=== PATIENT | male | born 1955 | race Caucasian/White ===

== ENCOUNTER 2018-12-10 17:21 | Observation (INO) | payer OTHER ==
[2018-12-10] MEDS ORDERED: hydrALAZINE HCL 20 MG/ML 1 ML VIAL IVP STA (17:47)
[2018-12-10] MEDS ORDERED: MORPHINE SULFATE 4 MG/ML SYRINGE IVP STA (17:51)
--- NOTE | 2018-12-10 17:53 | ED ---
General Adult HPI - General Chief complaint: Chest Pain Stated complaint: Chest pain Time Seen by Provider: 12/10/18 17:30 Source: patient, RN notes reviewed, old records reviewed Mode of arrival: wheelchair Limitations: no limitations - History of Present Illness Initial comments: 63-year-old male presents for evaluation of chest pain. Patient's pain is been ongoing for the past 3 days. Denies exertional component to his pain. This probably central left-sided chest pain with some paresthesia to the left arm. Patient has no known history of coronary artery disease. He does have history of aortic aneurysm which is being followed as an outpatient. Denies back pain. Denies nausea or diaphoresis. Denies abdominal pain. Denies extremity pain. Patient does have history of high blood pressure, currently on Toprol. He has not taken this yet today. He is a nonsmoker and otherwise healthy. - Related Data Home Medications Medication Instructions Recorded Confirmed Aspirin EC [Ecotrin Low Dose] 81 mg PO DAILY 12/10/18 12/10/18 Fluticasone Nasal [place] [Flonase 1 spray EA NOSTRIL DAILY PRN 12/10/18 12/10/18 Nasal [place]] Metoprolol Succinate (ER) [Toprol 25 mg PO HS 12/10/18 12/10/18 Xl] Multivitamins, Thera [Multivitamin 1 tab PO DAILY 12/10/18 12/10/18 (formulary)] Nitroglycerin Sl Tabs [Nitrostat] 0.4 mg SUBLINGUAL Q5M PRN 12/10/18 12/10/18 Allergies Allergy/AdvReac Type Severity Reaction Status Date / Time sulfamethoxazole Allergy Rash/Hives Verified 12/10/18 17:55 [From Bactrim] trimethoprim [From Bactrim] Allergy Rash/Hives Verified 12/10/18 17:55 Review of Systems ROS Statement: Those systems with pertinent positive or pertinent negative responses have been documented in the HPI. ROS Other: All systems not noted in ROS Statement are negative. Past Medical History Additional Past Medical History / Comment(s): kidney stones , anyerysum History of Any Multi-Drug Resistant Organisms: None Reported Additional Past Surgical History / Comment(s): lithotripsy Past Psychological History: No Psychological Hx Reported Smoking Status: Never smoker Past Alcohol Use History: Occasional Past Drug Use History: None Reported General Exam Limitations: no limitations General appearance: alert, in no apparent distress Head exam: Present: atraumatic, normocephalic Eye exam: Present: normal appearance, PERRL, EOMI ENT exam: Present: normal exam Neck exam: Present: normal inspection, tenderness Respiratory exam: Present: normal lung sounds bilaterally. Absent: respiratory distress, wheezes Cardiovascular Exam: Present: regular rate, normal rhythm, systolic murmur GI/Abdominal exam: Present: soft. Absent: distended, tenderness, guarding Extremities exam: Present: normal inspection, normal capillary refill, other ( Normal pulse exam, bilateral radial pulses 2+). Absent: pedal edema, calf tenderness Neurological exam: Present: alert, oriented X3, CN II-XII intact. Absent: motor sensory deficit Psychiatric exam: Present: normal affect, normal mood Skin exam: Present: warm, dry, intact. Absent: cyanosis, diaphoretic, pallor Course Vital Signs 12/10/18 12/10/18 17:27 18:06 Temperature 98.7 F Pulse Rate 62 84 Respiratory 20 18 Rate Blood Pressure 170/88 191/102 O2 Sat by Pulse 10 L 98 Oximetry EKG Findings - EKG Comments: EKG Findings:: EKG: Sinus bradycardia, first-degree AV block, left axis deviation, no ST segment elevation or depression, ventricular rate of 59, MT interval 260, QRS duration 94, QTC 423 Medical Decision Making - Medical Decision Making 63-year-old male presenting with intermittent chest pain over the past 3 days. History of aortic aneurysm. Patient's blood pressure is significantly elevated on arrival. There is concern for dissection. CT angiography is obtained, negative for dissection, shows 4.5 cm thoracic descending aneurysm, mild cardiomegaly, and does show coronary calcifications. Chest x-ray negative for any acute cardiac disease. CBC and CMP are unremarkable, initial troponin is negative. Patient given aspirin and started on heparin emergency department. Given the stuttering nature of his symptoms over the past 3 days as well as coronary calcifications on CT, I will admit this patient for unstable angina, serial cardiac enzymes, telemetry, and cardiology consultation. Case discussed with Dr. Chau, we will admit - Lab Data Result diagrams: 12/10/18 17:55 12/10/18 17:55 Lab Results 12/10/18 12/10/18 12/10/18 Range/Units 17:55 17:55 17:55 WBC 6.5 (3.8-10.6) k/uL RBC 4.91 (4.30-5.90) m/uL Hgb 14.5 (13.0-17.5) gm/dL Hct 41.8 (39.0-53.0) % MCV 85.1 (80.0-100.0) fL MCH 29.5 (25.0-35.0) pg MCHC 34.7 (31.0-37.0) g/dL RDW 12.9 (11.5-15.5) % Plt Count 200 (150-450) k/uL Neutrophils % 63 % Lymphocytes % 25 % Monocytes % 4 % Eosinophils % 6 % Basophils % 1 % Neutrophils # 4.1 (1.3-7.7) k/uL Lymphocytes # 1.6 (1.0-4.8) k/uL Monocytes # 0.3 (0-1.0) k/uL Eosinophils # 0.4 (0-0.7) k/uL Basophils # 0.0 (0-0.2) k/uL PT (9.0-12.0) sec INR (<1.2) APTT (22.0-30.0) sec Sodium 141 (137-145) mmol/L Potassium 3.9 (3.5-5.1) mmol/L Chloride 107 (98-107) mmol/L Carbon Dioxide 27 (22-30) mmol/L Anion Gap 7 mmol/L BUN 27 H (9-20) mg/dL Creatinine 0.93 (0.66-1.25) mg/dL Est GFR (CKD-EPI)AfAm >90 (>60 ml/min/1.73 sqM) Est GFR (CKD-EPI)NonAf 87 (>60 ml/min/1.73 sqM) Glucose 90 (74-99) mg/dL Calcium 9.6 (8.4-10.2) mg/dL Magnesium 2.0 (1.6-2.3) mg/dL Total Bilirubin 0.6 (0.2-1.3) mg/dL AST 24 (17-59) U/L ALT 36 (21-72) U/L Alkaline Phosphatase 60 (38-126) U/L Total Creatine Kinase 227 H (55-170) U/L CK-MB (CK-2) 1.6 (0.0-2.4) ng/mL CK-MB (CK-2) Rel Index 0.7 Troponin I <0.012 (0.000-0.034) ng/mL Total Protein 7.0 (6.3-8.2) g/dL Albumin 4.5 (3.5-5.0) g/dL 12/10/18 Range/Units 17:55 WBC (3.8-10.6) k/uL RBC (4.30-5.90) m/uL Hgb (13.0-17.5) gm/dL Hct (39.0-53.0) % MCV (80.0-100.0) fL MCH (25.0-35.0) pg MCHC (31.0-37.0) g/dL RDW (11.5-15.5) % Plt Count (150-450) k/uL Neutrophils % % Lymphocytes % % Monocytes % % Eosinophils % % Basophils % % Neutrophils # (1.3-7.7) k/uL Lymphocytes # (1.0-4.8) k/uL Monocytes # (0-1.0) k/uL Eosinophils # (0-0.7) k/uL Basophils # (0-0.2) k/uL PT 10.4 (9.0-12.0) sec INR 1.0 (<1.2) APTT 24.3 (22.0-30.0) sec Sodium (137-145) mmol/L Potassium (3.5-5.1) mmol/L Chloride (98-107) mmol/L Carbon Dioxide (22-30) mmol/L Anion Gap mmol/L BUN (9-20) mg/dL Creatinine (0.66-1.25) mg/dL Est GFR (CKD-EPI)AfAm (>60 ml/min/1.73 sqM) Est GFR (CKD-EPI)NonAf (>60 ml/min/1.73 sqM) Glucose (74-99) mg/dL Calcium (8.4-10.2) mg/dL Magnesium (1.6-2.3) mg/dL Total Bilirubin (0.2-1.3) mg/dL AST (17-59) U/L ALT (21-72) U/L Alkaline Phosphatase (38-126) U/L Total Creatine Kinase (55-170) U/L CK-MB (CK-2) (0.0-2.4) ng/mL CK-MB (CK-2) Rel Index Troponin I (0.000-0.034) ng/mL Total Protein (6.3-8.2) g/dL Albumin (3.5-5.0) g/dL Critical Care Time Critical Care Time: Yes Total Critical Care Time: 35 Disposition Clinical Impression: Unstable angina pectoris Disposition: ADMITTED IP TO THIS [facility] Condition: Stable Is patient prescribed a controlled substance at d/c from ED?: No Referrals: Epi Velazquez MD [Primary Care Provider] - 1-2 days Time of Disposition: 20:31
[2018-12-10 18:17] LABS: Basophils % (A) 1 %; Eosinophils # (A) 0.4 k/uL (0-0.7); Eosinophils % (A) 6 %; HCT 41.8 % (39.0-53.0); HGB 14.5 gm/dL (13.0-17.5); Lymphocytes # (A) 1.6 k/uL (1.0-4.8); Lymphocytes % (A) 25 %; MCH 29.5 pg (25.0-35.0); MCHC 34.7 g/dL (31.0-37.0); MCV 85.1 fL (80.0-100.0); Mean Platelet Volume 7.8; Monocytes # (A) 0.3 k/uL (0-1.0); Monocytes % (A) 4 %; Neutrophils # (A) 4.1 k/uL (1.3-7.7); Neutrophils % (A) 63 %; Platelet Count 200 k/uL (150-450); RBC 4.91 m/uL (4.30-5.90); RDW 12.9 % (11.5-15.5); WBC 6.5 k/uL (3.8-10.6)
[2018-12-10 18:25] LABS: Partial Thromboplastin Time 24.3 sec (22.0-30.0); Prothrombin Time 10.4 sec (9.0-12.0)
[2018-12-10 18:26] LABS: ALT 36 U/L (21-72); AST 24 U/L (17-59); Albumin 4.5 g/dL (3.5-5.0); Alkaline Phosphatase 60 U/L (38-126); Anion Gap 7 mmol/L; Blood Urea Nitrogen 27 mg/dL (9-20); Calcium 9.6 mg/dL (8.4-10.2); Carbon Dioxide 27 mmol/L (22-30); Chloride 107 mmol/L (98-107); Glucose 90 mg/dL (74-99); Potassium 3.9 mmol/L (3.5-5.1); Sodium 141 mmol/L (137-145); Total Bilirubin 0.6 mg/dL (0.2-1.3)
[2018-12-10 18:35] LABS: Creatine Kinase 227 U/L (55-170)
[2018-12-10] MEDS ORDERED: LABETALOL 5 MG/ML VIAL MDV IVP STA (18:35)
--- NOTE | 2018-12-10 18:47 | XR ---
EXAMINATION: XR chest 1V portable DATE AND TIME: 12/10/2018 6:08 PM CLINICAL INDICATION: Pain; chest pain and history of descending aortic aneurysm TECHNIQUE: AP upright portable COMPARISON: None FINDINGS: The lungs are clear. The pleural spaces are negative. The cardiac silhouette is not enlarged. Thoracic aorta tortuosity noted. The skeletal structures and soft tissues are negative for acute findings. IMPRESSION: 1. NO DEFINITE ACUTE PROCESS. 2. THORACIC AORTA TORTUOSITY.
[2018-12-10 18:48] LABS: Creatine Kinase MB 1.6 ng/mL (0.0-2.4); Troponin I <0.012 ng/mL (0.000-0.034)
--- NOTE | 2018-12-10 19:30 | CT ---
EXAMINATION TYPE: CT angio thor/abd pel aorta without and with IV contrast, with 3-D reconstruction r enderings DATE OF EXAM: 12/10/2018 COMPARISON: None HISTORY: Chest pain. hx of aneurysm CT DLP: 1399.1 mGycm. Automated Exposure Control for Dose Reduction was Utilized. CONTRAST: CT scan of the thorax, abdomen and pelvis is performed without and with IV Contrast, patien t injected with 100 mL of Isovue 370. 3-D reconstructions FINDINGS: LUNGS, PLEURAL SPACES AND AIRWAYS: The lungs are grossly clear, there is no concerning parenchymal ma ss or nodule identified. There is no pleural effusion or pneumothorax seen. The tracheobronchial t ree is patent. MEDIASTINUM: The thoracic aorta is negative for intramural hematoma or other focal findings on the noncontrast data set. There is no aortic dissection. There is aortic tortuosity noted. The caliber of the ascending thoracic aorta measures 4.5 cm diameter, top normal is 3.9 cm diameter. The anterior a ortic arch caliber measures 3.7 cm. Just distal to the origin of the left subclavian artery the poste rior aortic arch caliber measures 3.5 cm. The proximal descending thoracic aortic caliber measures 3. 1 cm, mid thoracic aorta caliber measures 3.2 cm, and just above the hiatus it measures 2.8 cm calibe r. There is mild cardiomegaly with panchamber enlargement. Minimal coronary calcifications are evident . No pericardial effusion. No mediastinal or hilar adenopathy. THORACIC SKELETAL STRUCTURES: No acute findings.. LIVER/GB: No significant abnormality is appreciated. PANCREAS: No significant abnormality is seen. SPLEEN: No significant abnormality is seen. ADRENALS: No significant abnormality is seen. KIDNEYS: No acute process. Large bilateral renal cysts are incidentally noted at the junction of the 2 large left upper pole posterior cyst is a subcentimeter high attenuation focus, likely calcificatio n. In addition, there is a geographic cluster of 1 to 9 mm nonobstructing left renal upper pole calcif ications, with the central clustering suggesting staghorn development. BOWEL: No significant abnormality is seen. GENITAL ORGANS: No gross abnormality seen. LYMPH NODES: No greater than 1cm abdominal or pelvic lymph nodes are appreciated. OSSEOUS STRUCTURES: No significant abnormality is seen. VASCULATURE: No acute findings. The precontrast data set is negative for intramural hematoma. There i s no acute aortic process. No aneurysmal dilation of the aorta or the iliac arterial systems. No diss ection or aneurysm. No acute venous abnormality. IMPRESSION: CHEST: Aneurysmal dilation of the thoracic aorta as described. Mild cardiomegaly and coronary calcifi cations. ABDOMEN AND PELVIS: 1) No acute process. 2) Large bilateral renal cystic masses, likely benign. Recommend one year follow-up dedicated renal m ass protocol CT or MRI without and with contrast - to ensure stability over time.
[2018-12-10] MEDS ORDERED: LABETALOL SYRINGE 5 MG/ML IVP STA (19:45)
[2018-12-10] MEDS ORDERED: ASPIRIN 325 MG TAB PO STA (19:49)
[2018-12-10] MEDS ORDERED: NITROGLYCERIN SL TABS 0.4 MG TAB SUBLINGUAL PRN (19:49)
[2018-12-10] MEDS ORDERED: amLODIPine 5 MG TAB PO STA (19:50)
[2018-12-10] MEDS ORDERED: HEPARIN SODIUM,PORCINE 5,000 UNIT/ML 1 ML VIAL IV PRN (19:50)
[2018-12-10] MEDS ORDERED: HEPARIN SODIUM,PORCINE 5,000 UNIT/ML 1 ML VIAL IV ONE (19:50)
[2018-12-10] MEDS ORDERED: METOPROLOL SUCCINATE (ER) 25 MG TAB.ER.24H PO STA (19:51)
[2018-12-10] MEDS ORDERED: SODIUM CHLORIDE 0.9% 500 ML 500 ML IV ONE (19:59)
[2018-12-10] MEDS ORDERED: HEPARIN SOD,PORK IN 0.45% NACL 25,000 UNIT in 0.45% NACL 1 250ML.BAG IV SCH (20:00)
[2018-12-10] MEDS ORDERED: MORPHINE SULFATE 4 MG/ML SYRINGE IV PRN (20:32)
[2018-12-10] MEDS ORDERED: ACETAMINOPHEN TAB 325 MG TAB PO PRN (20:32)
[2018-12-10] MEDS ORDERED: NALOXONE 0.4 MG/ML 1 ML VIAL IV PRN (20:32)
[2018-12-10] MEDS ORDERED: METOPROLOL SUCCINATE (ER) 25 MG TAB.ER.24H PO SCH (21:00)
[2018-12-10 22:17] VITALS: BMI 28.9
[2018-12-11] MEDS ORDERED: MELATONIN 3 MG TABLET PO SCH (00:15)
[2018-12-11 00:27] LABS: Creatine Kinase 177 U/L (55-170)
[2018-12-11 00:40] LABS: Creatine Kinase MB 1.3 ng/mL (0.0-2.4); Troponin I <0.012 ng/mL (0.000-0.034)
[2018-12-11 04:23] VITALS: RESP 18
[2018-12-11 06:17] LABS: Basophils % (A) 1 %; Eosinophils # (A) 0.3 k/uL (0-0.7); Eosinophils % (A) 6 %; HCT 41.6 % (39.0-53.0); Lymphocytes # (A) 1.4 k/uL (1.0-4.8); Lymphocytes % (A) 27 %; MCH 29.1 pg (25.0-35.0); MCHC 33.7 g/dL (31.0-37.0); MCV 86.3 fL (80.0-100.0); Mean Platelet Volume 7.1; Monocytes # (A) 0.3 k/uL (0-1.0); Monocytes % (A) 5 %; Neutrophils # (A) 3.1 k/uL (1.3-7.7); Neutrophils % (A) 60 %; Platelet Count 199 k/uL (150-450); RBC 4.82 m/uL (4.30-5.90); RDW 12.9 % (11.5-15.5); WBC 5.2 k/uL (3.8-10.6)
[2018-12-11 06:26] LABS: Anion Gap 7 mmol/L; Blood Urea Nitrogen 21 mg/dL (9-20); Carbon Dioxide 28 mmol/L (22-30); Chloride 106 mmol/L (98-107); Glucose 94 mg/dL (74-99); Potassium 3.7 mmol/L (3.5-5.1); Sodium 141 mmol/L (137-145)
[2018-12-11 06:53] LABS: Creatine Kinase 153 U/L (55-170)
[2018-12-11 07:05] LABS: Creatine Kinase MB 1.1 ng/mL (0.0-2.4); Troponin I <0.012 ng/mL (0.000-0.034)
--- NOTE | 2018-12-11 08:06 | P.CRDCN ---
History of Present Illness Consult date: 12/11/18 Requesting physician: Zheng Chau Consult reason: chest pain Chief complaint: Chest pain History of present illness: This is a pleasant 63-year-old gentleman with history of hypertension , nondiabetic, no hyperlipidemia, nonsmoker, rare EtOH, who has history of abdominal aortic aneurysm for which she has been followed at [facility]. He has recently moved to this area. He presents to the hospital on this occasion with symptoms of chest discomfort. He states that around 3 in the morning he woke up with a sharp discomfort in the center of his chest that radiated up into his jaw. Overall since then he is just didn't feel well, he denies any overt chest pressure heaviness just states he had an uncomfortable feeling in his chest. He denies any shortness of breath, no nausea, no diaphoresis. According to the patient, 6 years ago he had an episode of chest discomfort for which a stress test was performed which was reported to be normal. At that time the patient was found to have this abdominal aortic aneurysm which has been followed since then. He used to follow with a museum curator at [facility] in his recently moved to [place]. His most recent stress test was 3 years ago which he states was normal. He has been told in the past that his abdominal aneurysm has measured in the range of 4.3-4.5. His blood pressure on arrival here 170/80, heart rate in the 60s, 100% on room air. Blood pressure did go up to 220/122. This morning's blood pressure 138/70. Patient's home medications included Toprol 25 mg daily, aspirin 81 mg daily, multivitamin, and Flonase nasal spray when necessary. A computed tomography scan of the abdomen and pelvis was performed on admission here, revealed no acute process, large bilateral renal cystic mass is likely benign. AAA measuring 4.5 cm in diameter. Chest x-ray did not reveal any acute process. EKG shows normal sinus rhythm with no acute changes. White blood cell count is normal, hemoglobin 14.0, platelet count 199. Sodium 141, potassium 3.7, BUN 21 and creatinine 0.9. Troponins have been negative 3. At the time of my examination this morning he is currently chest pain-free. Past Medical History Additional Past Medical History / Comment(s): kidney stones , aortic aneurysm History of Any Multi-Drug Resistant Organisms: None Reported Past Surgical History: Tonsillectomy Additional Past Surgical History / Comment(s): lithotripsy x 5 times; eye sx, inguinal hernia (when pt was a baby) hand sx(ganglion cyst) foot sx Past Anesthesia/Blood Transfusion Reactions: Postoperative Nausea & Vomiting ( PONV) Smoking Status: Never smoker - Past Family History Mother Family Medical History: Cancer Additional Family Medical History / Comment(s): uterine CA Father Additional Family Medical History / Comment(s): rheumatic fever when young Medications and Allergies Home Medications Medication Instructions Recorded Confirmed Type Aspirin EC [Ecotrin Low Dose] 81 mg PO DAILY 12/10/18 12/10/18 History Fluticasone Nasal [place] [Flonase 1 spray EA NOSTRIL DAILY PRN 12/10/18 12/10/18 History Nasal [place]] Metoprolol Succinate (ER) [Toprol 25 mg PO HS 12/10/18 12/10/18 History Xl] Multivitamins, Thera [Multivitamin 1 tab PO DAILY 12/10/18 12/10/18 History (formulary)] Nitroglycerin Sl Tabs [Nitrostat] 0.4 mg SUBLINGUAL Q5M PRN 12/10/18 12/10/18 History Allergies Allergy/AdvReac Type Severity Reaction Status Date / Time sulfamethoxazole Allergy Rash/Hives Verified 12/10/18 17:55 [From Bactrim] trimethoprim [From Bactrim] Allergy Rash/Hives Verified 12/10/18 17:55 Physical Exam Vitals: Vital Signs Temp Pulse Pulse Resp BP BP Pulse Ox 12/11/18 04:00 97.6 F 60 18 139/75 96 12/10/18 23:51 68 17 12/10/18 23:42 98 F 68 17 132/81 96 12/10/18 22:12 97.5 F L 68 17 137/88 98 12/10/18 21:00 58 L 13 145/84 96 12/10/18 20:30 133/83 12/10/18 20:00 65 18 172/104 99 12/10/18 19:30 66 16 156/104 99 12/10/18 19:00 75 19 205/105 100 12/10/18 18:30 69 20 172/99 100 12/10/18 18:06 84 18 191/102 98 12/10/18 18:00 65 13 210/122 100 12/10/18 17:35 100 12/10/18 17:27 98.7 F 62 20 170/88 10 L Intake and Output 12/10/18 12/11/18 12/11/18 22:59 06:59 14:59 Intake Total 500 725.816 56.525 Balance 500 725.816 56.525 Intake: IV 160 normal saline 160 Intake, IV Titration 65.816 56.525 Amount Heparin Sod,Pork in 0.45% 65.816 56.525 NaCl 25,000 unit In 0.45 % NaCl 1 250ml.bag @ 10.8 UNITS/KG/HR 9.97 mls/hr IV .Q24H [facility] Rx#: [id number] Oral 500 500 Other: Voiding Method Toilet # Voids 1 Weight 92.397 kg 91.7 kg PHYSICAL EXAMINATION: GENERAL: HEENT: Head is atraumatic, normocephalic. Pupils equal, round. Sclera anicteric. Conjunctiva are clear. Mucous membranes of the mouth are moist. Neck is supple. There is no elevated jugular venous pressure. No Carotid bruit is heard. HEART EXAMINATION: 63-year-old gentleman in no acute distress at the time of my examination CHEST EXAMINATION: Lungs are clear to auscultation and precussion. No chest wall tenderness is noted on palpation or with deep breathing. ABDOMEN: Soft, nontender. Bowel sounds are heard. No organomegaly noted. EXTREMITIES: 2+ peripheral pulses with no evidence of peripheral edema and no calf tenderness noted. NEUROLOGIC patient is awake, alert and oriented 3 . . Results 12/11/18 05:40 12/11/18 05:40 Cardiac Enzymes 12/10/18 12/10/18 12/10/18 Range/Units 17:55 17:55 23:49 AST 24 (17-59) U/L CK-MB (CK-2) 1.6 1.3 (0.0-2.4) ng/mL Troponin I <0.012 <0.012 (0.000-0.034) ng/mL 12/11/18 Range/Units 05:40 AST (17-59) U/L CK-MB (CK-2) 1.1 (0.0-2.4) ng/mL Troponin I <0.012 (0.000-0.034) ng/mL Coagulation 12/10/18 12/11/18 Range/Units 17:55 01:52 PT 10.4 (9.0-12.0) sec APTT 24.3 59.9 H (22.0-30.0) sec CBC 12/10/18 12/11/18 Range/Units 17:55 05:40 WBC 6.5 5.2 (3.8-10.6) k/uL RBC 4.91 4.82 (4.30-5.90) m/uL Hgb 14.5 14.0 (13.0-17.5) gm/dL Hct 41.8 41.6 (39.0-53.0) % Plt Count 200 199 (150-450) k/uL Comprehensive Metabolic Panel 12/10/18 12/11/18 Range/Units 17:55 05:40 Sodium 141 141 (137-145) mmol/L Potassium 3.9 3.7 (3.5-5.1) mmol/L Chloride 107 106 (98-107) mmol/L Carbon Dioxide 27 28 (22-30) mmol/L BUN 27 H 21 H (9-20) mg/dL Creatinine 0.93 0.91 (0.66-1.25) mg/dL Glucose 90 94 (74-99) mg/dL Calcium 9.6 9.0 (8.4-10.2) mg/dL AST 24 (17-59) U/L ALT 36 (21-72) U/L Alkaline Phosphatase 60 (38-126) U/L Total Protein 7.0 (6.3-8.2) g/dL Albumin 4.5 (3.5-5.0) g/dL Current Medications Generic Name Dose Route Start Last Admin Trade Name Freq PRN Reason Stop Dose Admin Acetaminophen 650 mg 12/10/18 20:32 Tylenol Tab PO Q6HR PRN Mild Pain or Fever > 100.5 Aspirin 81 mg 12/11/18 09:00 Aspirin PO DAILY LEANNE Heparin Sodium (Porcine) 0 unit 12/10/18 19:50 Heparin IV PER PROTOCOL PRN Low PTT Protocol Heparin Sodium/Sodium Chloride 250 mls @ 9.97 mls/hr 12/10/18 20:00 12/11/18 07:36 25,000 unit/ Sodium Chloride IV 10.8 units/kg/hr .Q24H LEANNE 9.97 mls/hr Titration Protocol 10.8 UNITS/KG/HR Melatonin 3 mg 12/11/18 00:15 12/11/18 00:29 Melatonin PO 3 mg HS LEANNE Administration Morphine Sulfate 4 mg 12/10/18 20:32 Morphine Sulfate (Inj) IV Q4HR PRN Severe Pain Naloxone HCl 0.2 mg 12/10/18 20:32 Narcan IV Q2M PRN Opioid Reversal Nitroglycerin 0.4 mg 12/10/18 19:49 Nitrostat SUBLINGUAL Q5M PRN Chest Pain Intake and Output 12/10/18 12/11/18 12/11/18 22:59 06:59 14:59 Intake Total 500 725.816 56.525 Balance 500 725.816 56.525 Intake: IV 160 normal saline 160 Intake, IV Titration 65.816 56.525 Amount Heparin Sod,Pork in 0.45% 65.816 56.525 NaCl 25,000 unit In 0.45 % NaCl 1 250ml.bag @ 10.8 UNITS/KG/HR 9.97 mls/hr IV .Q24H LEANNE Rx#: [id number] Oral 500 500 Other: Voiding Method Toilet # Voids 1 Weight 92.397 kg 91.7 kg 12/11/18 05:40 12/11/18 05:40 EKG Interpretations (text) EKG shows normal sinus rhythm with no acute changes. Assessment and Plan Plan: Assessment and plan #1 chest pain with atypical features for acute coronary syndrome. Troponins negative 3. EKG shows normal sinus rhythm with no acute changes. #2 hypertension #3 abdominal aortic aneurysm Plan We will obtain an echocardiogram with Doppler study. Discontinue IV heparin. Patient has been recommended to undergo a stress test. Further recommendations will be based on those findings and patient's clinical course. DNP note has been reviewed, I agree with a documented findings and plan of care. Patient was seen and examined.
[2018-12-11] MEDS ORDERED: ASPIRIN 81 MG PO SCH (09:00)
[2018-12-11] MEDS ORDERED: amLODIPine 5 MG TAB PO SCH (09:00)
[2018-12-11 12:17] VITALS: TEMP 98.2
[2018-12-11 12:19] VITALS: BP 151/96; PULSE 57
--- NOTE | 2018-12-11 15:10 | ECHOS ---
STRESS ECHOCARDIOGRAM INDICATIONS: Chest pain. MEDICATIONS: Toprol. BASELINE HEART RATE: 63 BASELINE BLOOD PRESSURE: 140/92 MAXIMUM HEART RATE: 122 MAXIMUM BLOOD PRESSURE: 185/98 85% MPHR: 133 100% MPHR: 157 METS: 12.1 MAXIMUM STAGE REACHED: 4 TOTAL EXERCISE TIME: 11:00 CLINICAL INFORMATION: STRESS DATA: Pretesting physical examination showed a heart rate of 63, pressure is 140/92 mmHg. Baseline EKG showed sinus mechanism. The patient exercised on the treadmill according to Chris protocol for a total of 11 minutes and achieved 12.1 METS with max heart rate was 122, which is about 77% of maximum predicted heart rate. Maximum blood pressure was 185/98 mmHg. Clinically, the patient did not have any symptoms of chest pain or discomfort during the testing or on recovery. The EKG did not show any significant ST or T-wave abnormalities concerning for ischemia. ECHOCARDIOGRAM IMAGES: On echocardiogram images from parasternal long axis view, parasternal short axis view, apical 4 chamber and apical 2 chamber view were obtained as the baseline images, at the peak of the heart rate as well as on recovery. The echocardiogram images showed good augmentation in the left ventricular systolic function without any evidence of wall motion abnormalities concerning for ischemia. CONCLUSION: 1. Excellent exercise tolerance. 2. Normal EKG in response to exercise to the level of heart rate achieved, which is 77% of maximum predicted heart rate. 3. Normal echocardiogram to the level of heart rate achieved, which is 77% of maximum predicted heart rate. RAJEEV / LUPILLON: [id number] /
--- NOTE | 2018-12-11 15:26 | ECHOF ---
Referral Reason:assess lvf MEASUREMENTS -------- HEIGHT: 177.8 cm WEIGHT: 91.6 kg BP: 136/76 RVIDd: 3.2 cm (< 3.3) IVSd: 1.3 cm (0.6 - 1.1) LVIDd: 6.0 cm (3.9 - 5.3) LVPWd: 1.5 cm (0.6 - 1.1) IVSs: 2.1 cm LVIDs: 4.3 cm LVPWs: 1.7 cm LA Diam: 3.8 cm (2.7 - 3.8) LAESV Index (A-L): 32.87 ml/m Ao Diam: 4.3 cm (2.0 - 3.7) AV Cusp: 2.3 cm (1.5 - 2.6) MV EXCURSION: 15.965 mm (> 18.000) MV EF SLOPE: 39 mm/s (70 - 150) EPSS: 1.4 cm MV E Serafin: 0.46 m/s MV DecT: 322 ms MV A Serafin: 0.82 m/s MV E/A Ratio: 0.55 AR PHT: 630 ms RAP: 5.00 mmHg RVSP: 28.48 mmHg FINDINGS -------- Sinus rhythm. This was a technically good study. The left ventricle is mildly dilated. There is mild concentric left ventricular hypertrophy. Over all left ventricular systolic function is normal with, an EF between 55 - 60 %. The right ventricle is normal in size. LA is midly dilated 29-33ml/m2. The right atrium is normal in size. There is mild aortic valve sclerosis. The mitral valve leaflets are mildly thickened. There is trace to mild mitral regurgitation. Mild tricuspid regurgitation present. Right ventricular systolic pressure is normal at < 35 mmHg. Trace/mild (physiologic) pulmonic regurgitation. The aortic root is dilated measuring 4.3cm. Normal inferior vena cava with normal inspiratory collapse consistent with estimated right atrial pre ssure of 5 mmHg. The inferior vena cava is mildly dilated. There is no pericardial effusion. CONCLUSIONS -------- 1. Sinus rhythm. 2. This was a technically good study. 3. The left ventricle is mildly dilated. 4. There is mild concentric left ventricular hypertrophy. 5. Overall left ventricular systolic function is normal with, an EF between 55 - 60 %. 6. The right ventricle is normal in size. 7. LA is midly dilated 29-33ml/m2. 8. The right atrium is normal in size. 9. There is mild aortic valve sclerosis. 10. The mitral valve leaflets are mildly thickened. 11. There is trace to mild mitral regurgitation. 12. Mild tricuspid regurgitation present. 13. Right ventricular systolic pressure is normal at < 35 mmHg. 14. Trace/mild (physiologic) pulmonic regurgitation. 15. The aortic root is dilated measuring 4.3cm. 16. Normal inferior vena cava with normal inspiratory collapse consistent with estimated right atrial pressure of 5 mmHg. 17. The inferior vena cava is mildly dilated. 18. There is no pericardial effusion. ENTRY LEVEL ACCOUNT MANAGER: Tamanna Lord RDCS
[2018-12-11] MEDS ORDERED: ATORVASTATIN 40 MG TAB PO SCH (21:00)
--- NOTE | 2018-12-12 11:20 | P.HPIM ---
History of Present Illness H&P Date: 12/11/18 Chief Complaint: Chest pain HISTORY AND PHYSICAL AND DISCHARGE SUMMARY: This is a 63-year-old male patient of Dr. Epi Velazquez with past medical history of thoracic aortic aneurysm being monitored, hypertension. He recently moved to the [facility] from [place] and followed with a egg pasteurizer at [facility]. He states his cholesterol has been high-normal range and is not currently on a statin. Also recent CT was done last year to check his aneurysm and last stress test was done 3 years ago. Patient has history of having left-sided dull chest pain for couple of days along with tingling in his hand. He states he was sitting in front of a computer at the time it started. He did do some walking and symptoms did not change. Yesterday morning, he woke up with a sharp pain that woke him from sleep. This pain seemed to continue to bother him throughout the day. He took 1 nitroglycerin that seemed to help. He did not have any shortness of breath, nausea, palpitations, sweating. He just felt that something wasn't right. He came into [facility] emergency center for evaluation. His i nitial blood pressure was 220/122 his EKG was in normal sinus with no acute changes. CBC was essentially normal. Creatinine 0.9. Troponins negative on 3 draws chest x-ray showed no definite acute process. Thoracic aorta tortuosity. CAT scan revealed no acute process. Large bilateral renal cystic mass is likely benign. Recommend follow-up in one year. Chest showed aneurysmal dilatation of thoracic aorta at 4.5 cm. Mild cardiomegaly and coronary calcifications. Echocardiogram reveals EF of 55-60% without concentric left nuclear hypertrophy, mild mitral regurgitation, mild tricuspid regurgitation. Stress echo was normal and patient was cleared by cardiology for discharge. At the time of evaluation, patient was chest pain-free. Patient will be discharged home today in stable condition. Discharge Medication List Aspirin EC [Ecotrin Low Dose] 81 mg PO DAILY 12/10/18 [History] Fluticasone Nasal [place] [Flonase Nasal [place]] 1 spray EA NOSTRIL DAILY PRN [History] Metoprolol Succinate (ER) [Toprol XL] 25 mg PO HS 12/10/18 [History] Multivitamins, Thera [Multivitamin (formulary)] 1 tab PO DAILY 12/10/18 [History] Nitroglycerin Sl Tabs [Nitrostat] 0.4 mg SUBLINGUAL Q5M PRN 12/10/18 [History] Atorvastatin [Lipitor] 40 mg PO HS #30 tab 12/11/18 [Rx] Review of Systems All systems: negative Constitutional: Denies anorexia, Denies chills, Denies fatigue, Denies fever, Denies lethargy, Denies malaise, Denies poor appetite, Denies weakness Eyes: denies blurred vision, denies pain Ears, nose, mouth and throat: Denies dysphagia, Denies headache, Denies sore throat Cardiovascular: Reports chest pain, Denies dyspnea on exertion, Denies edema, Denies leg edema, Denies shortness of breath, Denies syncope Respiratory: Denies cough, Denies cough with sputum, Denies dyspnea, Denies excessive sputum, Denies hemoptysis, Denies home oxygen, Denies respiratory in fections, Denies wheezing Gastrointestinal: Denies abdominal pain, Denies diarrhea, Denies loss of appetite, Denies nausea, Denies vomiting Genitourinary: Denies dysuria Musculoskeletal: Denies fractures, Denies muscle weakness, Denies myalgias Integumentary: Denies pruritus, Denies rash, Denies wounds Neurological: Denies aphasia, Denies change in mentation, Denies change in speech, Denies confusion, Denies head injury, Denies headaches, Denies numbness, Denies seizures, Denies vertigo, Denies weakness Psychiatric: Denies anxiety, Denies depression Endocrine: Denies fatigue, Denies weight change Past Medical History Additional Past Medical History / Comment(s): kidney stones , aortic aneurysm History of Any Multi-Drug Resistant Organisms: None Reported Past Surgical History: Tonsillectomy Additional Past Surgical History / Comment(s): lithotripsy x 5 times; eye sx, inguinal hernia (when pt was a baby) hand sx(ganglion cyst) foot sx Past Anesthesia/Blood Transfusion Reactions: Postoperative Nausea & Vomiting (PONV) Smoking Status: Never smoker Additional Past Alcohol Use History / Comment(s): She is a lifelong nonsmoker. He denies any marijuana or illicit drug use. Drinks alcohol. He lives at home with his . - Past Family History Mother Family Medical History: Cancer Additional Family Medical History / Comment(s): Mother in her 60s from uterine cancer. Father Additional Family Medical History / Comment(s): rheumatic fever when young. Father at age 86 from old age. Sister(s) Additional Family Medical History / Comment(s): Patient has one sister that from some type of myelodysplastic disorder Daughter(s) Additional Family Medical History / Comment(s): Patient has 2 daughters with no major medical problems. Medications and Allergies Home Medications Medication Instructions Recorded Confirmed Type Aspirin EC [Ecotrin Low Dose] 81 mg PO DAILY 12/10/18 12/10/18 History Fluticasone Nasal [place] [Flonase 1 spray EA NOSTRIL DAILY PRN 12/10/18 12/10/18 History Nasal [place]] Metoprolol Succinate (ER) [Toprol 25 mg PO HS 12/10/18 12/10/18 History XL] Multivitamins, Thera [Multivitamin 1 tab PO DAILY 12/10/18 12/10/18 History (formulary)] Nitroglycerin Sl Tabs [Nitrostat] 0.4 mg SUBLINGUAL Q5M PRN 12/10/18 12/10/18 History Atorvastatin [Lipitor] 40 mg PO HS #30 tab 12/11/18 Rx Allergies Allergy/AdvReac Type Severity Reaction Status Date / Time sulfamethoxazole Allergy Rash/Hives Verified 12/10/18 17:55 [From Bactrim] trimethoprim [From Bactrim] Allergy Rash/Hives Verified 12/10/18 17:55 Physical Exam Vitals: Vital Signs Temp Pulse Pulse Resp BP BP Pulse Ox 12/11/18 04:00 97.6 F 60 18 139/75 96 12/10/18 23:51 68 17 12/10/18 23:42 98 F 68 17 132/81 96 12/10/18 22:12 97.5 F L 68 17 137/88 98 12/10/18 21:00 58 L 13 145/84 96 12/10/18 20:30 133/83 12/10/18 20:00 65 18 172/104 99 12/10/18 19:30 66 16 156/104 99 12/10/18 19:00 75 19 205/105 100 12/10/18 18:30 69 20 172/99 100 12/10/18 18:06 84 18 191/102 98 12/10/18 18:00 65 13 210/122 100 12/10/18 17:35 100 12/10/18 17:27 98.7 F 62 20 170/88 10 L Intake and Output 12/10/18 12/11/18 12/11/18 22:59 06:59 14:59 Intake Total 500 725.816 56.525 Balance 500 725.816 56.525 Intake: IV 160 normal saline 160 Intake, IV Titration 65.816 56.525 Amount Heparin Sod,Pork in 0.45% 65.816 56.525 NaCl 25,000 unit In 0.45 % NaCl 1 250ml.bag @ 10.8 UNITS/KG/HR 9.97 mls/hr IV .Q24H [facility] Rx#: [id number] Oral 500 500 Other: Voiding Method Toilet # Voids 1 1 Weight 92.397 kg 91.7 kg Gen: This is a 63-year-old male. He is sitting up in bed and appears to be comfortable and in no acute distress. HEENT: Head is atraumatic, normocephalic. Pupils equal, round. Sclerae is anicteric. NECK: Supple. No JVD. No lymphadenopathy. No thyromegaly. LUNGS: Clear to auscultation. No wheezes or rhonchi. No intercostal retractions. HEART: Regular rate and rhythm. No murmur. ABDOMEN: Soft. Bowel sounds are present. No masses. No tenderness. EXTREMITIES: No pedal edema. No calf tenderness. Dorsalis pedis +2 bilaterally. NEUROLOGICAL: Patient is awake, alert and oriented x3. Cranial nerves 2 through 12 are grossly intact. Results CBC & Chem 7: 12/11/18 05:40 12/11/18 05:40 Labs: Abnormal Lab Results - Last 24 Hours (Table) 12/10/18 12/10/18 12/10/18 Range/Units 17:55 17:55 23:49 APTT (22.0-30.0) sec BUN 27 H (9-20) mg/dL Total Creatine Kinase 227 H 177 H (55-170) U/L 12/11/18 12/11/18 12/11/18 Range/Units 01:52 05:40 08:56 APTT 59.9 H 48.0 H (22.0-30.0) sec BUN 21 H (9-20) mg/dL Total Creatine Kinase (55-170) U/L Thrombosis Risk Factor Assmnt - Choose All That Apply Any of the Below Risk Factors Present?: No Each Risk Factor Represents 2 Points: Age 61-74 years Each Risk Factor Represents 5 Points: Hip, pelvis, or leg fracture (< 1 month) Thrombosis Risk Factor Assessment Total Risk Factor Score: 7 Thrombosis Risk Factor Assessment Level: High Risk Assessment and Plan Plan: 1. Chest pain. Acute coronary syndrome ruled out. 2. Hypertension. 3. Thoracic aortic aneurysm. Patient will be admitted to the hospital for a minimum of 2 night stay. Discharge plan: Home Impression and plan of care have been directed as dictated by the signing p terrance. Leigh Bingham nurse practitioner acting as scribe for signing physician.
== END 2018-12-11 16:56 | disposition home or self-care (01) ==
LOC: EC 17:21 → INTOOBSV 20:32 → 3SCARD 20:32 → UNDODISIN 12-11 16:56
PROVIDERS: ADMIT Internal Medicine Geriatric Medicine; ATTEND Internal Medicine Geriatric Medicine
DX: R07.89 Other chest pain (principal); R20.2 Paresthesia of skin; I11.9 Hypertensive heart disease without heart failure; I71.2 Thoracic aortic aneurysm, without rupture; I25.10 Atherosclerotic heart disease of native coronary artery without angina pectoris; Z79.82 Long term (current) use of aspirin; Z79.899 Other long term (current) drug therapy; Z88.1 Allergy status to other antibiotic agents; Z88.2 Allergy status to sulfonamides; Z87.442 Personal history of urinary calculi; Z86.79 Personal history of other diseases of the circulatory system; Z80.49 Family history of malignant neoplasm of other genital organs; Z83.2 Family history of diseases of the blood and blood-forming organs and certain disorders involving the immune mechanism; Z84.89 Family history of other specified conditions
CPT/HCPCS: 96366 ×3; 96376; 96365; 96375; 99291; 36415; 93005; 93306; 93351; 80053; 80048; 82550 ×2; 82553 ×2; 83735; 84484 ×2; 85025 ×2; 85610; 85730 ×2; 71045; 71275; 74174; G0378 ×2; J2270; J0360; J1644 ×2; Q9967

== ENCOUNTER 2020-03-14 05:31 | Emergency (ER) | payer OTHER ==
[2020-03-14] MEDS ORDERED: SODIUM CHLORIDE 0.9% 1,000 ML IV STA (05:48)
[2020-03-14] MEDS ORDERED: HYDROmorphone 1 MG/ML 1 ML SYRINGE IVP STA ×2 (05:48→06:59)
[2020-03-14] MEDS ORDERED: ONDANSETRON 4 MG/2 ML VIAL IVP STA (05:48)
--- NOTE | 2020-03-14 06:20 | ED ---
Back Pain HPI - General Source: patient, RN notes reviewed, old records reviewed Limitations: no limitations <Clara Rodriguez - Last Filed: 03/14/20 08:49> <Tracy Bernal - Last Filed: 03/16/20 01:59> - General Chief Complaint: Back Pain/Injury Stated Complaint: Kidney Stones Time Seen by Provider: 03/14/20 06:03 - History of Present Illness Initial Comments: Patient is a 64-year-old male with a known history of multiple left-sided kidney stones. He reports that he was told that he is passing a kidney stone earlier this past month. Patient states that he has been manage the pain at home. He reports that this evening and unable overnight he woke up with severe left flank pain and feels that he is now passing this large stone. Patient reports that his urologist is Dr. Brantley in [place]. Patient states that he is to be scheduled for an upcoming lithotripsy within the end of the month if he is continue to have pain. Patient reports that he took a [place] prior to arrival. Patient states that he has been feeling nauseated but no specific vomiting. He reports that the pain is colicky in nature and ranges between a 6-10 and pain. (Clara Rodriguez) - Related Data Home Medications Medication Instructions Recorded Confirmed Aspirin EC [Ecotrin Low Dose] 81 mg PO DAILY 12/10/18 12/10/18 Fluticasone Nasal [place] [Flonase 1 spray EA NOSTRIL DAILY PRN 12/10/18 12/10/18 Nasal [place]] Metoprolol Succinate (ER) [Toprol 25 mg PO HS 12/10/18 12/10/18 XL] Multivitamins, Thera [Multivitamin 1 tab PO DAILY 12/10/18 12/10/18 (formulary)] Nitroglycerin Sl Tabs [Nitrostat] 0.4 mg SUBLINGUAL Q5M PRN 12/10/18 12/10/18 Previous Rx's Medication Instructions Recorded Atorvastatin [Lipitor] 40 mg PO HS #30 tab 12/11/18 HYDROcodone/APAP 5-325MG [[place] 1 tab PO Q6HR PRN #18 tab 03/14/20 5-325] Ketorolac [Toradol] 10 mg PO Q6HR #12 tab 05/24/20 Ondansetron Odt [Zofran Odt] 4 mg PO Q8HR PRN #20 tab 03/14/20 Tamsulosin [Flomax] 0.4 mg PO DAILY #7 cap 03/14/20 Allergies Allergy/AdvReac Type Severity Reaction Status Date / Time sulfamethoxazole Allergy Rash/Hives Verified 03/14/20 05:42 [From Bactrim] trimethoprim [From Bactrim] Allergy Rash/Hives Verified 03/14/20 05:42 Review of Systems ROS Other: All systems not noted in ROS Statement are negative. <Clara Rodriguez - Last Filed: 03/14/20 08:49> ROS Other: All systems not noted in ROS Statement are negative. <Tracy Bernal - Last Filed: 03/16/20 01:59> ROS Statement: Those systems with pertinent positive or pertinent negative responses have been documented in the HPI. Past Medical History Additional Past Medical History / Comment(s): kidney stones , aortic aneurysm History of Any Multi-Drug Resistant Organisms: None Reported Past Surgical History: Tonsillectomy Additional Past Surgical History / Comment(s): lithotripsy x 5 times; eye sx, inguinal hernia (when pt was a baby) hand sx(ganglion cyst) foot sx Past Anesthesia/Blood Transfusion Reactions: Postoperative Nausea & Vomiting (PONV) Past Psychological History: No Psychological Hx Reported Smoking Status: Never smoker Past Alcohol Use History: Occasional Past Drug Use History: None Reported - Past Family History Mother Family Medical History: Cancer Additional Family Medical History / Comment(s): Mother in her 60s from uterine cancer. Father Additional Family Medical History / Comment(s): rheumatic fever when young. Father at age 86 from old age. Sister(s) Additional Family Medical History / Comment(s): Patient has one sister that from some type of myelodysplastic disorder Daughter(s) Additional Family Medical History / Comment(s): Patient has 2 daughters with no major medical problems. <Clara Rodriguez - Last Filed: 03/14/20 08:49> General Exam Limitations: no limitations General appearance: alert, in no apparent distress Head exam: Present: atraumatic, normocephalic, normal inspection Eye exam: Present: normal appearance, PERRL, EOMI. Absent: scleral icterus, conjunctival injection, periorbital swelling ENT exam: Present: normal exam, mucous membranes moist Neck exam: Present: normal inspection. Absent: tenderness, meningismus, lymphadenopathy Respiratory exam: Present: normal lung sounds bilaterally. Absent: respiratory distress, wheezes, rales, rhonchi, stridor Cardiovascular Exam: Present: regular rate, normal rhythm, normal heart sounds. Absent: systolic murmur, diastolic murmur, rubs, gallop, clicks GI/Abdominal exam: Present: soft, tenderness (Left CVA tenderness), normal bowel sounds. Absent: distended, guarding, rebound, rigid Back exam: Present: normal inspection Neurological exam: Present: alert, oriented X3, CN II-XII intact Psychiatric exam: Present: normal affect, normal mood <Clara Rodriguez - Last Filed: 03/14/20 08:49> - General Exam Comments Initial Comments: Pleasant 64-year-old male. Alert and oriented 3. No significant distress. (Clara Rodriguez) Course Vital Signs 03/14/20 03/14/20 03/14/20 05:40 08:00 09:15 Pulse Rate 46 L 63 61 Respiratory 16 20 20 Rate Blood Pressure 135/82 168/104 165/95 O2 Sat by Pulse 99 100 98 Oximetry Medical Decision Making - Lab Data Result diagrams: 03/14/20 06:07 03/14/20 06:07 - Radiology Data Radiology results: report reviewed <Clara Rodriguez - Last Filed: 03/14/20 08:49> - Lab Data Result diagrams: 03/14/20 06:07 03/14/20 06:07 <Tracy Bernal - Last Filed: 03/16/20 01:59> - Medical Decision Making This Patient is a pleasant 64-year-old male who presents the emergency department today with severe left-sided flank pain onset in all the night. Has a known history of multiple kidney stones requiring lithotripsy. He reports that he sees Dr. brantley in [place]. At this time patient's labwork was reviewed relatively unremarkable. Patient's BUN and creatinine are within normal limits. Urinalysis does show evidence of hematuria however there is no signs of infection. Patient was reevaluated and resting comfortably in bed after receiving Dilaudid Zofran and Toradol. He was given a dose of Flomax as well. Computed tomography scan abdomen and pelvis show evidence of concerning for moderate to severe left-sided hydronephrosis with an 8 mm left ureteral calculus. There was evidence of multiple renal masses with incomplete with internal complexity and recommended further evaluation with CT with contrast to rule out possible renal cell carcinoma on a nonemergent basis. Patient was informed of these abnormal findings and Patient is aware of the masses on his kidney. I discussed the importance of addressing this with his urologist. Patient is stable at this time for discharge home with a further course of pain medication Flomax and following up promptly with his urologist as he does have plans to schedule a lithotripsy for this current kidney stone. Patient is agreeable to treatment plan and will comply. Strict return parameters were discussed. (Clara Rodriguez) I was available for consultation in the emergency department. The history and physical exam were done by the midlevel provider. I was consulted for this patients care. I reviewed the case with the midlevel provider and based on their presentation of the patient, I agree with the assessment, medical decision making and plan of care as documented. Chart was dictated using [employer] dictation software. Attempts were made to correct any dictation errors however some typographical errors may persist. Patient was seen during a national state of emergency due to the Covid-19 pandemic. (Tracy Bernal) - Lab Data Lab Results 03/14/20 03/14/20 03/14/20 Range/Units 06:07 06:07 06:07 WBC 9.4 (3.8-10.6) k/uL RBC 5.03 (4.30-5.90) m/uL Hgb 14.4 (13.0-17.5) gm/dL Hct 43.2 (39.0-53.0) % MCV 85.9 (80.0-100.0) fL MCH 28.7 (25.0-35.0) pg MCHC 33.4 (31.0-37.0) g/dL RDW 12.5 (11.5-15.5) % Plt Count 110 L (150-450) k/uL Neutrophils % 83 % Lymphocytes % 10 % Monocytes % 4 % Eosinophils % 2 % Basophils % 0 % Neutrophils # 7.8 H (1.3-7.7) k/uL Lymphocytes # 0.9 L (1.0-4.8) k/uL Monocytes # 0.4 (0-1.0) k/uL Eosinophils # 0.2 (0-0.7) k/uL Basophils # 0.0 (0-0.2) k/uL Sodium 138 (137-145) mmol/L Potassium 4.5 (3.5-5.1) mmol/L Chloride 104 (98-107) mmol/L Carbon Dioxide 24 (22-30) mmol/L Anion Gap 10 mmol/L BUN 28 H (9-20) mg/dL Creatinine 1.04 (0.66-1.25) mg/dL Est GFR (CKD-EPI)AfAm 88 (>60 ml/min/1.73 sqM) Est GFR (CKD-EPI)NonAf 76 (>60 ml/min/1.73 sqM) Glucose 114 H (74-99) mg/dL Calcium 9.1 (8.4-10.2) mg/dL Total Bilirubin 0.6 (0.2-1.3) mg/dL AST 25 (17-59) U/L ALT 19 (4-49) U/L Alkaline Phosphatase 72 (38-126) U/L Total Protein 7.4 (6.3-8.2) g/dL Albumin 4.6 (3.5-5.0) g/dL Amylase 80 (30-110) U/L Lipase 305 H (23-300) U/L Urine Color Yellow Urine Appearance Clear (Clear) Urine pH 5.5 (5.0-8.0) Ur Specific [place] 1.020 (1.001-1.035) Urine Protein Trace H (Negative) Urine Glucose (UA) Negative (Negative) Urine Ketones Negative (Negative) Urine Blood Large H (Negative) Urine Nitrite Negative (Negative) Urine Bilirubin Negative (Negative) Urine Urobilinogen <2.0 (<2.0) mg/dL Ur Leukocyte Esterase Negative (Negative) Urine RBC 39 H (0-5) /hpf Urine WBC 2 (0-5) /hpf Ur Squamous Epith Cells <1 (0-4) /hpf Hyaline Casts 1 (0-2) /lpf Urine Mucus Many H (None) /hpf - Radiology Data CT shows moderate to severe left-sided hydroureter nephrosis secondary to an obstructing proximal 8 mm left ureteral calculus. Multiple renal masses some demonstrating internal complexity and ill-definition of the lower border of the kidney. CT with contrast renal mass protocol is recommended for further evaluation of these masses of potential renal cell carcinoma on a nonemergent basis. Numerous left solitary right nonobstructing additional renal colliculi. (Clara Rodriguez) Disposition Is patient prescribed a controlled substance at d/c from ED?: Yes If prescribed controlled substance>3 days was MAPS reviewed?: Prescribed <3 Days If opioid is for acute pain is fill amount 7 days or less?: Yes If Rx opioid, was Start Talking consent form obtained?: Yes Time of Disposition: 08:51 <Clara Rodriguez - Last Filed: 03/14/20 08:49> <Tracy Bernal - Last Filed: 03/16/20 01:59> Clinical Impression: Left ureteral stone, Renal mass, left Disposition: HOME SELF-CARE Condition: Good Instructions (If sedation given, give patient instructions): Ureteral Stones (ED) Additional Instructions: Patient is to follow-up with primary care physician and urology. Recommended contacting your urologist and scheduling of lithotripsy in the near future. Recommended follow-up in regards to the renal masses noted on CAT scan. Return to emergency department if any alarming signs or symptoms occur. Prescriptions: Tamsulosin [Flomax] 0.4 mg PO DAILY #7 cap HYDROcodone/APAP 5-325MG [[place] 5-325] 1 tab PO Q6HR PRN #18 tab PRN Reason: Pain Ketorolac [Toradol] 10 mg PO Q6HR #12 tab Ondansetron Odt [Zofran Odt] 4 mg PO Q8HR PRN #20 tab PRN Reason: Nausea Referrals: Epi Velazquez MD [Primary Care Provider] - 1-2 days
[2020-03-14 06:21] LABS: Appearance,Urine Clear (Clear); Bilirubin,Urine Negative (Negative); Blood,Urine Large (Negative); Color,Urine Yellow; Glucose,Urine (UA) Negative (Negative); Hyaline Casts,Urine 1 /lpf (0-2); Ketones,Urine Negative (Negative); Leukocyte Esterase,Urine Negative (Negative); Mucus,Urine Many /hpf; Nitrite,Urine Negative (Negative); PH, Urine 5.5 (5.0-8.0); Protein,Urine Trace (Negative); RBC,Urine 39 /hpf (0-5); Squamous Epithelial Cell,Urine <1 /hpf (0-4); Urobilinogen,Urine <2.0 mg/dL (<2.0); WBC,Urine 2 /hpf (0-5)
[2020-03-14 06:24] LABS: Basophils % (A) 0 %; Eosinophils # (A) 0.2 k/uL (0-0.7); Eosinophils % (A) 2 %; HCT 43.2 % (39.0-53.0); HGB 14.4 gm/dL (13.0-17.5); Lymphocytes # (A) 0.9 k/uL (1.0-4.8); Lymphocytes % (A) 10 %; MCH 28.7 pg (25.0-35.0); MCHC 33.4 g/dL (31.0-37.0); MCV 85.9 fL (80.0-100.0); Mean Platelet Volume 9.9; Monocytes # (A) 0.4 k/uL (0-1.0); Monocytes % (A) 4 %; Neutrophils # (A) 7.8 k/uL (1.3-7.7); Neutrophils % (A) 83 %; Platelet Count 110 k/uL (150-450); RBC 5.03 m/uL (4.30-5.90); RDW 12.5 % (11.5-15.5); WBC 9.4 k/uL (3.8-10.6)
[2020-03-14 06:26] LABS: Albumin 4.6 g/dL (3.5-5.0); Calcium 9.1 mg/dL (8.4-10.2); Potassium 4.5 mmol/L (3.5-5.1); Total Bilirubin 0.6 mg/dL (0.2-1.3); Total Protein 7.4 g/dL (6.3-8.2)
--- NOTE | 2020-03-14 06:46 | XR ---
EXAMINATION TYPE: XR KUB DATE OF EXAM: 03/14/2020 COMPARISON: NONE HISTORY: Left sided flank pain TECHNIQUE: 2 views upright FINDINGS: Bowel gas pattern is normal. There is no sign of intestinal obstruction or pneumoperitoneum . Fecal pattern is normal. There is no evidence of a mass. Heart appears enlarged. There is probably some calcification in the upper pole left kidney. IMPRESSION: Nonacute abdomen.
[2020-03-14] MEDS ORDERED: TAMSULOSIN 0.4 MG CAP.ER.24H PO STA (06:59)
[2020-03-14] MEDS ORDERED: KETOROLAC 30 MG/ML 1 ML VIAL IVP STA (06:59)
[2020-03-14] MEDS ORDERED: SODIUM CHLORIDE 0.9% 1,000 ML IV ONE (07:00)
--- NOTE | 2020-03-14 08:20 | CT ---
EXAMINATION TYPE: CT abdomen pelvis wo con DATE OF EXAM: 03/14/2020 COMPARISON: 12/10/2018 CT angiogram of the chest, abdomen, and pelvis HISTORY: left flank pain, gross hematuria, history of prior renal stones CT DLP: 648 mGycm Automated exposure control for dose reduction was used. TECHNIQUE: Helical acquisition of images was performed from the lung bases through the pelvis. FINDINGS: Lack of intravenous and oral contrast limit evaluation of both the hollow and solid viscera . LUNG BASES: Dependent subsegmental atelectasis at the lung bases and pleural parenchymal scarring at the left lung base. Heart is mildly enlarged. LIVER/GB: Too small to accurately characterize punctate hepatic lesion is hypoattenuated hepatic dome on image 10, unchanged from the prior. PANCREAS: Few punctate pancreatic calcifications related to chronic pancreatitis. SPLEEN: No splenomegaly. Small splenule adjacent to the [place] spleen. ADRENALS: No significant abnormality is seen. KIDNEYS: Moderate to severe left hydroureteronephrosis is present secondary to an 8 mm obstructing pr oximal left ureteral calculus. Numerous additional calculi are seen on the left within the kidney rupert t are nonobstructing (approximately 16). Punctate 1 to 2 mm nonobstructing right renal calculus seen. Numerous bilateral renal masses are redemonstrated. There is poor definition of the left lower pole and mild perinephric fat stranding. Contrast is necessary to fully characterize these masses. Some de pendent debris is noted in the superior pole left renal mass on image 44. No radiopaque calculi in th e urinary bladder. No right-sided hydronephrosis. ADENOPATHY: Limited evaluation without intravenous contrast. No gross greater than 1 cm short axis l ymph node in the abdomen or pelvis. OSSEOUS STRUCTURES: There is mild osseous demineralization. Punctate sclerotic focus the right femor al head and foci of the left acetabulum and femoral head as well as right hemisacrum and right iliac bone are nonspecific and could be on the basis of bone islands, similar to the prior. Minimal retroli sthesis of L4 on L5 is likely on a degenerative basis. Mild degenerative change of the spine. BOWEL: Moderate degree colonic fecal stasis. No dilated large or small bowel. OTHER: Abdominal aorta is tortuous in course and limited without contrast. Atherosclerosis. IMPRESSION: 1. MODERATE TO SEVERE LEFT-SIDED HYDROURETERONEPHROSIS SECONDARY TO AN OBSTRUCTING PROXIMAL 8MM LEFT URETERAL CALCULUS. 2. MULTIPLE RENAL MASSES, SOME DEMONSTRATING INTERNAL COMPLEXITY, AND ILL DEFINITION OF THE LEFT LOWE R POLE OF THE KIDNEY. CT WITH CONTRAST (RENAL MASS PROTOCOL) IS RECOMMENDED TO FURTHER EVALUATE THESE MASSES FOR POTENTIAL RENAL CELL CARCINOMA ON A NONEMERGENT BASIS. 3. NUMEROUS LEFT AND SOLITARY RIGHT NONOBSTRUCTING ADDITIONAL RENAL CALCULI.
[2020-03-14] MEDS ORDERED: ONDANSETRON 4 MG ODT STARTER PACK 2 TAB BTL PO STA (08:48)
[2020-03-14] MEDS ORDERED: ACET/COD 300 MG/30 MG STARTER PACK 6 TAB BTL PO STA (08:48)
[2020-03-14 09:01] VITALS: RESP 20
[2020-03-14 09:16] VITALS: BP 165/95; PULSE 61
== END 2020-03-14 09:17 | disposition home or self-care (01) ==
LOC: EC 05:31
DX: N13.2 Hydronephrosis with renal and ureteral calculous obstruction (principal); N28.89 Other specified disorders of kidney and ureter; Z79.82 Long term (current) use of aspirin; Z79.899 Other long term (current) drug therapy; Z88.1 Allergy status to other antibiotic agents; Z88.2 Allergy status to sulfonamides
CPT/HCPCS: 36415; 80053; 82150; 83690; 85025; 81001; 74018; 74176; 99284; 96374; 96375 ×2; 96376; 96361 ×3; J2405; J1885; J1170; S0119

== ENCOUNTER → 2020-03-18 | Outpatient (CLI) | payer OTHER ==
--- NOTE | 2020-03-18 10:53 | XR ---
EXAMINATION TYPE: XR abdomen 1V DATE OF EXAM: 03/18/2020 10:21 AM CLINICAL HISTORY: Urethral calculus, left ureteral calculus TECHNIQUE: Single supine KUB image of the abdomen is obtained. COMPARISON: 03/14/2020 abdominal x-ray and CT. FINDINGS: There is a faint 7 mm density overlying the left L3 transverse process. Clustered calculi o verlie the left renal shadow near the upper pole together measuring 1.1 cm. Somewhat lobulated margin of the right kidney could be artifactual however note is made of follow-up CT with contrast recommen dation on the prior CT of 03/14/2020. The known right renal calculi are not visualized radiographicall y. No dilated large or small bowel. Moderate arthropathy of the hips. IMPRESSION: 1. Faint 7 mm density overlying the left L3 transverse process is presumed to represent the previousl y seen obstructing left ureteral calculus on the CT of 03/14/2020. 2. Additional clustered left renal calculi are seen, nonobstructing on the prior CT. The known right renal calculi are not visualized given their small size. 3. Lobulated margin of the right kidney. Multiple bilateral renal masses were seen on the prior CT fo r which follow-up CT with contrast was recommended and remains a recommendation.
== END | disposition home or self-care (01) ==
LOC: RADXRMAIN 10:09
PROVIDERS: ATTEND Urology
DX: N20.2 Calculus of kidney with calculus of ureter (principal); N28.89 Other specified disorders of kidney and ureter
CPT/HCPCS: 74018

== ENCOUNTER → 2020-03-31 | Outpatient (CLI) | payer OTHER ==
--- NOTE | 2020-03-31 13:17 | XR ---
EXAMINATION TYPE: XR KUB DATE OF EXAM: 03/31/2020 COMPARISON: 03/18/2020 HISTORY: Pain TECHNIQUE: One view abdominal series FINDINGS: The osseous structures are intact. The bowel gas pattern is nonspecific. Right kidney: No suspicious calcifications. Left kidney: There are approximately 8 calcifications the largest measuring a diameter of 4 mm overly ing the upper pole the left kidney. Pelvis: There are punctate calcifications in pelvis which are nonspecific. Arthropathy of the hips. IMPRESSION: 1. Nonspecific abdomen. 2. Persistent upper pole clustered calcifications as measured above.
== END | disposition home or self-care (01) ==
LOC: RADXRMAIN 12:55
PROVIDERS: ATTEND Urology
DX: N20.0 Calculus of kidney (principal)
CPT/HCPCS: 74018

== ENCOUNTER → 2020-05-03 | Outpatient (CLI) | payer OTHER ==
--- NOTE | 2020-05-03 20:38 | CT ---
EXAMINATION TYPE: CT angio chest DATE OF EXAM: 05/03/2020 COMPARISON: CTA aorta December 10, 2018 HISTORY: Thoracic aortic aneurysm. CT DLP: 691.4 mGycm. Automated Exposure Control for Dose Reduction was Utilized. CONTRAST: CTA scan of the thorax is performed without and with IV Contrast, patient injected with 100ml mL of I sovue 370, pulmonary embolism protocol. 3-D Images are created on independent workstation and reviewe d. FINDINGS: LUNGS: Mild to moderate underlying emphysematous change with mild scattered areas of linear fibrosis bilaterally. No suspicious focal consolidation or groundglass opacity. No pleural effusion or pneumot horax seen bilaterally. MEDIASTINUM: There are no greater than 1 cm hilar or mediastinal lymph nodes. Small to tiny pericardi al effusion is slightly more prominent. No cardiomegaly. Stable ascending aortic aneurysm up to 4.4 c m axial image 38. No extension into the arch or descending aorta. Some ectasia of the descending aort a noted. OTHER: Multiple simple appearing thin-walled cysts scattered throughout visualized portion of both ki dneys. IMPRESSION: Stable 4.4 cm ascending aortic aneurysm.
== END | disposition home or self-care (01) ==
LOC: RADCTMAIN 16:29
PROVIDERS: ATTEND Internal Medicine Interventional Cardiology
DX: I71.2 Thoracic aortic aneurysm, without rupture (principal)
CPT/HCPCS: 82565; 84520; 71275; 36415; Q9967

== ENCOUNTER → 2020-09-30 | Outpatient (CLI) | payer OTHER ==
--- NOTE | 2020-09-30 16:01 | XR ---
EXAMINATION TYPE: XR KUB DATE OF EXAM: 09/30/2020 COMPARISON: 07/27/2020 INDICATION: Calcifications TECHNIQUE: Single view abdomen supine view FINDINGS: There is a normal bowel gas pattern. Psoas margins are normal. No organomegaly is present. There is a cluster of small calcifications in the left kidney each measuring approximately 3 to 4 mm There is a 0.4 cm calcification overlying the right sacral ala can be a mid ureteral stone. IMPRESSION: 1. Multiple grouped small calcifications upper pole left kidney 2. Mid right ureteral stone not excluded.
== END | disposition home or self-care (01) ==
LOC: RADXRMAIN 13:11
PROVIDERS: ATTEND Urology
DX: N20.0 Calculus of kidney (principal)
CPT/HCPCS: 74018

== ENCOUNTER → 2020-10-04 | Outpatient (CLI) | payer OTHER ==
[2020-10-04 09:32] LABS: Basophils % (A) 1 %; Eosinophils # (A) 0.3 k/uL (0-0.7); Eosinophils % (A) 5 %; HCT 42.5 % (39.0-53.0); HGB 14.5 gm/dL (13.0-17.5); Lymphocytes # (A) 1.1 k/uL (1.0-4.8); Lymphocytes % (A) 23 %; MCH 29.3 pg (25.0-35.0); MCHC 34.1 g/dL (31.0-37.0); MCV 86.1 fL (80.0-100.0); Mean Platelet Volume 7.7; Monocytes # (A) 0.3 k/uL (0-1.0); Monocytes % (A) 6 %; Neutrophils # (A) 3.1 k/uL (1.3-7.7); Neutrophils % (A) 63 %; Platelet Count 192 k/uL (150-450); RBC 4.94 m/uL (4.30-5.90); RDW 12.2 % (11.5-15.5); WBC 4.9 k/uL (3.8-10.6)
== END | disposition home or self-care (01) ==
LOC: LABPAT 08:14
PROVIDERS: ATTEND Urology
DX: Z01.818 Encounter for other preprocedural examination (principal); N20.0 Calculus of kidney
CPT/HCPCS: 36415; 85025

== ENCOUNTER 2020-10-11 07:48 | Day surgery (SDC) | payer OTHER ==
--- NOTE | 2020-10-08 15:28 | P.GSHP ---
History of Present Illness H&P Date: 10/08/20 Chief Complaint: Left renal calculi The patient is a 64-year-old male with a history of calcium urolithiasis. He has undergone successful ESWL treatment of renal and ureteral calculi on several occasions, most recently for a left ureteral calculus in 03/2020 at [facility]. A recent KUB shows a collection calculi in the left upper pole calyx with several calculi measuring between 3 and 4.5 mm size. The patient wishes to proceed with elective ESWL treatment of these calculi and is admitted for this. - Constitutional Constitutional: Denies chills, Denies fever - Cardiovascular Cardiovascular: Denies chest pain, Denies shortness of breath, Denies syncope - Respiratory Respiratory: Denies cough, Denies wheezing - Gastrointestinal Gastrointestinal: Denies abdominal pain - Genitourinary (Male) Genitourinary: Denies dysuria, Denies hematuria Past Medical History Past Medical History: Hypertension Additional Past Medical History / Comment(s): ascending aortic aneurysm, kidney stones ., Tinnitus. History of Any Multi-Drug Resistant Organisms: None Reported Past Surgical History: Tonsillectomy Additional Past Surgical History / Comment(s): lithotripsy x 5 times; eye sx, inguinal hernia (baby)., hand sx(ganglion cyst) foot sx Past Anesthesia/Blood Transfusion Reactions: Motion Sickness, Postoperative Nausea & Vomiting (PONV) Past Psychological History: No Psychological Hx Reported Smoking Status: Never smoker Past Alcohol Use History: Occasional Additional Past Alcohol Use History / Comment(s): . Past Drug Use History: None Reported - Past Family History Mother Family Medical History: Cancer Additional Family Medical History / Comment(s): Mother in her 60s from uterine cancer. Father Additional Family Medical History / Comment(s): rheumatic fever when young. Father at age 86 from old age. Sister(s) Additional Family Medical History / Comment(s): Patient has one sister that from some type of myelodysplastic disorder Daughter(s) Family Medical History: No Reported History Additional Family Medical History / Comment(s): . Medications and Allergies Home Medications Medication Instructions Recorded Confirmed Type Metoprolol Succinate (ER) [Toprol 25 mg PO HS 12/10/18 10/07/20 History XL] Co Q-10 1 dose PO DAILY 10/07/20 10/07/20 History Multivit-Min/Folic/Vit K/Lycop 1 each PO 10/07/20 History [Men's Multivitamin Tablet] Allergies Allergy/AdvReac Type Severity Reaction Status Date / Time sulfamethoxazole Allergy Rash/Hives Verified 10/07/20 11:50 [From Bactrim] trimethoprim [From Bactrim] Allergy Rash/Hives Verified 10/07/20 11:50 Surgical - Exam - General well developed, well nourished, no distress - ENT no hearing loss - Neck no masses, no lymphadectomy - Respiratory normal expansion, clear to auscultation - Cardiovascular Rhythm: regular Abnormal Heart Sounds: no systolic murmur, no diastolic murmur - Abdomen Abdomen: soft, non tender, no organomegaly - Genitourinary normal penis with no external lesions, no testicles non-tender Assessment and Plan (1) Calculus of kidney Narrative/Plan: The patient will undergo ESWL treatment of the collection of small calculi in the upper pole of the left kidney under intravenous sedation performed by Dr. Castillo. He is aware of the risks which include anesthesia, intrarenal or perinephric bleeding, inability to fragment all calculi and ureteral obstruction from a calculus fragment. Status: Acute Code(s): N20.0 - CALCULUS OF KIDNEY SNOMED Code(s): 83199332
[~2020-10-11 07:48] MED LIST: DEXAMETHASONE SOD PHOSPHATE 4 MG/ML 1 ML VIAL IV ONE; HYDROmorphone 0.5 MG/0.5 ML SYRINGE IVP PRN; LACTATED RINGERS 1,000 ML IV SCH; ONDANSETRON 4 MG/2 ML VIAL IVP ONE
[2020-10-11 08:19] VITALS: RESP 16; TEMP 97.1
--- NOTE | 2020-10-11 08:32 | XR ---
EXAMINATION TYPE: XR KUB DATE OF EXAM: 10/11/2020 HISTORY: Pain Comparison: None.Single KUB is submitted for interpretation. Findings: Right renal calculi: None Visualized. Right ureteral calculi: None Visualized. Left renal calculi: 5 mm calculus upper pole left kidney. Cluster of calculi seen previously are les s conspicuous on today's examination. Left ureteral calculi: None Visualized. Pelvic calcifications: None Visualized. Bowel gas pattern is unremarkable. No free air. No mass effects. IMPRESSION: 1. 5 mm calculus upper pole left kidney. Cluster of calculi seen previously are less conspicuous on t mandie's examination.
[2020-10-11] MEDS ORDERED: LIDOCAINE 1% (10MG/ML) FOR IV START INTRADERMA ONE (08:41)
[2020-10-11] MEDS ORDERED: KETAMINE 10 MG/ML 20 ML VIAL ONE (09:12)
[2020-10-11] MEDS ORDERED: MIDAZOLAM 2 MG/2 ML VIAL ONE (09:12)
[2020-10-11] MEDS ORDERED: PROPOFOL 10 MG/ML 20 ML VIAL IV ONE (09:12)
[2020-10-11] MEDS ORDERED: fentaNYL (PF) 50 MCG/ML 2 ML AMP ONE (09:12)
[2020-10-11] MEDS ORDERED: ePHEDrine SULFATE/0.9% NACL/PF 50 MG/5 ML SYRINGE IV ONE (09:12)
--- NOTE | 2020-10-11 09:57 | P.OP ---
Date of Procedure: 10/11/20 Preoperative Diagnosis: Left renal calculi Postoperative Diagnosis: Same Procedure(s) Performed: Left extracorporal shockwave lithotripsy (ESWL) Anesthesia: MAC Surgeon: Tony Castillo Estimated Blood Loss (ml): 0 IV fluids (ml): 800 Pathology: none sent Condition: stable Disposition: PACU Indications for Procedure: The patient is a 65-year-old white male with several left upper pole renal calculi measuring up to 4.5 mm in diameter. The calculi are immediately adjacent to one another and he comes for ESWL. Operative Findings: Left upper pole renal calculi appear to fragment. Description of Procedure: The patient was taken to the operating room and placed on the [employer] Delta II lithotripter in the supine position. The calculi were seen on biplanar fluoroscopy. Once the patient was properly positioned and sedated, lithotripsy was performed. The energy level was gradually increased per protocol, to an energy level of 5. After 200 shocks were administered, a 2 minute pause was instituted per protocol. A total of 2500 shocks were given at a rate of 80 shocks per minute. Fluoroscopy was utilized at a minimum to ensure proper positioning and determine the treatment status. The appearance of the calculus appeared to change, suggesting fragmentation had occurred. The patient tolerated the procedure well was taken to the recovery room in stable condition. Instructions were given to strain the urine, and the patient will follow-up within one week.
[2020-10-11 10:38] VITALS: BP 155/79; PULSE 68
== END 2020-10-11 11:01 | disposition home or self-care (01) ==
LOC: ORWHC2ENDO 07:48
PROVIDERS: ATTEND Urology
DX: N20.0 Calculus of kidney (principal); I10 Essential (primary) hypertension; I71.2 Thoracic aortic aneurysm, without rupture; Z88.2 Allergy status to sulfonamides; Z79.899 Other long term (current) drug therapy; Z87.442 Personal history of urinary calculi; Z90.89 Acquired absence of other organs; Z98.890 Other specified postprocedural states; Z80.49 Family history of malignant neoplasm of other genital organs; Z84.89 Family history of other specified conditions
CPT/HCPCS: 74018; 50590; J2250; J1100; J2405; J3010; J2704

== ENCOUNTER 2020-10-13 21:11 | Emergency (ER) | payer OTHER ==
[2020-10-13 21:23] VITALS: BP 180/86; PULSE 67; RESP 20; TEMP 98.6
[2020-10-13] MEDS ORDERED: SODIUM CHLORIDE 0.9% 1,000 ML IV STA (21:38)
[2020-10-13 22:26] LABS: Basophils # (A) 0.1 k/uL (0-0.2); Basophils % (A) 1 %; Eosinophils # (A) 0.4 k/uL (0-0.7); Eosinophils % (A) 6 %; HCT 42.1 % (39.0-53.0); HGB 14.6 gm/dL (13.0-17.5); Lymphocytes % (A) 30 %; MCH 29.6 pg (25.0-35.0); MCHC 34.8 g/dL (31.0-37.0); MCV 85.1 fL (80.0-100.0); Monocytes # (A) 0.4 k/uL (0-1.0); Monocytes % (A) 6 %; Neutrophils # (A) 3.7 k/uL (1.3-7.7); Neutrophils % (A) 56 %; Platelet Count 208 k/uL (150-450); RBC 4.95 m/uL (4.30-5.90); RDW 12.3 % (11.5-15.5); WBC 6.6 k/uL (3.8-10.6)
[2020-10-13 22:33] LABS: Appearance,Urine Cloudy (Clear); Bilirubin,Urine Negative (Negative); Blood,Urine Large (Negative); Color,Urine Dark Red; Glucose,Urine (UA) Negative (Negative); Ketones,Urine Negative (Negative); Leukocyte Esterase,Urine Small (Negative); Mucus,Urine Few /hpf; Nitrite,Urine Negative (Negative); PH, Urine 7.5 (5.0-8.0); Protein,Urine 1+ (Negative); RBC,Urine >182 /hpf (0-5); Specific Gravity,Urine 1.015 (1.001-1.035); Urobilinogen,Urine <2.0 mg/dL (<2.0); WBC,Urine 81 /hpf (0-5)
[2020-10-13 22:35] LABS: ALT 22 U/L (4-49); AST 27 U/L (17-59); African American GFR (CKD) >90 (>60 ml/min/1.73 sqM); Albumin 4.4 g/dL (3.5-5.0); Alkaline Phosphatase 66 U/L (38-126); Amylase 62 U/L (30-110); Anion Gap 7 mmol/L; Blood Urea Nitrogen 25 mg/dL (9-20); Calcium 9.3 mg/dL (8.4-10.2); Carbon Dioxide 28 mmol/L (22-30); Chloride 105 mmol/L (98-107); Glucose 104 mg/dL (74-99); Lipase 77 U/L (23-300); Non-African American GFR(CKD) >90 (>60 ml/min/1.73 sqM); Sodium 140 mmol/L (137-145); Total Bilirubin 0.4 mg/dL (0.2-1.3); Total Protein 7.2 g/dL (6.3-8.2)
--- NOTE | 2020-10-13 22:51 | ED ---
General Adult HPI - General Chief complaint: Abdominal Pain Stated complaint: Blood in urine/Kidney Pain Time Seen by Provider: 10/13/20 21:24 Source: patient, RN notes reviewed Mode of arrival: ambulatory Limitations: no limitations - History of Present Illness Initial comments: 65-year-old male with a past medical history of kidney stones, stable aortic aneurysm presents to the emergency room for hematuria. Patient reports that he had lithotripsy 2 days ago given left-sided kidney stones. Patient states he had some blood-tinged urine however today started to have dark red urine. States that he passed a clot out of his urethra. States that his urine seems to be getting networker at this point. He is concerned about the bleeding. He does not take blood thinners. He does still have some flank pain. Patient has no other complaints at this time including shortness of breath, chest pain, abdominal pain, nausea or vomiting, headache, or visual changes. - Related Data Home Medications Medication Instructions Recorded Confirmed Metoprolol Succinate (ER) [Toprol 25 mg PO HS 12/10/18 10/13/20 XL] Multivit-Min/Folic/Vit K/Lycop 1 each PO HS 10/07/20 10/13/20 [Men's Multivitamin Tablet] Ubidecarenone [Co Q-10] 100 mg PO HS 10/13/20 10/13/20 Previous Rx's Medication Instructions Recorded Hydrocodone/Acetaminophen [Douglas 1 - 2 each PO Q4HR PRN #6 tab 10/11/20 5-325] Allergies Allergy/AdvReac Type Severity Reaction Status Date / Time sulfamethoxazole Allergy Rash/Hives Verified 10/13/20 22:11 [From Bactrim] trimethoprim [From Bactrim] Allergy Rash/Hives Verified 10/13/20 22:11 Review of Systems ROS Statement: Those systems with pertinent positive or pertinent negative responses have been documented in the HPI. ROS Other: All systems not noted in ROS Statement are negative. Past Medical History Additional Past Medical History / Comment(s): kidney stones , aortic aneurysm History of Any Multi-Drug Resistant Organisms: None Reported Past Surgical History: Tonsillectomy Additional Past Surgical History / Comment(s): lithotripsy x 5 times; eye sx, inguinal hernia (when pt was a baby) hand sx(ganglion cyst) foot sx Past Anesthesia/Blood Transfusion Reactions: Postoperative Nausea & Vomiting (PONV) Past Psychological History: No Psychological Hx Reported Smoking Status: Never smoker Past Alcohol Use History: Occasional Past Drug Use History: None Reported - Past Family History Mother Family Medical History: Cancer Additional Family Medical History / Comment(s): Mother in her 60s from uterine cancer. Father Additional Family Medical History / Comment(s): rheumatic fever when young. Father at age 86 from old age. Sister(s) Additional Family Medical History / Comment(s): Patient has one sister that from some type of myelodysplastic disorder Daughter(s) Family Medical History: No Reported History Additional Family Medical History / Comment(s): . General Exam Limitations: no limitations General appearance: alert, in no apparent distress Head exam: Present: atraumatic, normocephalic, normal inspection Eye exam: Present: normal appearance, PERRL, EOMI. Absent: scleral icterus, conjunctival injection, periorbital swelling ENT exam: Present: normal exam, mucous membranes moist Neck exam: Present: normal inspection, full ROM. Absent: tenderness, meningismus, lymphadenopathy Respiratory exam: Present: normal lung sounds bilaterally. Absent: respiratory distress, wheezes, rales, rhonchi, stridor Cardiovascular Exam: Present: regular rate, normal rhythm, normal heart sounds. Absent: systolic murmur, diastolic murmur, rubs, gallop, clicks GI/Abdominal exam: Present: soft, normal bowel sounds. Absent: distended, tende rness, guarding, rebound, rigid Back exam: Present: CVA tenderness (L) (minimal) Course Vital Signs 10/13/20 21:21 Temperature 98.6 F Pulse Rate 67 Respiratory 20 Rate Blood Pressure 180/86 O2 Sat by Pulse 99 Oximetry Medical Decision Making - Medical Decision Making Vitals are stable. CBC CMP unremarkable. Urinalysis does show greater than 182 red blood cells with likely reflexive white blood cells. Small leukocyte esterase without bacteria,and can evidence of infection. Patient initially had a clot in his urine prior to arrival. Since he has been here his urine has been less dark and is starting to clear up some. He isn't having any difficulty urinating. He is not passing clots. CT did show hyperdense material and a nondilated left renal pelvis and proximal ureter likely resenting blood consistent with history of hematuria. There is a cluster of numerous 2-5 mm calculi in the upper pole of the left kidney. There is at least for left renal cysts as well as a complex cyst. Patient has had these for years and has had them evaluated. Dr. Morales spoke with Dr. Samuel who did review patient's labs. At this time is patient is urinating and not having difficulty he feels he can follow up outpatient and this is likely a complication of the lithotripsy. He will follow up outpatient. He does have an appointment on the . Strict return parameters were given. Patient also requesting a KUB as he is almost at this outpatient. This was ordered for him. - Lab Data Result diagrams: 10/13/20 21:53 10/13/20 21:53 Lab Results 10/13/20 10/13/20 10/13/20 Range/Units 21:53 21:53 21:53 WBC 6.6 (3.8-10.6) k/uL RBC 4.95 (4.30-5.90) m/uL Hgb 14.6 (13.0-17.5) gm/dL Hct 42.1 (39.0-53.0) % MCV 85.1 (80.0-100.0) fL MCH 29.6 (25.0-35.0) pg MCHC 34.8 (31.0-37.0) g/dL RDW 12.3 (11.5-15.5) % Plt Count 208 (150-450) k/uL MPV 8.0 Neutrophils % 56 % Lymphocytes % 30 % Monocytes % 6 % Eosinophils % 6 % Basophils % 1 % Neutrophils # 3.7 (1.3-7.7) k/uL Lymphocytes # 2.0 (1.0-4.8) k/uL Monocytes # 0.4 (0-1.0) k/uL Eosinophils # 0.4 (0-0.7) k/uL Basophils # 0.1 (0-0.2) k/uL Sodium 140 (137-145) mmol/L Potassium 4.0 (3.5-5.1) mmol/L Chloride 105 (98-107) mmol/L Carbon Dioxide 28 (22-30) mmol/L Anion Gap 7 mmol/L BUN 25 H (9-20) mg/dL Creatinine 0.89 (0.66-1.25) mg/dL Est GFR (CKD-EPI)AfAm >90 (>60 ml/min/1.73 sqM) Est GFR (CKD-EPI)NonAf >90 (>60 ml/min/1.73 sqM) Glucose 104 H (74-99) mg/dL Calcium 9.3 (8.4-10.2) mg/dL Total Bilirubin 0.4 (0.2-1.3) mg/dL AST 27 (17-59) U/L ALT 22 (4-49) U/L Alkaline Phosphatase 66 (38-126) U/L Total Protein 7.2 (6.3-8.2) g/dL Albumin 4.4 (3.5-5.0) g/dL Amylase 62 (30-110) U/L Lipase 77 (23-300) U/L Urine Color Dark Red Urine Appearance Cloudy (Clear) Urine pH 7.5 (5.0-8.0) Ur Specific Holt 1.015 (1.001-1.035) Urine Protein 1+ H (Negative) Urine Glucose (UA) Negative (Negative) Urine Ketones Negative (Negative) Urine Blood Large H (Negative) Urine Nitrite Negative (Negative) Urine Bilirubin Negative (Negative) Urine Urobilinogen <2.0 (<2.0) mg/dL Ur Leukocyte Esterase Small H (Negative) Urine RBC >182 H (0-5) /hpf Urine WBC 81 H (0-5) /hpf Urine Mucus Few H (None) /hpf Disposition Clinical Impression: Hematuria, Hx of lithotripsy Disposition: HOME SELF-CARE Condition: Good Instructions (If sedation given, give patient instructions): Hematuria (ED) Additional Instructions: Please follow up at your appointment on Sunday. However if you have worsening bleeding or are unable to urinate you need to return to the emergency room. Is patient prescribed a controlled substance at d/c from ED?: No Referrals: Epi Velazquez MD [Primary Care Provider] - 1-2 days Son Samuel MD [STAFF PHYSICIAN] - 1-2 days Time of Disposition: 23:51
--- NOTE | 2020-10-13 23:45 | CT ---
EXAM: CT Abdomen and Pelvis Without Intravenous Contrast CLINICAL HISTORY: ITS.REASON CT Reason: bleeding s/p lithotripsy TECHNIQUE: Axial computed tomography images of the abdomen and pelvis without intravenous contrast. CTDI is 10.77 mGy and DLP is 638.5 mGy-cm. This CT exam was performed using one or more of the following dose reduction techniques: automated exposure control, adjustment of the mA and/or kV according to patient size, and/or use of iterative reconstruction technique. COMPARISON: No relevant prior studies available. FINDINGS: Lung bases: Unremarkable. No mass. No consolidation. ABDOMEN: Liver: Unremarkable. Gallbladder and bile ducts: Unremarkable. No calcified stones. No ductal dilation. Pancreas: Unremarkable. No ductal dilation. Spleen: Unremarkable. No splenomegaly. Adrenals: Unremarkable. No mass. Kidneys and ureters: There is hyperdense material in a nondilated left renal pelvis and proximal ureter likely representing blood consistent with history of hematuria. Cluster of numerous 2-5 mm calculi in the upper pole of the left kidney as well as a 3 mm calculus in the renal pelvis. No hydronephrosis or ureterolithiasis is identified. There are at least 4 left renal cysts measuring up to 6.9 cm in diameter. There is hyperdense material within the left upper pole renal cyst dependently indicating a complex cyst. 4 right renal cyst measuring up to 4 cm in diameter. No follow-up is recommended. Stomach and bowel: Unremarkable. No obstruction. No mucosal thickening. PELVIS: Appendix: No findings to suggest acute appendicitis. Bladder: Unremarkable. No stones. Reproductive: Unremarkable as visualized. ABDOMEN and PELVIS: Intraperitoneal space: Unremarkable. No free air. No significant fluid collection. Bones/joints: Mild degenerative changes in the lower lumbar spine. No fracture or bone lesion. No dislocation. Soft tissues: Unremarkable. Vasculature: Unremarkable. No abdominal aortic aneurysm. Lymph nodes: Unremarkable. No enlarged lymph nodes. IMPRESSION: 1. There is hyperdense material in a nondilated left renal pelvis and proximal ureter likely representing blood consistent with history of hematuria. 2. Cluster of numerous 2-5 mm calculi in the upper pole of the left kidney as well as a 3 mm calculus in the renal pelvis. No hydronephrosis or ureterolithiasis is identified. 3. There are at least 4 left renal cysts measuring up to 6.9 cm in diameter. There is hyperdense material within the left upper pole renal cyst dependently indicating a complex cyst. Consider follow-up post contrast examination for further characterization if clinically indicated.
--- NOTE | 2020-10-14 00:24 | XR ---
EXAM: XR Abdomen, 1 View CLINICAL HISTORY: ITS.REASON XR Reason: urologic purposes TECHNIQUE: Frontal supine view of the abdomen/pelvis. COMPARISON: Abdominal radiograph on 10/11/2020 FINDINGS: Intraperitoneal space: No free air. Gastrointestinal tract: Nonobstructive bowel gas pattern. Moderate to large amount of stool may represent constipation. Organs: Faint cluster of calcification is again seen in the region of the left kidney. Bones/joints: Unremarkable. IMPRESSION: 1. Nonobstructive bowel gas pattern. Moderate to large amount of stool may represent constipation. 2. Faint cluster of calcification is again seen in the region of the left kidney.
== END 2020-10-14 00:12 | disposition home or self-care (01) ==
LOC: EC 21:11
DX: R31.9 Hematuria, unspecified (principal); N20.0 Calculus of kidney; N28.1 Cyst of kidney, acquired; N39.0 Urinary tract infection, site not specified; Z79.899 Other long term (current) drug therapy; Z88.2 Allergy status to sulfonamides; Z88.1 Allergy status to other antibiotic agents; Z87.442 Personal history of urinary calculi
CPT/HCPCS: 36415; 74018; 74176; 80053; 81001; 82150; 83690; 85025; 86850; 86900; 86901; 87086; 96360; 99284

== ENCOUNTER 2021-03-02 12:46 | Day surgery (SDC) | payer OTHER ==
[2021-02-25 12:04] VITALS: BMI 27.9
[~2021-03-02 12:46] MED LIST changes: +LIDOCAINE 1% (10MG/ML) FOR IV START INTRADERMA PRN; +MIDAZOLAM 2 MG/2 ML VIAL IV PRN; +Pre Op ABX Message 1 EACH MISC MISCELLANE ONE
[2021-03-02 13:15] VITALS: RESP 18; TEMP 97.1
[2021-03-02] MEDS ORDERED: GLYCOPYRROLATE 0.2 MG/ML 2 ML VIAL ONE (13:46)
[2021-03-02] MEDS ORDERED: fentaNYL (PF) 50 MCG/ML 2 ML AMP ONE (13:46)
[2021-03-02] MEDS ORDERED: ePHEDrine SULFATE/0.9% NACL/PF 50 MG/5 ML SYRINGE IV ONE (13:46)
[2021-03-02] MEDS ORDERED: MIDAZOLAM 2 MG/2 ML VIAL ONE (13:46)
[2021-03-02] MEDS ORDERED: PROPOFOL 10 MG/ML 20 ML VIAL IV ONE (13:46)
[2021-03-02] MEDS ORDERED: BUPIVACAINE (PF) 0.25% 30 ML VIAL SQ ONE (13:53)
--- NOTE | 2021-03-02 15:04 | P.OP ---
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 Postoperative Diagnosis: Same Procedure(s) Performed: Simple bunionectomy left foot and simple tailor bunionectomy left foot Anesthesia: MAC Surgeon: Epi Correa Indications for Procedure: Pain with ambulation and use of enclosed shoe gear Operative Findings: Unremarkable Description of Procedure: On the date of surgery the patient was taken to the operating room in good condition placed on the operating table supine position where an IV was started and adequate IV anesthetic agents were utilized anesthesia was then further supplemented with approximately 18 mL of 0.25% plain Marcaine given in Garza type blocks to the first and fifth ray complex. The patient's left foot was then prepped and draped in the usual aseptic manner. The patient's left foot was elevated and exsanguinated of blood utilizing Esmarch bandage and after approximately 1 minutes. A time the ankle tourniquet to the patient's left ankle was inflated to approximately 275 mmHg At this time attention was directed to the dorsal aspect of the first metatarsal phalangeal joint where a 6 cm dorsal linear incision was made the incision was deepened via sharp dissection down through the level of subcutaneous tissue layers all neurovascular structures encountered were identified isolated and were retracted and any bleeding vessels were clamped electrocauterized. Throughout the surgical procedure copious amounts sterile saline solution was us ed to irrigate the surgical site. Dissection was then carried deep down to level Periosteal Structures Overlying the First Metatarsal Phalangeal Joint These Were Incised in Line with the Original Skin Incision and Underscored and Retracted from the Underlying Bone Hyperostosis Present on the Medial and Dorsal Aspect of the First Metatarsal Head Was Then Resected Flush in Line with the Shaft of the First Metatarsal and Removed in Total from the Surgical Site. Osteal Structures Were Then Coaptated and Maintained Utilizing 2-0 Vicryl Simple Opted Suture the Teeniest Tissue Was Closed Utilizing 3-0 Vicryl Simple interupted Suture and the skin was then closed utilizing 4-0 nylon new was lock suture At this time attention was directed to the dorsal aspect of the fifth metatarsal phalangeal joint where an approximately 4 cm dorsolinear incision was made the incision was deepened via sharp dissection down through the level of the subcutaneous tissue layers all neurovascular structures encountered were identified isolated and were retracted and any bleeding vessels were clamped electrocauterized. Dissection was then carried deep down to level Periosteal Structures Overlying the Fifth Metatarsal Phalangeal Joint These Were Incised in Line with the Original Skin Incision and Underscored and Retracted from the Underlying Bone Hyperostosis Present on the Lateral Side of the Fifth Metatarsal Head Was Then Resected Flush in Line with the Shaft of the Fifth Metatarsal and Removed in Total from the Surgical Site. Parosteal Structures Then Coaptated and Maintained Utilizing 3-0 Vicryl Simple Interrupted Suture As Well As the Subcutaneous Tissue Layers the Skin Was Then Closed Utilizing 4-0 Nylon Continuous Lock Suture line Adaptic was applied to the surgical sites with X left and 4 inch Chantal as well as four-inch Adaptic and the patient tolerated the surgery and anesthesia well was taken recovery room in good postoperative condition
[2021-03-02] MEDS ORDERED: HYDROcodone/APAP 5-325MG 1 EACH TAB ONE (15:54)
[2021-03-02] MEDS ORDERED: HYDROcodone/APAP 5-325MG 1 EACH TAB PO ONE (15:56)
[2021-03-02 16:03] VITALS: BP 168/67; PULSE 67
== END 2021-03-02 16:43 | disposition home or self-care (01) ==
LOC: OR 12:46
PROVIDERS: ATTEND Podiatrist Foot & Ankle Surgery
DX: M20.12 Hallux valgus (acquired), left foot (principal); M21.622 Bunionette of left foot; I71.9 Aortic aneurysm of unspecified site, without rupture; Z88.2 Allergy status to sulfonamides; I10 Essential (primary) hypertension; Z79.899 Other long term (current) drug therapy; Z98.890 Other specified postprocedural states
CPT/HCPCS: 88304; 88311; 28292; 28110; J2250; J1100; J0690; J2405; J3010; J2704

== ENCOUNTER → 2021-08-26 | Outpatient (CLI) | payer OTHER ==
--- NOTE | 2021-08-26 17:11 | XR ---
EXAMINATION TYPE: XR KUB DATE OF EXAM: 08/26/2021 COMPARISON: 10/14/2020 HISTORY: Renal calculus TECHNIQUE: AP abdomen FINDINGS: Nonspecific bowel gas is present. Clustered small calcifications over the mid to upper pole left kidney. A right ureteral 0.4 cm calcification overlying the right sacral ala may be present. Co rrelate with symptoms. No organomegaly is evident. Psoas margins are normal. IMPRESSION: 1. 0.4 cm calcification overlying the right sacrum could be a ureteral stone right 2. Multiple small renal stones mid left kidney
== END | disposition home or self-care (01) ==
LOC: RADXRMAIN 11:37
PROVIDERS: ATTEND Urology
DX: N20.0 Calculus of kidney (principal)
CPT/HCPCS: 74018

== ENCOUNTER → 2021-09-21 | Outpatient (CLI) | payer OTHER ==
--- NOTE | 2021-09-22 06:54 | CT ---
EXAMINATION TYPE: CT abdomen pelvis wo con DATE OF EXAM: 09/21/2021 HISTORY: Microhematuria, h/o kidney stones CT DLP: 483.9 mGycm. Automated Exposure Control for Dose Reduction was Utilized. TECHNIQUE: CT scan of the abdomen and pelvis is performed without oral or IV contrast. COMPARISON: CT abdomen and pelvis October 13, 2020 FINDINGS: Within the limitations of a non-contrast study, the following observations are made. LUNG BASES: No significant abnormality is appreciated. LIVER/GB: No significant abnormality is appreciated. PANCREAS: No significant abnormality is seen. SPLEEN: No significant abnormality is seen. ADRENALS: No significant abnormality is seen. KIDNEYS: There are persistent scattered thin-walled cysts of varying size and shape scattered through out both kidneys. Cysts are larger in the left kidney. No right-sided nephrolithiasis or hydronephros is. Persistent multiple left renal calculi greatest upper to midpole level estimated to measure 15 st ones measuring millimeters in size. No hydronephrosis or obstructing left ureteral calculi. No intral uminal calculi in the bladder. BOWEL: Suboptimal evaluation without enteric contrast. No suspicious small or large bowel dilatation. GENITAL ORGANS: No gross abnormality seen. LYMPH NODES: No greater than 1cm abdominal or pelvic lymph nodes are appreciated. OSSEOUS STRUCTURES: No significant abnormality is seen. OTHER: No significant additional abnormality is seen. IMPRESSION: Persistent multiple nonobstructing left renal calculi. No hydronephrosis or obstructing u reteral calculi seen bilaterally on current study.
== END | disposition home or self-care (01) ==
LOC: RADCTMAIN 18:06
PROVIDERS: ATTEND Urology
DX: N20.0 Calculus of kidney (principal)
CPT/HCPCS: 74176

== ENCOUNTER → 2022-04-12 | Outpatient (CLI) | payer OTHER ==
--- NOTE | 2022-04-12 15:28 | XR ---
EXAMINATION TYPE: XR KUB DATE OF EXAM: 04/12/2022 HISTORY: Pain Comparison: 08/26/2021 Single KUB is submitted for interpretation. Findings: Right renal calculi: None Visualized. Right ureteral calculi: None Visualized. Left renal calculi: Cluster 5 calculi mid pole left kidney measuring up to 5 mm. Left ureteral calculi: None Visualized. Pelvic calcifications: None Visualized. Bowel gas pattern is unremarkable. No free air. No mass effects. IMPRESSION: 1. Cluster 5 calculi mid pole left kidney measuring up to 5 mm.
== END | disposition home or self-care (01) ==
LOC: RADXRMAIN 15:10
PROVIDERS: ATTEND Urology
DX: N20.0 Calculus of kidney (principal)
CPT/HCPCS: 74018

== ENCOUNTER 2022-09-20 11:33 | Day surgery (SDC) | payer OTHER ==
[2022-09-15 11:49] VITALS: BMI 27.9
[~2022-09-20 11:33] MED LIST changes: -DEXAMETHASONE SOD PHOSPHATE 4 MG/ML 1 ML VIAL IV ONE; -HYDROmorphone 0.5 MG/0.5 ML SYRINGE IVP PRN; -LACTATED RINGERS 1,000 ML IV SCH; -LIDOCAINE 1% (10MG/ML) FOR IV START INTRADERMA PRN; -MIDAZOLAM 2 MG/2 ML VIAL IV PRN; -ONDANSETRON 4 MG/2 ML VIAL IVP ONE
[2022-09-20] MEDS ORDERED: LACTATED RINGERS 1,000 ML IV SCH (11:43)
[2022-09-20] MEDS ORDERED: ONDANSETRON 4 MG/2 ML VIAL IVP ONE (11:43)
[2022-09-20] MEDS ORDERED: DEXAMETHASONE SOD PHOSPHATE 4 MG/ML 1 ML VIAL IV ONE (11:43)
[2022-09-20] MEDS ORDERED: LIDOCAINE 1% (10MG/ML) FOR IV START INTRADERMA PRN (11:43)
[2022-09-20] MEDS ORDERED: HYDROmorphone 0.5 MG/0.5 ML SYRINGE IVP PRN (11:43)
[2022-09-20 12:00] VITALS: TEMP 96.9
[2022-09-20] MEDS ORDERED: LACTATED RINGERS 1,000 ML IV ONE (12:10)
[2022-09-20] MEDS ORDERED: BUPIVACAINE (PF) 0.25% 30 ML VIAL INTRAARTIC ONE ×2 (12:14→13:14)
[2022-09-20] MEDS ORDERED: fentaNYL (PF) 50 MCG/ML 2 ML AMP ONE (12:51)
[2022-09-20] MEDS ORDERED: KETAMINE 10 MG/ML 20 ML VIAL ONE (12:51)
[2022-09-20] MEDS ORDERED: PROPOFOL 10 MG/ML 20 ML VIAL IV ONE (12:51)
[2022-09-20] MEDS ORDERED: MIDAZOLAM 2 MG/2 ML VIAL ONE (12:51)
[2022-09-20] MEDS ORDERED: SODIUM CHLORIDE 0.9% 100 ML with ceFAZolin 2,000 MG IV ONE ×2 (12:56)
--- NOTE | 2022-09-20 13:52 | P.OP ---
Date of Procedure: 09/20/22 Preoperative Diagnosis: Tailor bunion deformity left foot Postoperative Diagnosis: Same Procedure(s) Performed: Metatarsal osteotomy to reduce intermetatarsal angle between the fourth and fifth metatarsals left foot Surgeon: Epi Correa Description of Procedure: On the date of surgery the patient was taken to the operating room in good condition on the operating table in a supine position where an IV was started and adequate IV anesthetic agents were utilized anesthesia was then further supplemented with approximately 12 mL of 0.25% plain Marcaine given in a paez type block The patients left foot was then prepped and draped in usual aseptic manner and over heavy web roll padding an ankle tourniquet was placed above the malleoli of the patient's left ankle foot and ankle were then elevated and exsanguinated of blood utilizing an Esmarch bandage and the ankle tourniquet was inflated to approximately 250 mmHg Inch was directed to the dorsal aspect of the patient's bunion deformity where over the distal aspect of the fifth metatarsal and the metatarsal phalangeal joint an incision was made was approximately 2 cm in length. The incision was then deepened via sharp dissection down through the level of subcutaneous tissue layers all neurovascular structures encountered were identified isolated and were retracted and any bleeding vessels were clamped electrocauterized dissection was then carried deep down to level of the distal one third of the fifth metatarsal or Periosteal Structures Were Incised Incised in Line with the Original Skin Incision and Underscored and Retracted from the Underlying Bone Utilizing Oscillating Bone Saw a Wedge Osteotomy Was Performed at the distal Metaphysis. Out the surgical procedure copious amounts sterile saline solution was used to irrigate the surgical site 0.045 K wire the osteotomy was fixated the osteotomy itself was placed in a dorsal to plantar direction the base of the os that the apex of the osteotomy was directed proximal lateral the base of the osteotomy was distal medial the encompass wedge of bone measured approximately 2 mm in width at the base. Upon completion of the osteotomy adequate reduction of the intermetatarsal angle was noted to be present. Parosteal Structures Then Coaptated and Maintained Utilizing 3-0 Vicryl Simple Interrupted Suture As Well As Subcutaneous Tissues the Skin Was Then Closed Utilizing 4-0 Nylon Simple Interrupted Suture Adaptic Kerlix Fluffs Four-Inch Conformer 4 Inch Coban Was Used To Form a Compression Dressing and the Ankle Tourniquet to the Patient's Left Ankle Was Deflated Adequate Hemostatic Return Was Seen in All Digits Left Foot Toe. The Patient Tolerated the Surgery and Anesthesia Well Was Taken to the Recovery Room in Good Postoperative Condition
[2022-09-20 14:20] VITALS: RESP 16
[2022-09-20 14:36] VITALS: BP 156/89; PULSE 64
== END 2022-09-20 14:56 | disposition home or self-care (01) ==
LOC: OR 11:33
PROVIDERS: ATTEND Podiatrist Foot & Ankle Surgery
DX: M21.622 Bunionette of left foot (principal); I10 Essential (primary) hypertension; G43.909 Migraine, unspecified, not intractable, without status migrainosus; K21.9 Gastro-esophageal reflux disease without esophagitis; Z79.891 Long term (current) use of opiate analgesic; Z98.890 Other specified postprocedural states; Z88.1 Allergy status to other antibiotic agents; Z79.899 Other long term (current) drug therapy
CPT/HCPCS: 28308; C1713; J2250; J1100; J2405; J0690; J3010; J2704

== ENCOUNTER 2022-10-02 05:01 | Emergency (ER) | payer OTHER ==
[2022-10-02 05:12] VITALS: RESP 18
[2022-10-02] MEDS ORDERED: diphenhydrAMINE 50 MG/ML 1 ML VIAL IVP STA (05:40)
[2022-10-02] MEDS ORDERED: FAMOTIDINE 20 MG/2 ML VIAL IV STA (05:40)
[2022-10-02] MEDS ORDERED: methylPREDNISolone SOD SUCCI 125 MG/2 ML VIAL IV STA (05:40)
[2022-10-02] MEDS ORDERED: SODIUM CHLORIDE 0.9% 1,000 ML IV ONE (05:41)
--- NOTE | 2022-10-02 05:41 | ED ---
Allergic Reaction HPI - General Chief complaint: Allergic Reaction Stated complaint: allergic reaction Time Seen by Provider: 10/02/22 05:15 Source: patient Mode of arrival: ambulatory Limitations: no limitations - History of Present Illness Initial Comments: 67-year-old male past medical history of hypertension presents emergency department with ALLERGIC reaction. He had a nuclear stress test on by Dr. Dacosta. States that when the medication was injected into his IV which was located in his right before meals, he had sudden onset of rash. His blood pressure dropped. He was forced to receive an ALLERGY cocktail. The rash continue to extend over the patient's torso. He was taking Benadryl on Sunday however subsequently have stopped it. He woke this morning and was having increased itching. He also felt like he had to keep clearing his throat. He denies exposure to any other new products, foods, environmental exposures. Has had this reaction previously to Bactrim. Denies fevers. No nausea or vomiting. No wheezing or shortness of breath. No other alleviating, precipitating or modifying factors - Related Data Home Medications Medication Instructions Recorded Confirmed Metoprolol Succinate (ER) [Toprol 25 mg PO QAM 12/10/18 09/15/22 XL] Multivit-Min/Folic/Vit K/Lycop 1 each PO Q2D 10/07/20 09/15/22 [Men's Multivitamin Tablet] Chlorthalidone [Hygroton] 25 mg PO DAILY 09/15/22 09/15/22 Losartan [Cozaar] 25 mg PO HS 09/15/22 09/15/22 Previous Rx's Medication Instructions Recorded EPINEPHrine (Auto Inject) [Epipen] 0.3 mg IM ONCE PRN #2 each 10/02/22 Famotidine [Pepcid] 20 mg PO BID #28 tablet 10/02/22 predniSONE [Deltasone] 20 mg PO BID #10 tab 10/02/22 Allergies Allergy/AdvReac Type Severity Reaction Status Date / Time sulfamethoxazole Allergy Rash/Hives Verified 10/02/22 05:12 [From Bactrim] trimethoprim [From Bactrim] Allergy Rash/Hives Verified 10/02/22 05:12 Review of Systems ROS Statement: Those systems with pertinent positive or pertinent negative responses have been documented in the HPI. ROS Other: All systems not noted in ROS Statement are negative. Past Medical History Past Medical History: Hypertension Additional Past Medical History / Comment(s): kidney stones, ascending aortic aneurysm(Dr Olesya winchester), hx migraines, History of Any Multi-Drug Resistant Organisms: None Reported Past Surgical History: Hernia Repair, Orthopedic Surgery, Tonsillectomy Additional Past Surgical History / Comment(s): lithotripsy x 5 times; macular pucker surgery rt eye, inguinal hernia, rt hand ganglion cyst, rt foot toe /pinned, left foot surgery,cataract rt eye, nasal surgery Past Anesthesia/Blood Transfusion Reactions: Motion Sickness, Postoperative Nausea & Vomiting (PONV) Past Psychological History: No Psychological Hx Reported Smoking Status: Never smoker - Past Family History Mother Family Medical History: Cancer Additional Family Medical History / Comment(s): . Father Additional Family Medical History / Comment(s): rheumatic fever when young. Father at age 86 from old age. Sister(s) Additional Family Medical History / Comment(s): Patient has one sister that from some type of myelodysplastic disorder Daughter(s) Family Medical History: No Reported History Additional Family Medical History / Comment(s): . General Exam Limitations: no limitations General appearance: alert, in no apparent distress Head exam: Present: atraumatic, normocephalic, normal inspection Eye exam: Present: normal appearance, PERRL, EOMI. Absent: scleral icterus, conjunctival injection, periorbital swelling ENT exam: Present: normal exam, mucous membranes moist Neck exam: Present: normal inspection. Absent: tenderness, meningismus, lymphadenopathy Respiratory exam: Present: normal lung sounds bilaterally. Absent: respiratory distress, wheezes, rales, rhonchi, stridor Cardiovascular Exam: Present: regular rate, normal rhythm, normal heart sounds. Absent: systolic murmur, diastolic murmur, rubs, gallop, clicks GI/Abdominal exam: Present: soft, normal bowel sounds. Absent: distended, tenderness, guarding, rebound, rigid Extremities exam: Present: normal inspection, full ROM, normal capillary refill. Absent: tenderness, pedal edema, joint swelling, calf tenderness Back exam: Present: normal inspection Neurological exam: Present: alert, oriented X3, CN II-XII intact Psychiatric exam: Present: normal affect, normal mood Skin exam: Present: warm, dry, rash (torso, bilateral antecuital fossa, mid thoracic back - resembles hives. no vesicular lesions) Course Vital Signs 10/02/22 10/02/22 05:10 07:30 Temperature 98.0 F 97.4 F L Pulse Rate 65 69 Respiratory 18 18 Rate Blood Pressure 143/98 136/94 O2 Sat by Pulse 97 97 Oximetry Medical Decision Making - Medical Decision Making Upon arrival patient was placed in room 28. A thorough history and physical exam was performed. IV access is established. Patient was given 125 of Solu- Medrol, 50 mg of Benadryl, 20 mg of Pepcid and a liter bolus of normal saline. Patient is reevaluated and reports to improvement in his symptoms. Patient was placed on steroids, Pepcid and Benadryl. He is to follow-up with his doctor in 2-4 days. If the symptoms persist the patient needs further evaluation by an ethylene oxide panelboard operator. Patient was agreeable to this. Given written and verbal discharge instructions and discharged home in stable condition Disposition Clinical Impression: Allergic reaction Disposition: HOME SELF-CARE Condition: Stable Instructions (If sedation given, give patient instructions): General Allergic Reaction (ED) Additional Instructions: Please start taking the steroids tomorrow. You may take a second dose of Pepcid today. Take a claritin every 24 hours or benadryl every 6 hours. Administer the EpiPen should you have any shortness of breath. Return for any new or worsening symptoms. If your symptoms persist, you need to see an ethylene oxide panelboard operator Prescriptions: predniSONE [Deltasone] 20 mg PO BID #10 tab EPINEPHrine (Auto Inject) [Epipen] 0.3 mg IM ONCE PRN #2 each PRN Reason: Anaphylaxis Famotidine [Pepcid] 20 mg PO BID #28 tablet Is patient prescribed a controlled substance at d/c from ED?: No Referrals: Zheng Velazquez MD [STAFF PHYSICIAN] - 1-2 days Time of Disposition: 07:04
[2022-10-02] MEDS ORDERED: ONDANSETRON 4 MG/2 ML VIAL IVP STA (06:17)
[2022-10-02 07:32] VITALS: BP 136/94; PULSE 69; TEMP 97.4
== END 2022-10-02 07:34 | disposition home or self-care (01) ==
LOC: EC 05:01
DX: T78.40XA Allergy, unspecified, initial encounter (principal); I10 Essential (primary) hypertension; Z88.1 Allergy status to other antibiotic agents; Z88.2 Allergy status to sulfonamides
CPT/HCPCS: 99283; 96374; 96375 ×3; 96361; J1200; J2930; J2405

== ENCOUNTER 2023-01-05 09:56 | Inpatient (IN) | payer OTHER, MEDICARE ==
[2023-01-05] MEDS ORDERED: SODIUM CHLORIDE 0.9% 1,000 ML IV STA (10:15)
[2023-01-05] MEDS ORDERED: KETOROLAC 15 MG/ML 1 ML VIAL IVP STA (10:31)
[2023-01-05 10:48] LABS: Basophils % (A) 0 %; Eosinophils # (A) 0.3 k/uL (0-0.7); Eosinophils % (A) 4 %; HCT 41.3 % (39.0-53.0); HGB 14.6 gm/dL (13.0-17.5); Lymphocytes # (A) 1.2 k/uL (1.0-4.8); Lymphocytes % (A) 14 %; MCH 30.5 pg (25.0-35.0); MCHC 35.4 g/dL (31.0-37.0); MCV 86.2 fL (80.0-100.0); Mean Platelet Volume 8.5; Monocytes # (A) 0.6 k/uL (0-1.0); Monocytes % (A) 6 %; Neutrophils # (A) 6.5 k/uL (1.3-7.7); Neutrophils % (A) 74 %; Platelet Count 198 k/uL (150-450); RDW 12.6 % (11.5-15.5); WBC 8.8 k/uL (3.8-10.6)
[2023-01-05 10:52] LABS: Appearance,Urine Clear (Clear); Bilirubin,Urine Negative (Negative); Blood,Urine Small (Negative); Color,Urine Yellow; Glucose,Urine (UA) Negative (Negative); Ketones,Urine 1+ (Negative); Leukocyte Esterase,Urine Negative (Negative); Mucus,Urine Rare /hpf; Nitrite,Urine Negative (Negative); PH, Urine 5.5 (5.0-8.0); Protein,Urine Trace (Negative); RBC,Urine 2 /hpf (0-5); Specific Gravity,Urine 1.017 (1.001-1.035); Squamous Epithelial Cell,Urine <1 /hpf (0-4); Urobilinogen,Urine <2.0 mg/dL (<2.0); WBC,Urine 3 /hpf (0-5)
[2023-01-05 10:58] LABS: Albumin 4.3 g/dL (3.5-5.0); Potassium 3.7 mmol/L (3.5-5.1); Total Protein 7.1 g/dL (6.3-8.2)
--- NOTE | 2023-01-05 11:11 | CT ---
EXAMINATION TYPE: CT abdomen pelvis wo con DATE OF EXAM: 01/05/2023 COMPARISON: HISTORY: Left flank pain CT DLP: 631.1 mGycm Automated exposure control for dose reduction was used. TECHNIQUE: Helical acquisition of images was performed from the lung bases through the pelvis. FINDINGS: LUNG BASES: The heart is enlarged. There is a small pericardial effusion and mild coronary artery liseth cification. Subsegmental linear changes at the lung base most typical of atelectasis. LIVER/GB: There is a tiny hypodensity near the dome of the liver measuring 2 mm. No gallstones. PANCREAS: No significant abnormality is seen. SPLEEN: No significant abnormality is seen. ADRENALS: No significant abnormality is seen. KIDNEYS: There are numerous hypodensities seen within bilateral kidney to appear well circumscribed. Some are too small to characterize. The largest measures 6.9 cm and 5 Hounsfield units. Most likely e tiology are bilateral simple Bosniak classification 1 renal cysts. There are approximately 8 left renal calculi all measuring less than 5 mm with moderate left hydronep hrosis secondary to a mid ureteral calcification best noted on coronal image 45 series 202 measuring a diameter of 5 mm. Right kidney demonstrates no hydronephrosis. No nephrolithiasis on the right.. URINARY BLADDER: No significant abnormality is seen. ADENOPATHY: None visualized. OSSEOUS STRUCTURES: Hypertrophic and degenerative changes in the spine. BOWEL: Bowel gas pattern nonspecific and no obstruction. There is evidence of a small hiatal hernia. OTHER: Prominent venous structures in the left splenic region represent early varices correlate clini jie. IMPRESSION: 1. MODERATE LEFT-SIDED HYDRONEPHROSIS SECONDARY TO OBSTRUCTING MID LEFT URETERAL CALCULUS MEASURING D IAMETER 5 MM. THERE ARE NUMEROUS LEFT-SIDED RENAL CALCULI MEASURING LESS THAN 5 MM. 2. BILATERAL HYPODENSE RENAL MASSES WHICH ARE MORE APPROPRIATELY EVALUATE WITH PRE AND POSTCONTRAST C T BUT APPEAR TO REPRESENT SIMPLE BOSNIAK CLASSIFICATION 1 BENIGN CYSTS STABLE FROM PRIOR EXAM. 3. CARDIOMEGALY WITH SMALL PERICARDIAL EFFUSION. 4. TINY HYPODENSITY MEASURING 2 MM STONE IN THE LIVER TOO SMALL TO CHARACTERIZE BUT STATISTICALLY LIK GILBERTO BENIGN. RECOMMEND CORRELATION WITH LIVER FUNCTION STUDIES IS THERE ARE PROMINENT VENOUS STRUCTURE S IN THE LEFT HILUM. ALTHOUGH THIS COULD BE CONGENITAL CORRELATE WITH LIVER STUDIES TO ASSESS FOR ISIDRA ER DISEASE\VARICES.
[2023-01-05] MEDS ORDERED: NALOXONE 0.4 MG/ML 1 ML VIAL IV PRN (12:13)
[2023-01-05] MEDS ORDERED: KETOROLAC 15 MG/ML 1 ML VIAL IVP PRN (12:24)
[2023-01-05] MEDS ORDERED: ONDANSETRON 4 MG/2 ML VIAL IVP PRN (12:25)
[2023-01-05] MEDS ORDERED: HYDROmorphone 0.5 MG/0.5 ML SYRINGE IVP PRN (12:36)
[2023-01-05] MEDS: SODIUM CHLORIDE 0.9% 1,000 ML IV SCH ×2 (13:08→18:48)
--- NOTE | 2023-01-05 14:42 | P.GSHP ---
History of Present Illness H&P Date: 01/05/23 Chief Complaint: Left ureteral stone This is a 67-year-old male that presents to the hospital with left flank pain secondary to a 5 mm left-sided obstructive ureteral stone. He was seen in the ER approximately 4 days ago with similar symptoms. He indicates the pain associated with nausea, vomiting and gross hematuria. Denies any dysuria, fevers or chills. Does have history of recurrent kidney stones and follows up with Dr. Chase for management of his stones. He has required surgical intervention in the past, but has also passed stones spontaneously. On evaluation in the ED he continues to have pain. Additionally's creatinine is elevated at 1.7 from a baseline of 0.8 - Constitutional Constitutional: Denies chills, Denies fever - Cardiovascular Cardiovascular: Denies chest pain, Denies shortness of breath - Respiratory Respiratory: Denies cough, Denies 7 - Gastrointestinal Gastrointestinal: Reports abdominal pain, Reports nausea, Reports vomiting - Genitourinary (Female) Genitourinary: Reports flank pain, Reports hematuria, Denies dysuria - Genitourinary (Male) Genitourinary: Denies dysuria, Denies hematuria - Integumentary Integumentary: Denies pruritus, Denies rash - Neurological Neurological: Denies numbness, Denies weakness Past Medical History Past Medical History: Hypertension Additional Past Medical History / Comment(s): hx kidney stones, ascending aortic aneurysm(Dr Olesya winchester), hx migraines, stress test results - questionable. recent chemical stress test caused pt to have a rash from injection site up his trunk.was seen in ER. Arthritis in fingers History of Any Multi-Drug Resistant Organisms: None Reported Past Surgical History: Hernia Repair, Orthopedic Surgery, Tonsillectomy Additional Past Surgical History / Comment(s): lithotripsy x 5 times; macular pucker surgery rt eye, inguinal hernia, rt hand ganglion cyst, rt foot toe /pinned, left foot surgery,cataract rt eye, nasal surgery, heart cath Past Anesthesia/Blood Transfusion Reactions: Motion Sickness, Postoperative Nausea & Vomiting (PONV) Additional Past Anesthesia/Blood Transfusion Reaction / Comment(s): hx nausea after lithotripsy Past Psychological History: No Psychological Hx Reported Smoking Status: Never smoker Past Alcohol Use History: Rare Past Drug Use History: None Reported - Past Family History Mother Family Medical History: Cancer Additional Family Medical History / Comment(s): . Father Additional Family Medical History / Comment(s): rheumatic fever when young. Father at age 86 from old age. Sister(s) Additional Family Medical History / Comment(s): Patient has one sister that from some type of myelodysplastic disorder Daughter(s) Family Medical History: No Reported History Additional Family Medical History / Comment(s): . Medications and Allergies Home Medications Medication Instructions Recorded Confirmed Type Metoprolol Succinate (ER) [Toprol 25 mg PO DAILY 12/10/18 01/05/23 History XL] Chlorthalidone [Hygroton] 25 mg PO DAILY 09/15/22 01/05/23 History Losartan [Cozaar] 25 mg PO HS 09/15/22 01/05/23 History EPINEPHrine (Auto Inject) [Epipen] 0.3 mg IM ONCE PRN #2 each 10/02/22 01/05/23 Rx ALPRAZolam [Xanax] 0.25 mg PO DAILY PRN 01/01/23 01/05/23 History Cyclobenzaprine [Flexeril] 10 mg PO DAILY PRN 01/01/23 01/05/23 History Meclizine [Antivert] 25 mg PO TID PRN 01/01/23 01/05/23 History Tamsulosin [Flomax] 0.4 mg PO DAILY #7 cap 01/01/23 01/05/23 Rx Allergies Allergy/AdvReac Type Severity Reaction Status Date / Time regadenoson [From Lexiscan] Allergy Rash/Hives Verified 01/05/23 11:59 sulfamethoxazole Allergy Rash/Hives Verified 01/05/23 11:59 [From Bactrim] trimethoprim [From Bactrim] Allergy Rash/Hives Verified 01/05/23 11:59 Surgical - Exam Vital Signs Temp Pulse Resp BP Pulse Ox 97.9 F 78 18 160/84 100 01/05/23 10:06 01/05/23 10:06 01/05/23 10:06 01/05/23 10:06 01/05/23 10:06 - General no distress, moderate pain - Eyes normal ocular movement, no pale - ENT normal nares, normal mucosa - Respiratory normal expansion, normal respiratory effort - Abdomen Abdomen: soft, tender (Left flank), no distended - Psychiatric oriented to time, oriented to person, oriented to place Results - Labs 01/05/23 10:23 01/05/23 10:23 Abnormal Lab Results - Last 24 Hours (Table) 01/05/23 01/05/23 Range/Units 10:23 10:23 Carbon Dioxide 31 H (22-30) mmol/L BUN 24 H (9-20) mg/dL Creatinine 1.71 H (0.66-1.25) mg/dL Urine Protein Trace H (Negative) Urine Ketones 1+ H (Negative) Urine Blood Small H (Negative) Urine Mucus Rare H (None) /hpf Diabetes panel 01/05/23 Range/Units 10:23 Sodium 138 (137-145) mmol/L Potassium 3.7 (3.5-5.1) mmol/L Chloride 98 (98-107) mmol/L Carbon Dioxide 31 H (22-30) mmol/L BUN 24 H (9-20) mg/dL Creatinine 1.71 H (0.66-1.25) mg/dL Glucose 97 (74-99) mg/dL Calcium 9.0 (8.4-10.2) mg/dL AST 18 (17-59) U/L ALT 15 (4-49) U/L Alkaline Phosphatase 57 (38-126) U/L Total Protein 7.1 (6.3-8.2) g/dL Albumin 4.3 (3.5-5.0) g/dL Calcium panel 01/05/23 Range/Units 10:23 Calcium 9.0 (8.4-10.2) mg/dL Albumin 4.3 (3.5-5.0) g/dL Pituitary panel 01/05/23 Range/Units 10:23 Sodium 138 (137-145) mmol/L Potassium 3.7 (3.5-5.1) mmol/L Chloride 98 (98-107) mmol/L Carbon Dioxide 31 H (22-30) mmol/L BUN 24 H (9-20) mg/dL Creatinine 1.71 H (0.66-1.25) mg/dL Glucose 97 (74-99) mg/dL Calcium 9.0 (8.4-10.2) mg/dL Adrenal panel 01/05/23 Range/Units 10:23 Sodium 138 (137-145) mmol/L Potassium 3.7 (3.5-5.1) mmol/L Chloride 98 (98-107) mmol/L Carbon Dioxide 31 H (22-30) mmol/L BUN 24 H (9-20) mg/dL Creatinine 1.71 H (0.66-1.25) mg/dL Glucose 97 (74-99) mg/dL Calcium 9.0 (8.4-10.2) mg/dL Total Bilirubin 1.0 (0.2-1.3) mg/dL AST 18 (17-59) U/L ALT 15 (4-49) U/L Alkaline Phosphatase 57 (38-126) U/L Total Protein 7.1 (6.3-8.2) g/dL Albumin 4.3 (3.5-5.0) g/dL - Imaging CT scan - abdomen: image reviewed (5 mm left-sided proximal stone with hydronephrosis, multiple additional stones within the left collecting system) Assessment and Plan Assessment: This is a 67-year-old male with history of a 5 mm left-sided proximal stone, causing intractable pain. 2 emergency room presentation secondary to his pain. Also evidence of acute kidney injury with creatinine elevated at 1.7 from baseline of 0.8. Discussed with him given the elevation in creatinine and persistent pain the option of left-sided ureteroscopy with holmium laser. Discussed with him risk of surgery which includes but not limited to bleeding, infection, injury to the ureter. He understood all the risk and agreed to proceed -Nothing by mouth -Or for left-sided ureteroscopy, holmium laser lithotripsy, stone basketing and stent insertion
[2023-01-05] MEDS ORDERED: IV FLUID CONTINUATION 1,000 ML IV ONE (15:16)
[2023-01-05] MEDS ORDERED: PHENYLEPHRINE-0.9% NACL SYG 1,000 MCG/10 ML SYRINGE ONE (15:55)
[2023-01-05] MEDS ORDERED: PROPOFOL 10 MG/ML 20 ML VIAL IV ONE (15:55)
[2023-01-05] MEDS ORDERED: fentaNYL (PF) 50 MCG/ML 2 ML AMP ONE (15:55)
[2023-01-05] MEDS ORDERED: LIDOCAINE 2% INJ 20 MG/ML (2 ML VIAL) ONE (15:55)
[2023-01-05] MEDS ORDERED: MAGNESIUM SULFATE 4 MEQ/ML 10ML VIAL ONE (15:55)
[2023-01-05] MEDS ORDERED: SODIUM CHLORIDE 0.9% 100 ML with ceFAZolin 2,000 MG IV ONE ×2 (16:02)
[2023-01-05] MEDS ORDERED: MECLIZINE 25 MG TAB PO PRN (16:05)
[2023-01-05] MEDS ORDERED: ALPRAZolam 0.25 MG TAB PO PRN (16:05)
[2023-01-05] MEDS ORDERED: CYCLOBENZAPRINE 10 MG TAB PO PRN (16:05)
[2023-01-05] MEDS ORDERED: LACTATED RINGERS 1,000 ML IV ONE (16:39)
--- NOTE | 2023-01-05 16:53 | P.OP ---
Date of Procedure: 01/05/23 Preoperative Diagnosis: left ureteral stone Postoperative Diagnosis: Same Procedure(s) Performed: Cystoscopy, left ureteroscopy, holmium laser lithotripsy, stone basketing Implants: none Anesthesia: JARONA Surgeon: Son Samuel Estimated Blood Loss (ml): 5 Condition: stable Disposition: PACU Indications for Procedure: This is a 67-year-old male with history of a 5 mm left-sided proximal stone, causing intractable pain. 2 emergency room presentation secondary to his pain. Also evidence of acute kidney injury with creatinine elevated at 1.7 from baseline of 0.8. Discussed with him given the elevation in creatinine and persistent pain the option of left-sided ureteroscopy with holmium laser. Discussed with him risk of surgery which includes but not limited to bleeding, infection, injury to the ureter. He understood all the risk and agreed to proceed Operative Findings: Left-sided proximal stone, multiple stones within the kidney Description of Procedure: Patient brought to the operating room, general anesthesia was induced. He was prepped and draped in sterile fashion and placed in dorsal lithotomy position. Cystoscopy fitted with a 21-Lithuanian sheath was inserted per urethra, cystoscopy was performed which showed no abnormality within the bladder. Of note patient had slight enlargement of the prostate that were partially obstructed. At this time attention was then carried to the left ureteral orifice which was intubated with a sensor wire. Next under fluoroscopy 1113 Lithuanian access sheath was passed over the wire I was only able to advance the access sheath into the mid ureter, as resistance was met.. Next a flexible ureteroscope was inserted through the access sheath I was able to advance the scope into the proximal ureter. Ureteroscopy was performed which showed a large stone in the proximal ureter. Using the holmium laser the stone was dusted, sizable fragments were removed using the stone basket. At this time the ureteroscope was advanced into the kidney, renoscopy was performed showed multiple stones throughout the kidney that were dusted, sizable fragments were removed and sent for analysis. Repeat renoscopy showed no sizable stones or injury to the kidney. Pullback ureteroscopy was performed which showed no injury to the ureter or sizable fragments, there was no ureteral edema thus stent was not placed. The bladder was emptied at the end of the case, the stones were sent for analysis. Patient tolerated the procedure was taken to recovery in stable condition
--- NOTE | 2023-01-05 17:10 | ED ---
Abdominal Pain HPI - General Chief Complaint: Recheck/Abnormal Lab/Rx Stated Complaint: abd pain Time Seen by Provider: 01/05/23 10:14 Source: patient Mode of arrival: ambulatory Limitations: no limitations - History of Present Illness Initial Comments: Patient is a 67-year-old male who presents to the emergency department for evaluation of left flank pain. Patient was recently diagnosed with a left kidney stone. He reports significant pain refractory to Vicodin. Patient has history of kidney stones states he is usually able to tolerate the pain. Patient reports fever last night. He denies nausea, vomiting, burning with urination. - Related Data Home Medications Medication Instructions Recorded Confirmed Metoprolol Succinate (ER) [Toprol 25 mg PO DAILY 12/10/18 01/05/23 XL] Chlorthalidone [Hygroton] 25 mg PO DAILY 09/15/22 01/05/23 Losartan [Cozaar] 25 mg PO HS 09/15/22 01/05/23 ALPRAZolam [Xanax] 0.25 mg PO DAILY PRN 01/01/23 01/05/23 Cyclobenzaprine [Flexeril] 10 mg PO DAILY PRN 01/01/23 01/05/23 Meclizine [Antivert] 25 mg PO TID PRN 01/01/23 01/05/23 Previous Rx's Medication Instructions Recorded EPINEPHrine (Auto Inject) [Epipen] 0.3 mg IM ONCE PRN #2 each 10/02/22 Tamsulosin [Flomax] 0.4 mg PO DAILY #7 cap 01/01/23 Allergies Allergy/AdvReac Type Severity Reaction Status Date / Time regadenoson [From Lexiscan] Allergy Rash/Hives Verified 01/05/23 11:59 sulfamethoxazole Allergy Rash/Hives Verified 01/05/23 11:59 [From Bactrim] trimethoprim [From Bactrim] Allergy Rash/Hives Verified 01/05/23 11:59 Review of Systems ROS Statement: Those systems with pertinent positive or pertinent negative responses have been documented in the HPI. ROS Other: All systems not noted in ROS Statement are negative. Past Medical History Past Medical History: Hypertension Additional Past Medical History / Comment(s): hx kidney stones, ascending aortic aneurysm(Dr Dacosta monitors), hx migraines, stress test results - questionable. recent chemical stress test caused pt to have a rash from injection site up his trunk.was seen in ER. Arthritis in fingers History of Any Multi-Drug Resistant Organisms: None Reported Past Surgical History: Hernia Repair, Orthopedic Surgery, Tonsillectomy Additional Past Surgical History / Comment(s): lithotripsy x 5 times; macular pucker surgery rt eye, inguinal hernia, rt hand ganglion cyst, rt foot toe /pinned, left foot surgery,cataract rt eye, nasal surgery, heart cath Past Anesthesia/Blood Transfusion Reactions: Motion Sickness, Postoperative Nausea & Vomiting (PONV) Additional Past Anesthesia/Blood Transfusion Reaction / Comment(s): hx nausea after lithotripsy Past Psychological History: No Psychological Hx Reported Smoking Status: Never smoker Past Alcohol Use History: Rare Past Drug Use History: None Reported - Past Family History Mother Family Medical History: Cancer Additional Family Medical History / Comment(s): . Father Additional Family Medical History / Comment(s): rheumatic fever when young. Father at age 86 from old age. Sister(s) Additional Family Medical History / Comment(s): Patient has one sister that from some type of myelodysplastic disorder Daughter(s) Family Medical History: No Reported History Additional Family Medical History / Comment(s): . General Exam Limitations: no limitations General appearance: alert, in no apparent distress Eye exam: Present: normal appearance, PERRL, EOMI. Absent: scleral icterus, conjunctival injection, periorbital swelling Respiratory exam: Present: normal lung sounds bilaterally. Absent: respiratory distress, wheezes, rales, rhonchi, stridor Cardiovascular Exam: Present: regular rate, normal rhythm, normal heart sounds. Absent: systolic murmur, diastolic murmur, rubs, gallop, clicks GI/Abdominal exam: Present: soft, normal bowel sounds. Absent: distended, tenderness, guarding, rebound, rigid Back exam: Present: normal inspection. Absent: tenderness, CVA tenderness (L), paraspinal tenderness, vertebral tenderness Neurological exam: Present: alert, oriented X3, CN II-XII intact Psychiatric exam: Present: normal affect, normal mood Skin exam: Present: warm, dry, intact, normal color. Absent: rash Course Vital Signs 01/05/23 01/05/23 01/05/23 10:06 13:23 14:53 Temperature 97.9 F 97.8 F Pulse Rate 78 80 74 Pulse Rate [ Pulse Oximetery ] Respiratory 18 18 16 Rate Blood Pressure 160/84 170/100 155/82 Blood Pressure [Right Arm] O2 Sat by Pulse 100 98 99 Oximetry 01/05/23 01/05/23 01/05/23 15:12 17:03 17:18 Temperature 98.3 F 97.4 F L Pulse Rate Pulse Rate [ 61 92 85 Pulse Oximetery ] Respiratory 16 16 16 Rate Blood Pressure Blood Pressure 147/83 161/76 151/79 [Right Arm] O2 Sat by Pulse 100 97 95 Oximetry 01/05/23 17:33 Temperature Pulse Rate Pulse Rate [ 88 Pulse Oximetery ] Respiratory 16 Rate Blood Pressure Blood Pressure 162/80 [Right Arm] O2 Sat by Pulse 96 Oximetry Procedures - [place] Protocol (Time Out) Patient Identification (2 identifiers required): Chart, Name, Birthdate Patient/Legal Head Golf Professional has Confirmed: Identity, Site, Procedure, Consent Site Marked: Not Applicable Medical Decision Making - Medical Decision Making Was pt. sent in by a medical professional or institution (, PA, BOAT TENDER, urgent care, hospital, or alf...) When possible be specific @ -No Did you speak to anyone other than the patient for history (EMS, parent, family, police, friend...)? What history was obtained from this source @ -No Did you review nursing and triage notes (agree or disagree)? Why? @ -I reviewed and agree with nursing and triage notes Were old charts reviewed (outside hosp., previous admission, EMS record, old EKG, old radiological studies, urgent care reports/EKG's, alf records)? Report findings @ -Yes, reviewed recent ultrasound which showed hydronephrosis reflecting possible stone Differential Diagnosis (chest pain, altered mental status, abdominal pain women, abdominal pain men, vaginal bleeding, weakness, fever, dyspnea, syncope, headache, dizziness, GI bleed, back pain, seizure, CVA, palpatations, mental health)? @ -Differential Abdominal Pain Men: Appendicitis, cholecystitis, diverticulosis, ischemic bowel, pancreatitis, hepatitis, UTI, gastroenteritis, AAA, incarcerated hernia, bowel obstruction, constipation, inflammatory bowel, hepatitis, peptic ulcer disease, splenic infarction, perforated viscus, testicular torsion, this is not meant to be an all-inclusive list EKG interpreted by me (3pts min.). @ -As above X-rays interpreted by me (1pt min.). @ -None done CT interpreted by me (1pt min.). @ -Yes, CT of the abdomen and pelvis without contrast shows a 5 mm left renal stone with moderate hydronephrosis U/S interpreted by me (1pt. min.). @ -None done What testing was considered but not performed or refused? (CT, X-rays, U/S, labs)? Why? @ -None What meds were considered but not given or refused? Why? @ -None Did you discuss the management of the patient with other professionals (professionals i.e. , PA, BOAT TENDER, lab, RT, psych nurse, director of social services, buckram sewer, teacher, chief accounting officer, vocational case manager)? Give summary @ -No Was smoking cessation discussed for >3mins.? @ -No Was critical care preformed (if so, how long)? @ -No Were there social determinants of health that impacted care today? How? (Homelessness, low income, unemployed, alcoholism, drug addiction, transportation, low edu. Level, literacy, decrease access to med. care, correction, rehab)? @ -No Was there de-escalation of care discussed even if they declined (Discuss DNR or withdrawal of care, Hospice)? DNR status @ -No What co-morbidities impacted this encounter? (DM, HTN, Smoking, COPD, CAD, Cancer, CVA, ARF, Chemo, Hep., AIDS, mental health diagnosis, sleep apnea, morbid obesity)? @ -None Was patient admitted / discharged? Hospital course, mention meds given and route, prescriptions, significant lab abnormalities, going to OR and other pertinent info. @ --Patient presenting with intractable left flank pain with recent kidney stone diagnosis. Afebrile, no vomiting. There is acute kidney injury at 1.71, worsening from recent creatinine at 01/01 at 1.29, baseline 0.8. CT shows a 5 mm ureteral stone with hydronephrosis. Case discussed with Dr. Kamara who accepts admission. Patient is NPO. Pain is controlled Undiagnosed new problem with uncertain prognosis? @ -No Drug Therapy requiring intensive monitoring for toxicity (Heparin, Nitro, Insulin, Cardizem)? @ -No Were any procedures done? @ -No Diagnosis/symptom? @ -Left kidney stone, acute kidney injury Acute, or Chronic, or Acute on Chronic? @ -Acute Uncomplicated (without systemic symptoms) or Complicated (systemic symptoms)? @ -Uncomplicated Side effects of treatment? @ -No Exacerbation, Progression, or Severe Exacerbation? @ -No Poses a threat to life or bodily function? How? (Chest pain, [place], [place], pneumonia, PE, COPD, DKA, ARF, appy, cholecystitis, CVA, Diverticulitis, Homicidal, Suicidal, threat to staff... and all critical care pts) @ -No Dr. Pop is my attending - Lab Data Result diagrams: 01/05/23 10:23 01/05/23 10: Lab Results 01/05/23 01/05/23 01/05/23 Range/Units 10: 10: 10: WBC 8.8 (3.8-10.6) k/uL RBC 4.80 (4.30-5.90) m/uL Hgb 14.6 (13.0-17.5) gm/dL Hct 41.3 (39.0-53.0) % MCV 86.2 (80.0-100.0) fL MCH 30.5 (25.0-35.0) pg MCHC 35.4 (31.0-37.0) g/dL RDW 12.6 (11.5-15.5) % Plt Count 198 (150-450) k/uL MPV 8.5 Neutrophils % 74 % Lymphocytes % 14 % Monocytes % 6 % Eosinophils % 4 % Basophils % 0 % Neutrophils # 6.5 (1.3-7.7) k/uL Lymphocytes # 1.2 (1.0-4.8) k/uL Monocytes # 0.6 (0-1.0) k/uL Eosinophils # 0.3 (0-0.7) k/uL Basophils # 0.0 (0-0.2) k/uL Sodium 138 (137-145) mmol/L Potassium 3.7 (3.5-5.1) mmol/L Chloride 98 (98-107) mmol/L Carbon Dioxide 31 H (22-30) mmol/L Anion Gap 9 mmol/L BUN 24 H (9-20) mg/dL Creatinine 1.71 H (0.66-1.25) mg/dL Est GFR (CKD-EPI)AfAm 47 (>60 ml/min/1.73 sqM) Est GFR (CKD-EPI)NonAf 41 (>60 ml/min/1.73 sqM) Glucose 97 (74-99) mg/dL Plasma Lactic Acid Khurram (0.7-2.0) mmol/L Calcium 9.0 (8.4-10.2) mg/dL Total Bilirubin 1.0 (0.2-1.3) mg/dL AST 18 (17-59) U/L ALT 15 (4-49) U/L Alkaline Phosphatase 57 (38-126) U/L Total Protein 7.1 (6.3-8.2) g/dL Albumin 4.3 (3.5-5.0) g/dL Urine Color Yellow Urine Appearance Clear (Clear) Urine pH 5.5 (5.0-8.0) Ur Specific [place] 1.017 (1.001-1.035) Urine Protein Trace H (Negative) Urine Glucose (UA) Negative (Negative) Urine Ketones 1+ H (Negative) Urine Blood Small H (Negative) Urine Nitrite Negative (Negative) Urine Bilirubin Negative (Negative) Urine Urobilinogen <2.0 (<2.0) mg/dL Ur Leukocyte Esterase Negative (Negative) Urine RBC 2 (0-5) /hpf Urine WBC 3 (0-5) /hpf Ur Squamous Epith Cells <1 (0-4) /hpf Urine Mucus Rare H (None) /hpf 01/05/23 Range/Units 10:23 WBC (3.8-10.6) k/uL RBC (4.30-5.90) m/uL Hgb (13.0-17.5) gm/dL Hct (39.0-53.0) % MCV (80.0-100.0) fL MCH (25.0-35.0) pg MCHC (31.0-37.0) g/dL RDW (11.5-15.5) % Plt Count (150-450) k/uL MPV Neutrophils % % Lymphocytes % % Monocytes % % Eosinophils % % Basophils % % Neutrophils # (1.3-7.7) k/uL Lymphocytes # (1.0-4.8) k/uL Monocytes # (0-1.0) k/uL Eosinophils # (0-0.7) k/uL Basophils # (0-0.2) k/uL Sodium (137-145) mmol/L Potassium (3.5-5.1) mmol/L Chloride (98-107) mmol/L Carbon Dioxide (22-30) mmol/L Anion Gap mmol/L BUN (9-20) mg/dL Creatinine (0.66-1.25) mg/dL Est GFR (CKD-EPI)AfAm (>60 ml/min/1.73 sqM) Est GFR (CKD-EPI)NonAf (>60 ml/min/1.73 sqM) Glucose (74-99) mg/dL Plasma Lactic Acid Khurram 0.9 (0.7-2.0) mmol/L Calcium (8.4-10.2) mg/dL Total Bilirubin (0.2-1.3) mg/dL AST (17-59) U/L ALT (4-49) U/L Alkaline Phosphatase (38-126) U/L Total Protein (6.3-8.2) g/dL Albumin (3.5-5.0) g/dL Urine Color Urine Appearance (Clear) Urine pH (5.0-8.0) Ur Specific [place] (1.001-1.035) Urine Protein (Negative) Urine Glucose (UA) (Negative) Urine Ketones (Negative) Urine Blood (Negative) Urine Nitrite (Negative) Urine Bilirubin (Negative) Urine Urobilinogen (<2.0) mg/dL Ur Leukocyte Esterase (Negative) Urine RBC (0-5) /hpf Urine WBC (0-5) /hpf Ur Squamous Epith Cells (0-4) /hpf Urine Mucus (None) /hpf Disposition Clinical Impression: Left renal stone, SKYLAR (acute kidney injury) Disposition: ADMITTED IP TO THIS HOSP
[2023-01-05] MEDS: MAGNESIUM SULFATE-D5W PMX 1 GM in DEXTROSE/WATER 1 100ML.BAG IVPB SCH ×2 (18:48→18:50)
[2023-01-05] MEDS ORDERED: LOSARTAN 25 MG TAB PO SCH (21:00)
[2023-01-06] MEDS: SODIUM CHLORIDE 0.9% 1,000 ML IV SCH (06:46)
[2023-01-06 07:10] LABS: Calcium 8.1 mg/dL (8.4-10.2); Potassium 3.7 mmol/L (3.5-5.1)
--- NOTE | 2023-01-06 08:51 | FL ---
EXAMINATION TYPE: FL guidance operating room DATE OF EXAM: 01/05/2023 FLUOROSCOPY Fluoroscopy time of 12.5 seconds was used during urologic intervention with ureteral stent insertion. 1 image/s document/s the procedure. DAP: 0.02661 Gycm2
[2023-01-06] MEDS ORDERED: CHLORTHALIDONE 25 MG TAB PO SCH (09:00)
[2023-01-06] MEDS ORDERED: METOPROLOL SUCCINATE (ER) 25 MG TAB.ER.24H PO SCH (09:00)
[2023-01-06] MEDS ORDERED: TAMSULOSIN 0.4 MG CAP.ER.24H PO SCH (09:00)
[2023-01-06 10:57] VITALS: PULSE 72; RESP 18
--- NOTE | 2023-01-06 13:01 | P.PN ---
Subjective Progress Note Date: 01/06/23 No acute overnight events, underwent left-sided ureteroscopy yesterday. Denies any flank pain or nausea and vomiting of this time. Objective - Vital Signs Vital signs: Vital Signs Temp 97.5 F L 01/06/23 08:00 Pulse 72 01/06/23 08:00 Resp 18 01/06/23 08:00 BP 168/71 01/06/23 08:00 Pulse Ox 99 01/06/23 08:00 FiO2 Intake & Output 01/05/23 01/06/23 01/06/23 18:59 06:59 18:59 Intake Total 1200 598 Output Total 0 Balance 1200 598 Weight 88.451 kg Intake: IV 1200 Oral 598 Output: Estimated Blood Loss 0 Other: Voiding Method Toilet Toilet Urinal Urinal # Voids 2 - Constitutional General appearance: Present: no acute distress - Gastrointestinal General gastrointestinal: Present: soft. Absent: distended, tenderness - Psychiatric Psychiatric: Present: A&O x's 3 - Labs CBC & Chem 7: 01/05/23 10:23 01/06/23 05:46 Labs: Abnormal Lab Results - Last 24 Hours (Table) 01/06/23 Range/Units 05:46 Sodium 135 L (137-145) mmol/L Creatinine 1.36 H (0.66-1.25) mg/dL Calcium 8.1 L (8.4-10.2) mg/dL Assessment and Plan Assessment: This is a 67-year-old male with history of a 5 mm left-sided proximal stone, causing intractable pain. 2 emergency room presentation secondary to his pain. Also evidence of acute kidney injury with creatinine elevated at 1.7 from baseline of 0.8. Underwent left-sided ureteroscopy with holmium laser yesterday. Creatinine improved to 1.3. Patient was having PVCs prior to surgery and continues post surgery. Cardiology is on board -await cardiology recs -Ok for discharge from urology standpoint
--- NOTE | 2023-01-06 13:06 | P.CRDCN ---
History of Present Illness Consult date: 01/06/23 Consult reason: other (abnormal EKG) Chief complaint: abnormal ekg History of present illness: History of present illness: Patient is a pleasant 67-year-old male with significant past medical history of AAA, migraines, stone who presented to the emergency department yesterday with left flank pain. He was found to have a left kidney stone and underwent cystoscopy and lithotripsy 01/05. During the procedure he was found to have abnormal EKG with frequent PVCs. He reports that he has had multiple kidney stones and lithotripsy procedures in the past and recalls having felt palpitations with anesthesia. He also reports that he has trigeminy in the past. He reports occasionally feeling palpitations with this has not been bothersome to him. He denies any chest pain, shortness breath, dizziness, syncope. No family history of sudden . He does follow with Dr. Suh, cardiology, the office. He was unable to complete a stress test due to ALLERGIC reaction and therefore underwent a heart catheterization 11/23/22 which revealed mild CAD normal left-sided filling pressures. He is unable to recall when his l ast echo was. EKG shows sinus rhythm with frequent PVCs. Labs reviewed creatinine improved to 1.36, potassium 3.7, mag 2.3. REVIEW OF SYSTEMS: No fever or chills. No cough or expectoration. No natalya phoresis. Patient denies headache, dizziness, blurred vision, double vision. Patient denies any stomach discomfort. No nausea, vomiting. No hematochezia. No hematemesis. Denies any black stools or blood in his stools. Denies dysuria or hematuria. No muscle weakness or numbness. No chest pain or pressure. PHYSICAL EXAMINATION: This is a 67 year-old male in no apparent distress at the time of my examination. HEENT: Head is atraumatic, normocephalic. Pupils are equal, round. Sclerae anicteric. Conjunctivae are clear. Mucous membranes of the mouth are moist. Neck is supple. There is no jugular venous distention. No carotid bruit is heard. CHEST EXAMINATION: Lungs are clear to auscultation. No chest wall tenderness is noted on palpation or with deep breathing. HEART EXAMINATION: Irregular regular rate. S1, S2 heard. No murmurs, gallops or rub. ABDOMEN: Soft, nontender. Bowel sounds are heard. EXTREMITIES: 2+ peripheral pulses with no evidence of peripheral edema and no calf tenderness noted. NEUROLOGIC EXAMINATION: Patient is awake, alert and oriented x3. IMPRESSION AND PLAN: Kidney stones status post lithotripsy Abnormal ECG, sinus rhythm with multiple PVCs AAA PLAN: Continue with metopolol. Recent heart cath last month with mild CAD. Continue current regimen. No further cardiac work-up indicated at this time. OK to DC. Cardiology to sign off. Follow up with Dr. Dacosta in clinic. I am dictating on behalf of Dr. Kei Pak's history/physical and assessment/plan. Past Medical History Past Medical History: Hypertension Additional Past Medical History / Comment(s): hx kidney stones, ascending aortic aneurysm(Dr Dacosta monitors), hx migraines, stress test results - questionable. recent chemical stress test caused pt to have a rash from injection site up his trunk.was seen in ER. Arthritis in fingers History of Any Multi-Drug Resistant Organisms: None Reported Past Surgical History: Hernia Repair, Orthopedic Surgery, Tonsillectomy Additional Past Surgical History / Comment(s): lithotripsy x 5 times; macular pucker surgery rt eye, inguinal hernia, rt hand ganglion cyst, rt foot toe /pinned, left foot surgery,cataract rt eye, nasal surgery, heart cath Past Anesthesia/Blood Transfusion Reactions: Motion Sickness, Postoperative Nausea & Vomiting (PONV) Additional Past Anesthesia/Blood Transfusion Reaction / Comment(s): hx nausea after lithotripsy Smoking Status: Never smoker - Past Family History Mother Family Medical History: Cancer Additional Family Medical History / Comment(s): . Father Additional Family Medical History / Comment(s): rheumatic fever when young. Father at age 86 from old age. Sister(s) Additional Family Medical History / Comment(s): Patient has one sister that from some type of myelodysplastic disorder Daughter(s) Family Medical History: No Reported History Additional Family Medical History / Comment(s): . Medications and Allergies Home Medications Medication Instructions Recorded Confirmed Type Metoprolol Succinate (ER) [Toprol 25 mg PO DAILY 12/10/18 01/05/23 History XL] Chlorthalidone [Hygroton] 25 mg PO DAILY 09/15/22 01/05/23 History Losartan [Cozaar] 25 mg PO HS 09/15/22 01/05/23 History EPINEPHrine (Auto Inject) [Epipen] 0.3 mg IM ONCE PRN #2 each 10/02/22 01/05/23 Rx ALPRAZolam [Xanax] 0.25 mg PO DAILY PRN 01/01/23 01/05/23 History Cyclobenzaprine [Flexeril] 10 mg PO DAILY PRN 01/01/23 01/05/23 History Meclizine [Antivert] 25 mg PO TID PRN 01/01/23 01/05/23 History Tamsulosin [Flomax] 0.4 mg PO DAILY #7 cap 01/01/23 01/05/23 Rx Allergies Allergy/AdvReac Type Severity Reaction Status Date / Time regadenoson [From Lexiscan] Allergy Rash/Hives Verified 01/05/23 11:59 sulfamethoxazole Allergy Rash/Hives Verified 01/05/23 11:59 [From Bactrim] trimethoprim [From Bactrim] Allergy Rash/Hives Verified 01/05/23 11:59 Physical Exam Vitals: Vital Signs Temp Pulse Pulse Resp BP BP Pulse Ox 01/06/23 03:09 98.5 F 49 L 16 162/82 96 01/06/23 00:00 97.5 F L 68 16 134/81 98 01/05/23 20:00 98.4 F 60 16 171/76 99 01/05/23 18:30 70 16 148/88 99 01/05/23 18:15 68 18 168/104 98 01/05/23 18:00 98.3 F 80 16 162/110 99 01/05/23 17:33 88 16 162/80 96 01/05/23 17:18 85 16 151/79 95 01/05/23 17:03 97.4 F L 92 16 161/76 97 01/05/23 15:12 98.3 F 61 16 147/83 100 01/05/23 14:53 97.8 F 74 16 155/82 99 01/05/23 13:23 80 18 170/100 98 01/05/23 10:06 97.9 F 78 18 160/84 100 Intake and Output 01/05/23 01/06/23 01/06/23 22:59 06:59 14:59 Intake Total 1200 Output Total 0 Balance 1200 Intake: IV 1200 Output: Estimated Blood Loss 0 Other: Voiding Method Toilet Toilet Urinal Urinal # Voids 2 Weight 88.451 kg Results 01/05/23 10:23 01/06/23 05:46 Cardiac Enzymes 01/05/23 Range/Units 10:23 AST 18 (17-59) U/L CBC 01/05/23 Range/Units 10:23 WBC 8.8 (3.8-10.6) k/uL RBC 4.80 (4.30-5.90) m/uL Hgb 14.6 (13.0-17.5) gm/dL Hct 41.3 (39.0-53.0) % Plt Count 198 (150-450) k/uL Comprehensive Metabolic Panel 01/05/23 01/06/23 Range/Units 10: 05:46 Sodium 138 135 L (137-145) mmol/L Potassium 3.7 3.7 (3.5-5.1) mmol/L Chloride 98 100 (98-107) mmol/L Carbon Dioxide 31 H 28 (22-30) mmol/L BUN 24 H 16 (9-20) mg/dL Creatinine 1.71 H 1.36 H (0.66-1.25) mg/dL Glucose 97 89 (74-99) mg/dL Calcium 9.0 8.1 L (8.4-10.2) mg/dL AST 18 (17-59) U/L ALT 15 (4-49) U/L Alkaline Phosphatase 57 (38-126) U/L Total Protein 7.1 (6.3-8.2) g/dL Albumin 4.3 (3.5-5.0) g/dL Current Medications Generic Name Dose Route Start Last Admin Trade Name Freq PRN Reason Stop Dose Admin Alprazolam 0.25 mg 01/05/23 16:05 Alprazolam 0.25 Mg Tab PO DAILY PRN Anxiety Chlorthalidone 25 mg 01/06/23 09:00 01/06/23 09:07 Chlorthalidone 25 Mg Tab PO 25 mg DAILY LEANNE Administration Cyclobenzaprine HCl 10 mg 01/05/23 16:05 Cyclobenzaprine 10 Mg Tab PO DAILY PRN Muscle Spasm Epinephrine HCl 0.3 mg 01/05/23 16:10 Epinephrine 1 Mg/Ml 1 Ml Vial IM 01/15/23 16:11 ONCE PRN Anaphylaxis Hydromorphone HCl 0.5 mg 01/05/23 12:36 01/05/23 13:16 Hydromorphone 0.5 Mg/0.5 Ml Syringe IVP 0.5 mg Q4HR PRN Administration pain Sodium Chloride 1,000 mls @ 130 mls/hr 01/05/23 12:15 01/06/23 06:46 Saline 0.9% IV 130 mls/hr .[id number] LEANNE Administration Ceftriaxone Sodium 1 gm/ 50 mls @ 100 mls/hr 01/05/23 18:00 01/06/23 09:07 Sodium Chloride IVPB 100 mls/hr Q24HR LEANNE Administration Protocol Losartan Potassium 25 mg 01/05/23 21:00 01/05/23 20:32 Losartan 25 Mg Tab PO 25 mg HS LEANNE Administration Meclizine HCl 25 mg 01/05/23 16:05 Meclizine 25 Mg Tab PO TID PRN Vertigo Metoprolol Succinate 25 mg 01/06/23 09:00 01/06/23 09:07 Metoprolol Succinate (Er) 25 Mg Tab.Er.24h PO 25 mg DAILY LEANNE Administration Naloxone HCl 0.2 mg 01/05/23 12:13 Naloxone 0.4 Mg/Ml 1 Ml Vial IV Q2M PRN Opioid Reversal Ondansetron HCl 4 mg 01/05/23 12:25 01/05/23 13:20 Ondansetron 4 Mg/2 Ml Vial IVP 4 mg Q8H PRN Administration Nausea Tamsulosin HCl 0.4 mg 01/06/23 09:00 01/06/23 09:07 Tamsulosin 0.4 Mg Cap.Er.24h PO 0.4 mg DAILY LEANNE Administration Intake and Output 01/05/23 01/06/23 01/06/23 22:59 06:59 14:59 Intake Total 1200 Output Total 0 Balance 1200 Intake: IV 1200 Output: Estimated Blood Loss 0 Other: Voiding Method Toilet Toilet Urinal Urinal # Voids 2 Weight 88.451 kg 01/05/23 10:23 01/06/23 05:46
[2023-01-06 14:46] VITALS: BP 166/85; TEMP 98.2
--- NOTE | 2023-01-06 20:30 | P.CONS ---
History of Present Illness - Reason for Consult Consult date: 01/06/23 Medical management - Chief Complaint Flank pain - History of Present Illness 67-year-old male who presents to the emergency department for evaluation of left flank pain. Patient was recently diagnosed with a left kidney stone. He reports significant pain refractory to Vicodin. Patient has history of kidney stones states he is usually able to tolerate the pain. Patient reports fever last night. He denies nausea, vomiting, burning with urination. Review of Systems REVIEW OF SYSTEMS: CONSTITUTIONAL: No fever, no malaise, no fatigue. HEENT: No recent visual problems or hearing problems. Denied any sore throat. CARDIOVASCULAR: No chest pain, orthopnea, PND, no palpitations, no syncope. PULMONARY: No shortness of breath, no cough, no hemoptysis. GASTROINTESTINAL: No diarrhea, no nausea, no vomiting, complaints of abdominal/ flank pain. NEUROLOGICAL: No headaches, no weakness, no numbness. HEMATOLOGICAL: Denies any bleeding or petechiae. GENITOURINARY: Denies any burning micturition, frequency, or urgency. MUSCULOSKELETAL/RHEUMATOLOGICAL: Denies any joint pain, swelling, or any muscle pain. ENDOCRINE: Denies any polyuria or polydipsia. The rest of the 14-point review of systems is negative. Past Medical History Past Medical History: Hypertension Additional Past Medical History / Comment(s): hx kidney stones, ascending aortic aneurysm(Dr Olesya winchester), hx migraines, stress test results - questionable. recent chemical stress test caused pt to have a rash from injection site up his trunk.was seen in ER. Arthritis in fingers History of Any Multi-Drug Resistant Organisms: None Reported Past Surgical History: Hernia Repair, Orthopedic Surgery, Tonsillectomy Additional Past Surgical History / Comment(s): lithotripsy x 5 times; macular pucker surgery rt eye, inguinal hernia, rt hand ganglion cyst, rt foot toe /pinned, left foot surgery,cataract rt eye, nasal surgery, heart cath Past Anesthesia/Blood Transfusion Reactions: Motion Sickness, Postoperative Nausea & Vomiting (PONV) Additional Past Anesthesia/Blood Transfusion Reaction / Comm: hx nausea after lithotripsy Smoking Status: Never smoker - Past Family History Mother Family Medical History: Cancer Additional Family Medical History / Comment(s): . Father Additional Family Medical History / Comment(s): rheumatic fever when young. Father at age 86 from old age. Sister(s) Additional Family Medical History / Comment(s): Patient has one sister that from some type of myelodysplastic disorder Daughter(s) Family Medical History: No Reported History Additional Family Medical History / Comment(s): . Medications and Allergies Home Medications Medication Instructions Recorded Confirmed Type Metoprolol Succinate (ER) [Toprol 25 mg PO DAILY 12/10/18 01/05/23 History XL] Chlorthalidone [Hygroton] 25 mg PO DAILY 09/15/22 01/05/23 History Losartan [Cozaar] 25 mg PO HS 09/15/22 01/05/23 History EPINEPHrine (Auto Inject) [Epipen] 0.3 mg IM ONCE PRN #2 each 10/02/22 01/05/23 Rx ALPRAZolam [Xanax] 0.25 mg PO DAILY PRN 01/01/23 01/05/23 History Cyclobenzaprine [Flexeril] 10 mg PO DAILY PRN 01/01/23 01/05/23 History Meclizine [Antivert] 25 mg PO TID PRN 01/01/23 01/05/23 History Tamsulosin [Flomax] 0.4 mg PO DAILY #7 cap 01/01/23 01/05/23 Rx Allergies Allergy/AdvReac Type Severity Reaction Status Date / Time regadenoson [From Lexiscan] Allergy Rash/Hives Verified 01/05/23 11:59 sulfamethoxazole Allergy Rash/Hives Verified 01/05/23 11:59 [From Bactrim] trimethoprim [From Bactrim] Allergy Rash/Hives Verified 01/05/23 11:59 Physical Exam Vitals: Vital Signs Temp Pulse Pulse Resp BP BP Pulse Ox 01/06/23 03:09 98.5 F 49 L 16 162/82 96 01/06/23 00:00 97.5 F L 68 16 134/81 98 01/05/23 20:00 98.4 F 60 16 171/76 99 01/05/23 18:30 70 16 148/88 99 01/05/23 18:15 68 18 168/104 98 01/05/23 18:00 98.3 F 80 16 162/110 99 01/05/23 17:33 88 16 162/80 96 01/05/23 17:18 85 16 151/79 95 01/05/23 17:03 97.4 F L 92 16 161/76 97 01/05/23 15:12 98.3 F 61 16 147/83 100 01/05/23 14:53 97.8 F 74 16 155/82 99 01/05/23 13:23 80 18 170/100 98 01/05/23 10:06 97.9 F 78 18 160/84 100 Intake and Output 01/05/23 01/06/23 01/06/23 22:59 06:59 14:59 Intake Total 1200 Output Total 0 Balance 1200 Intake: IV 1200 Output: Estimated Blood Loss 0 Other: Voiding Method Toilet Toilet Urinal Urinal # Voids 2 Weight 88.451 kg General appearance: alert, in no apparent distress Eye exam: Present: normal appearance, PERRL, EOMI. Absent: scleral icterus, conjunctival injection, periorbital swelling Respiratory exam: Present: normal lung sounds bilaterally. Absent: respiratory distress, wheezes, rales, rhonchi, stridor Cardiovascular Exam: Present: regular rate, normal rhythm, normal heart sounds. Absent: systolic murmur, diastolic murmur, rubs, gallop, clicks GI/Abdominal exam: Present: soft, normal bowel sounds. Absent: distended, tend erness, guarding, rebound, rigid Back exam: Present: normal inspection. Absent: tenderness, CVA tenderness (L), paraspinal tenderness, vertebral tenderness Neurological exam: Present: alert, oriented X3, CN II-XII intact Psychiatric exam: Present: normal affect, normal mood Skin exam: Present: warm, dry, intact, normal color. Absent: rash Results CBC & Chem 7: 01/05/23 10:23 01/06/23 05:46 Labs: Abnormal Lab Results - Last 24 Hours (Table) 01/05/23 01/05/23 01/06/23 Range/Units 10:23 10:23 05:46 Sodium 135 L (137-145) mmol/L Carbon Dioxide 31 H (22-30) mmol/L BUN 24 H (9-20) mg/dL Creatinine 1.71 H 1.36 H (0.66-1.25) mg/dL Calcium 8.1 L (8.4-10.2) mg/dL Urine Protein Trace H (Negative) Urine Ketones 1+ H (Negative) Urine Blood Small H (Negative) Urine Mucus Rare H (None) /hpf Assessment and Plan Assessment: 1. Abdominal pain/left ureteral stone; CT of the abdomen reveals left ureteral stone with hydronephrosis -Urology on board; patient is status post Cystoscopy, left ureteroscopy, holmium laser lithotripsy, stone basketing - Remains on IV fluid hydration; continue with current pain control 2. Obstructive uropathy/hydronephrosis; related to her left ureteral stone; patient underwent Cystoscopy, left ureteroscopy, holmium laser lithotripsy, stone basketing 3. Acute renal injury related to obstructive uropathy; creatinine trended up from 0.7 upon admission up to 1.67; this morning creatinine is trending down and is at 1.36. Cystoscopy, left ureteroscopy, laser lithotripsy and stone basketing - We will monitor renal function and electrolytes closely; monitor strict JEREMIAH's; avoid nephrotoxins and hypotension 4. Hypertension; patient takes chlorthalidone 25 mg daily along with Toprol-XL 25 mg daily, losartan 25 mg by mouth daily at bedtime 5. BPH/urinary incontinence; Flomax or 0.4 mg daily 6. Anxiety; Xanax 0.25 mg daily when necessary DVT prophylaxis; SCDs CODE STATUS; full code
== END 2023-01-06 15:13 | disposition home or self-care (01) | DRG 694 ==
LOC: EC 09:56 → 3SCARD 14:01 → EC 15:12
PROVIDERS: ADMIT Urology; ATTEND Urology
PROC: 0TC78ZZ Extirpation of Matter from Left Ureter, Via Natural or Artificial Opening Endoscopic (ICD-10-PCS; principal; 2023-01-05 14:50)
DX: N13.2 Hydronephrosis with renal and ureteral calculous obstruction (principal); N17.9 Acute kidney failure, unspecified; I71.21 Aneurysm of the ascending aorta, without rupture; R31.0 Gross hematuria; I49.3 Ventricular premature depolarization; N40.1 Benign prostatic hyperplasia with lower urinary tract symptoms; N39.498 Other specified urinary incontinence; F41.9 Anxiety disorder, unspecified; I25.10 Atherosclerotic heart disease of native coronary artery without angina pectoris; I10 Essential (primary) hypertension; M19.049 Primary osteoarthritis, unspecified hand; G43.909 Migraine, unspecified, not intractable, without status migrainosus; Z87.442 Personal history of urinary calculi; Z79.899 Other long term (current) drug therapy; Z88.2 Allergy status to sulfonamides; Z88.8 Allergy status to other drugs, medicaments and biological substances
CPT/HCPCS: 36415; 74176; 80048; 80053; 81001; 82365; 83605; 83735; 85025; 96361; 96374; 96375; 99285

== ENCOUNTER 2023-01-30 13:10 | Emergency (ER) | payer OTHER, MEDICARE ==
[2023-01-30 13:22] VITALS: TEMP 96.5
[2023-01-30] MEDS ORDERED: SODIUM CHLORIDE 0.9% 1,000 ML IV STA ×2 (13:29→18:09)
[2023-01-30] MEDS ORDERED: ONDANSETRON 4 MG/2 ML VIAL IVP STA (13:29)
[2023-01-30] MEDS ORDERED: PANTOPRAZOLE 40 MG/10 ML VIAL IVP STA (13:29)
[2023-01-30] MEDS ORDERED: KETOROLAC 15 MG/ML 1 ML VIAL IVP STA (13:29)
[2023-01-30] MEDS ORDERED: HYDROmorphone 1 MG/ML 1 ML SYRINGE IVP STA ×2 (13:30→18:09)
[2023-01-30 13:44] LABS: Basophils % (A) 0 %; Eosinophils # (A) 0.2 k/uL (0-0.7); Eosinophils % (A) 4 %; HCT 38.6 % (39.0-53.0); HGB 13.7 gm/dL (13.0-17.5); Lymphocytes # (A) 1.4 k/uL (1.0-4.8); Lymphocytes % (A) 23 %; MCH 29.8 pg (25.0-35.0); MCHC 35.5 g/dL (31.0-37.0); MCV 83.7 fL (80.0-100.0); Monocytes # (A) 0.3 k/uL (0-1.0); Monocytes % (A) 5 %; Neutrophils # (A) 4.2 k/uL (1.3-7.7); Neutrophils % (A) 67 %; Platelet Count 153 k/uL (150-450); RBC 4.61 m/uL (4.30-5.90); RDW 12.3 % (11.5-15.5); WBC 6.2 k/uL (3.8-10.6)
[2023-01-30 13:56] LABS: Partial Thromboplastin Time 23.5 sec (22.0-30.0); Prothrombin Time 10.9 sec (9.0-12.0)
--- NOTE | 2023-01-30 14:04 | ED ---
General Adult HPI - General Source: patient, RN notes reviewed, old records reviewed Mode of arrival: EMS Limitations: no limitations <Duy Whaley - Last Filed: 01/30/23 15:13> <Vivek Ortega - Last Filed: 01/30/23 19:13> - General Chief complaint: Abdominal Pain Stated complaint: Abd pain Time Seen by Provider: 01/30/23 13:15 - History of Present Illness Initial comments: Patient is a 67-year-old male with past medical history remarkable for kidney stones with history of lithotripsy, as well as ureteroscopy who presents emergency Department complaining of sudden onset right lower quadrant and right flank pain. Believes it is a kidney stone. States it started suddenly parsley 2 hours prior to arrival. Has some radiation from his right flank towards his right groin. This is a intense pain. Does have a history of an ascending aortic aneurysm but no history of descending aneurysm. Denies chest pain or shortness of breath. States this is typical for his kidney stone type pain. Denies any hematuria or dysuria. Does endorse some nausea but no episodes of emesis. Denies any back pain. Denies any fevers, cough, sick contacts. Denies any changes in bowel habits. Presents for further evaluation at this time. (Duy Whaley) - Related Data Home Medications Medication Instructions Recorded Confirmed Metoprolol Succinate (ER) [Toprol 25 mg PO DAILY 12/10/18 01/30/23 XL] Chlorthalidone [Hygroton] 25 mg PO DAILY 09/15/22 01/30/23 Losartan [Cozaar] 25 mg PO HS 09/15/22 01/30/23 ALPRAZolam [Xanax] 0.25 mg PO DAILY PRN 01/01/23 01/30/23 Cyclobenzaprine [Flexeril] 10 mg PO DAILY PRN 01/01/23 01/30/23 Meclizine [Antivert] 25 mg PO TID PRN 01/01/23 01/30/23 Previous Rx's Medication Instructions Recorded EPINEPHrine (Auto Inject) [Epipen] 0.3 mg IM ONCE PRN #2 each 10/02/22 Tamsulosin [Flomax] 0.4 mg PO DAILY #7 cap 01/30/23 Allergies Allergy/AdvReac Type Severity Reaction Status Date / Time regadenoson [From Lexiscan] Allergy Rash/Hives Verified 01/30/23 13:42 sulfamethoxazole Allergy Rash/Hives Verified 01/30/23 13:42 [From Bactrim] trimethoprim [From Bactrim] Allergy Rash/Hives Verified 01/30/23 13:42 Review of Systems ROS Other: All systems not noted in ROS Statement are negative. <Duy Whaley - Last Filed: 01/30/23 15:13> ROS Other: All systems not noted in ROS Statement are negative. <Vivek Ortega - Last Filed: 01/30/23 19:13> ROS Statement: Those systems with pertinent positive or pertinent negative responses have been documented in the HPI. Review of Systems: CONST: Denies fever EYES: Denies blurry vision ENT: Denies nasal congestion C/V: Denies Chest pain RESP: Denies shortness of breath GI: Endorses right flank pain : Denies dysuria SKIN: Denies rash. MSK: Denies joint pain. NEURO: Denies headache (Duy Whaley) Past Medical History Past Medical History: Hypertension Additional Past Medical History / Comment(s): hx kidney stones, ascending aortic aneurysm(Dr Olesya [place]), hx migraines, stress test results - questionable. recent chemical stress test caused pt to have a rash from injection site up his trunk.was seen in ER. Arthritis in fingers History of Any Multi-Drug Resistant Organisms: None Reported Past Surgical History: Hernia Repair, Orthopedic Surgery, Tonsillectomy Additional Past Surgical History / Comment(s): lithotripsy x 5 times; macular pu cker surgery rt eye, inguinal hernia, rt hand ganglion cyst, rt foot toe /pinned, left foot surgery,cataract rt eye, nasal surgery, heart cath Past Anesthesia/Blood Transfusion Reactions: Motion Sickness, Postoperative Nausea & Vomiting (PONV) Additional Past Anesthesia/Blood Transfusion Reaction / Comment(s): hx nausea after lithotripsy Past Psychological History: No Psychological Hx Reported Smoking Status: Never smoker - Past Family History Mother Family Medical History: Cancer Additional Family Medical History / Comment(s): . Father Additional Family Medical History / Comment(s): rheumatic fever when young. Father at age 86 from old age. Sister(s) Additional Family Medical History / Comment(s): Patient has one sister that from some type of myelodysplastic disorder Daughter(s) Family Medical History: No Reported History Additional Family Medical History / Comment(s): . <Duy Whaley - Last Filed: 01/30/23 15:13> General Exam Limitations: no limitations <Duy Whaley - Last Filed: 01/30/23 15:13> General appearance: alert, in no apparent distress Head exam: Present: atraumatic, normocephalic, normal inspection Eye exam: Present: normal appearance, PERRL, EOMI. Absent: scleral icterus, conjunctival injection, periorbital swelling ENT exam: Present: normal exam, mucous membranes moist Neck exam: Present: normal inspection. Absent: tenderness, meningismus, lymphadenopathy Respiratory exam: Present: normal lung sounds bilaterally. Absent: respiratory distress, wheezes, rales, rhonchi, stridor Cardiovascular Exam: Present: regular rate, normal rhythm, normal heart sounds. Absent: systolic murmur, diastolic murmur, rubs, gallop, clicks GI/Abdominal exam: Present: soft, normal bowel sounds. Absent: distended, tenderness, guarding, rebound, rigid Extremities exam: Present: normal inspection, full ROM, normal capillary refill. Absent: tenderness, pedal edema, joint swelling, calf tenderness Back exam: Present: normal inspection Neurological exam: Present: alert, oriented X3, CN II-XII intact Psychiatric exam: Present: normal affect, normal mood Skin exam: Present: warm, dry, intact, normal color. Absent: rash <Vivek Ortega - Last Filed: 01/30/23 19:13> - General Exam Comments Initial Comments: General: Appears in moderate distress secondary to pain. HEAD: Normal with no signs of head trauma. EYES: PERRLA, EOMI, conjunctiva normal, no discharge. ENT: Hearing grossly intact, normal oropharynx. RESPIRATORY: Clear breath sounds bilaterally. No wheezes, rales, or rhonchi. C/V: Regular rate and rhythm. S1 and S2 auscultated, no edema, peripheral pulses 2+ and intact throughout ABD: Abdomen is soft, nondistended. Tender to palpation in the right flank and right lower quadrant. No guarding. No peritoneal signs. No rebound tenderness. No CVA tenderness to percussion. EXT: Normal range of motion, no obvious deformity SKIN: No rashes or lesions observed on exposed skin. NEURO: Alert and oriented 4.. (Duy Whaley) Course <Vivek Ortega - Last Filed: 01/30/23 19:13> Vital Signs 01/30/23 01/30/23 01/30/23 13:14 13:30 14:00 Temperature 96.5 F L Pulse Rate 76 77 75 Respiratory 19 20 16 Rate Blood Pressure 171/92 120/93 177/104 O2 Sat by Pulse 100 100 97 Oximetry 01/30/23 01/30/23 14:15 17:00 Temperature Pulse Rate 70 70 Respiratory 16 18 Rate Blood Pressure 148/97 141/78 O2 Sat by Pulse 96 98 Oximetry - Reevaluation(s) Reevaluation #1: 01/30/23 19:11 Medical records reviewed (Vivek Ortega) Reevaluation #2: 01/30/23 19:11 Patient has adequate pain control currently (Vivek Ortega) Reevaluation #3: 01/30/23 19:11 Patient informed results questions answered (Vivek Ortega) Reevaluation #4: 01/30/23 19:11 Was pt. sent in by a medical professional or institution? @ -no Did you speak to anyone other than the patient for history? @ -no Did you review nursing and triage notes? @ -agree Were old charts reviewed? @ -no Differential Diagnosis? @ -abdominal pain EKG interpreted by me (3pts min.)? @ -no X-rays interpreted by me (1pt min.)? @ -no CT interpreted by me (1pt min.)? @ -no U/S interpreted by me (1pt. min.)? @ -no What testing was considered but not performed? (CT, X-rays, U/S, labs)? Why? @ -no What meds were considered but not given? Why? @ -no Did you discuss the management of the patient with other professionals? @ -no Did you reconcile home meds? @ -no Was smoking cessation discussed for >3mins.? @ -no Was critical care preformed (if so, how long)? @ -no Were there social determinants of health that impacted care today? How? (Homelessness, low income, unemployed, alcoholism, drug addiction, transportation, low edu. Level, literacy, decrease access to med. care, long-term, rehab)? @ -no Was there de-escalation of care discussed even if they declined? (Discuss DNR or withdrawal of care, Hospice)? @ -no What co-morbidities impacted this encounter? (DM, HTN, Smoking, COPD, CAD, Cancer, CVA, Hep., AIDS, mental health diagnosis, sleep apnea, morbid obesity)? @ -no Was patient admitted / discharged? @ -dc Undiagnosed new problem with uncertain prognosis? @ -no Drug Therapy requiring intensive monitoring for toxicity (Heparin, Nitro, Insulin, Cardizem)? @ -no Were any procedures done? @ -no Diagnosis/symptom? @ -no Acute, or Chronic, or Acute on Chronic? @ -no Uncomplicated (without systemic symptoms) or Complicated (systemic symptoms)? @ -no Side effects of treatment? @ -no Exacerbation, Progression, or Severe Exacerbation] @ -no Poses a threat to life or bodily function? @ -no (Vivek Ortega) Medical Decision Making - Lab Data Result diagrams: 01/30/23 13:34 01/30/23 13:34 - EKG Data -: EKG Interpreted by Me <Duy Whaley - Last Filed: 01/30/23 15:13> - Lab Data Result diagrams: 01/30/23 13:34 01/30/23 13:34 - Radiology Data Radiology results: report reviewed (Ultrasound does show hydronephrosis CT abdomen and pelvis is positive for kidney stone), image reviewed <Vivek Ortega - Last Filed: 01/30/23 19:13> - Medical Decision Making Was pt. sent in by a medical professional or institution (, PA, SYNTHETIC STAPLE EXTRUDER, urgent care, hospital, or penitentiary...) When possible be specific @ -No Did you speak to anyone other than the patient for history (EMS, parent, family, police, friend...)? What history was obtained from this source @ -No Did you review nursing and triage notes (agree or disagree)? Why? @ -I reviewed and agree with nursing and triage notes Were old charts reviewed (outside hosp., previous admission, EMS record, old EKG, old radiological studies, urgent care reports/EKG's, penitentiary records)? Report findings @ -Old charts Reviewed from December 2022 Differential Diagnosis (chest pain, altered mental status, abdominal pain women, abdominal pain men, vaginal bleeding, weakness, fever, dyspnea, syncope, headache, dizziness, GI bleed, back pain, seizure, CVA, palpatations, mental health, musculoskeletal)? @ -Differential Abdominal Pain Men: Appendicitis, cholecystitis, diverticulosis, ischemic bowel, pancreatitis, hepatitis, UTI, gastroenteritis, AAA, incarcerated hernia, bowel obstruction, constipation, inflammatory bowel, hepatitis, peptic ulcer disease, splenic infarction, perforated viscus, testicular torsion, this is not meant to be an all-inclusive list EKG interpreted by me (3pts min.). @ -As above X-rays interpreted by me (1pt min.). @ -KUB x-ray shows no obvious acute intracranial process. CT interpreted by me (1pt min.). @ -None done U/S interpreted by me (1pt. min.). @ -Pending What testing was considered but not performed or refused? (CT, X-rays, U/S, labs)? Why? @ -None What meds were considered but not given or refused? Why? @ -None Did you discuss the management of the patient with other professionals (professionals i.e. , PA, SYNTHETIC STAPLE EXTRUDER, lab, RT, psych nurse, transition social worker, closer on, teacher, public safety officer, sample case porter)? Give summary @ -No Was smoking cessation discussed for >3mins.? @ -No Was critical care preformed (if so, how long)? @ -No Were there social determinants of health that impacted care today? How? (Homelessness, low income, unemployed, alcoholism, drug addiction, transportation, low edu. Level, literacy, decrease access to med. care, long-term, rehab)? @ -No Was there de-escalation of care discussed even if they declined (Discuss DNR or withdrawal of care, Hospice)? DNR status @ -No What co-morbidities impacted this encounter? (DM, HTN, Smoking, COPD, CAD, Cancer, CVA, ARF, Chemo, Hep., AIDS, mental health diagnosis, sleep apnea, morbid obesity)? @ -History of kidney stones Was patient admitted / discharged? Hospital course, mention meds given and route, prescriptions, significant lab abnormalities, going to OR and other pertinent info. @ -Based on the patient's presentation and physical exam, he presents with right flank pain and there is concern for kidney stones. Has a history of these. Seems typical for his symptoms. He'll be symptomatically treated with IV analgesia medications, fluids, Zofran. We will obtain abdominal laboratory studies as well as an ultrasound of his kidneys as well as a KUB to start. Screening EKG will also be obtained. He was in agreement with this plan. Vital signs are within acceptable limits. EKG shows no signs of ischemia.Patient's labs are remarkable for a slight lactic acidosis of 2.1. Urine shows a large amount of blood suspicious for kidney stone. KUB is unremarkable. Ultrasound is pending. At this time patient was signed out to oncoming emergency Department physician Dr. Ortega. Disposition is pending results of ultrasound and reevaluation. (Duy Whaley) 67 female to the emergency department with recurrent kidney stones his first kidney stone right-sided patient will follow-up on outpatient urology given pain control here in the ER adequate and can be discharged home (Vivek Ortega) - Lab Data Lab Results 01/30/23 01/30/23 01/30/23 Range/Units 13:34 13:34 13:34 WBC 6.2 (3.8-10.6) k/uL RBC 4.61 (4.30-5.90) m/uL Hgb 13.7 (13.0-17.5) gm/dL Hct 38.6 L (39.0-53.0) % MCV 83.7 (80.0-100.0) fL MCH 29.8 (25.0-35.0) pg MCHC 35.5 (31.0-37.0) g/dL RDW 12.3 (11.5-15.5) % Plt Count 153 (150-450) k/uL MPV 9.0 Neutrophils % 67 % Lymphocytes % 23 % Monocytes % 5 % Eosinophils % 4 % Basophils % 0 % Neutrophils # 4.2 (1.3-7.7) k/uL Lymphocytes # 1.4 (1.0-4.8) k/uL Monocytes # 0.3 (0-1.0) k/uL Eosinophils # 0.2 (0-0.7) k/uL Basophils # 0.0 (0-0.2) k/uL PT 10.9 (9.0-12.0) sec INR 1.0 (<1.2) APTT 23.5 (22.0-30.0) sec Sodium (137-145) mmol/L Potassium (3.5-5.1) mmol/L Chloride (98-107) mmol/L Carbon Dioxide (22-30) mmol/L Anion Gap mmol/L BUN (9-20) mg/dL Creatinine (0.66-1.25) mg/dL Est GFR (CKD-EPI)AfAm (>60 ml/min/1.73 sqM) Est GFR (CKD-EPI)NonAf (>60 ml/min/1.73 sqM) Glucose (74-99) mg/dL Lactic Ac Sepsis Rflx Plasma Lactic Acid Khurram (0.7-2.0) mmol/L Calcium (8.4-10.2) mg/dL Total Bilirubin (0.2-1.3) mg/dL AST (17-59) U/L ALT (4-49) U/L Alkaline Phosphatase (38-126) U/L Total Protein (6.3-8.2) g/dL Albumin (3.5-5.0) g/dL Amylase (30-110) U/L Lipase (23-300) U/L Urine Color Light Yellow Urine Appearance Clear (Clear) Urine pH 7.0 (5.0-8.0) Ur Specific Maynard 1.007 (1.001-1.035) Urine Protein Negative (Negative) Urine Glucose (UA) Negative (Negative) Urine Ketones 1+ H (Negative) Urine Blood Large H (Negative) Urine Nitrite Negative (Negative) Urine Bilirubin Negative (Negative) Urine Urobilinogen <2.0 (<2.0) mg/dL Ur Leukocyte Esterase Negative (Negative) Urine RBC 67 H (0-5) /hpf Urine WBC 1 (0-5) /hpf Urine Mucus Rare H (None) /hpf 01/30/23 01/30/23 01/30/23 Range/Units 13:34 13:34 14:19 WBC (3.8-10.6) k/uL RBC (4.30-5.90) m/uL Hgb (13.0-17.5) gm/dL Hct (39.0-53.0) % MCV (80.0-100.0) fL MCH (25.0-35.0) pg MCHC (31.0-37.0) g/dL RDW (11.5-15.5) % Plt Count (150-450) k/uL MPV Neutrophils % % Lymphocytes % % Monocytes % % Eosinophils % % Basophils % % Neutrophils # (1.3-7.7) k/uL Lymphocytes # (1.0-4.8) k/uL Monocytes # (0-1.0) k/uL Eosinophils # (0-0.7) k/uL Basophils # (0-0.2) k/uL PT (9.0-12.0) sec INR (<1.2) APTT (22.0-30.0) sec Sodium 141 (137-145) mmol/L Potassium 3.5 (3.5-5.1) mmol/L Chloride 107 (98-107) mmol/L Carbon Dioxide 24 (22-30) mmol/L Anion Gap 10 mmol/L BUN 31 H (9-20) mg/dL Creatinine 1.23 (0.66-1.25) mg/dL Est GFR (CKD-EPI)AfAm 70 (>60 ml/min/1.73 sqM) Est GFR (CKD-EPI)NonAf 61 (>60 ml/min/1.73 sqM) Glucose 108 H (74-99) mg/dL Lactic Ac Sepsis Rflx Y Plasma Lactic Acid Khurram 2.1 H* (0.7-2.0) mmol/L Calcium 9.0 (8.4-10.2) mg/dL Total Bilirubin 0.6 (0.2-1.3) mg/dL AST 23 (17-59) U/L ALT 20 (4-49) U/L Alkaline Phosphatase 61 (38-126) U/L Total Protein 6.6 (6.3-8.2) g/dL Albumin 4.1 (3.5-5.0) g/dL Amylase 54 (30-110) U/L Lipase 68 (23-300) U/L Urine Color Urine Appearance (Clear) Urine pH (5.0-8.0) Ur Specific Maynard (1.001-1.035) Urine Protein (Negative) Urine Glucose (UA) (Negative) Urine Ketones (Negative) Urine Blood (Negative) Urine Nitrite (Negative) Urine Bilirubin (Negative) Urine Urobilinogen (<2.0) mg/dL Ur Leukocyte Esterase (Negative) Urine RBC (0-5) /hpf Urine WBC (0-5) /hpf Urine Mucus (None) /hpf 01/30/23 Range/Units 16:30 WBC (3.8-10.6) k/uL RBC (4.30-5.90) m/uL Hgb (13.0-17.5) gm/dL Hct (39.0-53.0) % MCV (80.0-100.0) fL MCH (25.0-35.0) pg MCHC (31.0-37.0) g/dL RDW (11.5-15.5) % Plt Count (150-450) k/uL MPV Neutrophils % % Lymphocytes % % Monocytes % % Eosinophils % % Basophils % % Neutrophils # (1.3-7.7) k/uL Lymphocytes # (1.0-4.8) k/uL Monocytes # (0-1.0) k/uL Eosinophils # (0-0.7) k/uL Basophils # (0-0.2) k/uL PT (9.0-12.0) sec INR (<1.2) APTT (22.0-30.0) sec Sodium (137-145) mmol/L Potassium (3.5-5.1) mmol/L Chloride (98-107) mmol/L Carbon Dioxide (22-30) mmol/L Anion Gap mmol/L BUN (9-20) mg/dL Creatinine (0.66-1.25) mg/dL Est GFR (CKD-EPI)AfAm (>60 ml/min/1.73 sqM) Est GFR (CKD-EPI)NonAf (>60 ml/min/1.73 sqM) Glucose (74-99) mg/dL Lactic Ac Sepsis Rflx Plasma Lactic Acid Khurram 1.0 (0.7-2.0) mmol/L Calcium (8.4-10.2) mg/dL Total Bilirubin (0.2-1.3) mg/dL AST (17-59) U/L ALT (4-49) U/L Alkaline Phosphatase (38-126) U/L Total Protein (6.3-8.2) g/dL Albumin (3.5-5.0) g/dL Amylase (30-110) U/L Lipase (23-300) U/L Urine Color Urine Appearance (Clear) Urine pH (5.0-8.0) Ur Specific Maynard (1.001-1.035) Urine Protein (Negative) Urine Glucose (UA) (Negative) Urine Ketones (Negative) Urine Blood (Negative) Urine Nitrite (Negative) Urine Bilirubin (Negative) Urine Urobilinogen (<2.0) mg/dL Ur Leukocyte Esterase (Negative) Urine RBC (0-5) /hpf Urine WBC (0-5) /hpf Urine Mucus (None) /hpf - EKG Data EKG Comments: 12-lead Electrocardiogram Interpretation Note EKG was reviewed and interpreted by myself. 12-lead ECG performed at 1327 is interpreted by me as revealing normal sinus rhythm at a rate of 76 beats per minute. Left axis deviation. OR interval is 235 ms with first-degree AV block, QRS duration is 105 ms, a GC is 446 ms.. There were no acute ST or T wave abnormalities to suggest myocardial ischemia or injury. Chronic PVCs present. R wave progression across the precordium was satisfactory. By my interpretation this EKG is non-diagnostic for acute ischemia. EKG similar to prior EKG from December 2022. (Duy Whaley) Disposition <Duy Whaley - Last Filed: 01/30/23 15:13> Is patient prescribed a controlled substance at d/c from ED?: No Time of Disposition: 18:00 <Vivek Ortega - Last Filed: 01/30/23 19:13> Clinical Impression: Calculus of kidney, Hydronephrosis, Right ureteral stone Disposition: HOME SELF-CARE Condition: Good Instructions (If sedation given, give patient instructions): Kidney Stones (ED) Prescriptions: Tamsulosin [Flomax] 0.4 mg PO DAILY #7 cap Referrals: Zheng Velazquez MD [Primary Care Provider] - 1-2 days Tony Castillo MD [STAFF PHYSICIAN] - 1-2 days
[2023-01-30 14:06] LABS: Albumin 4.1 g/dL (3.5-5.0); Potassium 3.5 mmol/L (3.5-5.1); Total Bilirubin 0.6 mg/dL (0.2-1.3); Total Protein 6.6 g/dL (6.3-8.2)
[2023-01-30 14:32] LABS: Appearance,Urine Clear (Clear); Bilirubin,Urine Negative (Negative); Blood,Urine Large (Negative); Color,Urine Light Yellow; Glucose,Urine (UA) Negative (Negative); Ketones,Urine 1+ (Negative); Leukocyte Esterase,Urine Negative (Negative); Mucus,Urine Rare /hpf; Nitrite,Urine Negative (Negative); Protein,Urine Negative (Negative); RBC,Urine 67 /hpf (0-5); Specific Gravity,Urine 1.007 (1.001-1.035); Urobilinogen,Urine <2.0 mg/dL (<2.0); WBC,Urine 1 /hpf (0-5)
[2023-01-30 14:37] VITALS: PULSE 70
--- NOTE | 2023-01-30 14:37 | XR ---
EXAMINATION TYPE: XR KUB DATE OF EXAM: 01/30/2023 2:15 PM INDICATION: Patient age:Male; 67 years old; Reason for study: abdominal pain; COMPARISON: 01/01/2023 TECHNIQUE: One radiographic view of the abdomen was obtained. FINDINGS: The bowel gas pattern is nonspecific without dilated loops of small or large bowel. There i s no evidence for organomegaly or pneumoperitoneum. The osseous structures are intact. No abnormal calcifications are present. Fecal material and gas are demonstrated throughout the colon and rectum. IMPRESSION: Nonspecific bowel gas pattern without radiographic evidence for acute process.
--- NOTE | 2023-01-30 16:05 | US ---
EXAMINATION TYPE: US kidneys/renal and bladder DATE OF EXAM: 01/30/2023 COMPARISON: CT, US CLINICAL HISTORY: right flank pain. Right flank pain. EXAM MEASUREMENTS: Right Kidney: 11.8 x 6.6 x 5.8 cm Left Kidney: 11.6 x 5.8 x 5.5 cm Right Kidney: -Two complex/septated areas seen upper pole, largest measures: 4.2 x 3.6 x 4.2 cm. -Anechoic area seen lower pole: 4.2 x 4.4 x 3.8 cm. Left Kidney: Limited visibility. Appearance of minimal hydronephrosis. *2 Hyperechoic foci seen, larger is at the lower pole: 0.5 cm. -Anechoic area seen laterally at mid: 7.7 x 7.7 x 5.4 cm. -Complex/septated area seen medially at mid: 5.8 x 5.5 x 3.4 cm. Bladder: wnl Bilateral Jets seen: Left jet seen during exam. IMPRESSION: 1. Complex cysts right kidney. 2. Borderline hydronephrosis left kidney with nephrolithiasis.
--- NOTE | 2023-01-30 17:20 | CT ---
EXAMINATION TYPE: CT abdomen pelvis wo con CT DLP: 628.1 mGycm, Automated exposure control for dose reduction was used. DATE OF EXAM: 01/30/2023 4:53 PM COMPARISON: CT abdomen pelvis most recent from 01/05/2023. CLINICAL INDICATION:Male, 67 years old with history of pain; flank pain, hx of stones TECHNIQUE: Axial CT of the abdomen and pelvis. Sagittal and coronal reformats were created on a [employer] workstation. Contrast used: None Oral contrast used: without Oral Contrast FINDINGS: LOWER CHEST: The heart is mildly enlarged for size. There is mild coronary artery calcifications. ABDOMEN LIVER: Unremarkable GALLBLADDER AND BILE DUCTS: Unremarkable. PANCREAS: Unremarkable. SPLEEN: Unremarkable. ADRENAL GLANDS: Unremarkable. KIDNEYS AND URETERS: Increased density in the distal right ureter at the ileocecal junction measuring 4 mm with upstream dilation of the ureter and right renal sinus dilation. There may be more than one calculus in the distal right ureter. Multiple right renal cysts and right perinephric fat stranding are present. The left kidney demonstrates multiple renal calculi largest measuring up to 7 mm. Is greater than 10 calculi on the left. Multiple left-sided renal cysts are present. No obstructive uropathy in the left . PELVIS BLADDER: Unremarkable REPRODUCTIVE: Unremarkable. ABDOMEN & PELVIS STOMACH AND BOWEL: No evidence of bowel obstruction. PERITONEUM/RETROPERITONEUM: No evidence of pneumoperitoneum or free fluid. VASCULATURE: Mild atherosclerotic calcifications are present throughout the abdominal aorta and its b ranches. No evidence of aortic aneurysm. MUSCULOSKELETAL: No acute osseous abnormalities. Mild disc degeneration changes are present throughou t the thoracolumbar spine. LYMPH NODES: No gross evidence for lymphadenopathy. SOFT TISSUE/ABDOMINAL WALL: Fat-containing umbilical hernia. IMPRESSION: 1. Mild right hydronephrosis secondary to distal right ureteral pelvic junction calculi. 2. Nonobstructing left renal calculi. (Greater than 10) 3. Bilateral renal cysts as seen on prior imaging.
[2023-01-30] MEDS ORDERED: traMADol 50 MG STARTER PACK 3 TAB BTL PO STA (18:09)
[2023-01-30] MEDS ORDERED: IBUPROFEN 600 MG STARTER PACK 4 TAB BTL PO STA (18:09)
[2023-01-30] MEDS ORDERED: ONDANSETRON 4 MG ODT STARTER PACK 2 TAB BTL PO STA (18:09)
[2023-01-30] MEDS ORDERED: TAMSULOSIN 0.4 MG CAP.ER.24H PO STA (18:09)
[2023-01-30] MEDS ORDERED: ACET/COD 300 MG/30 MG STARTER PACK 6 TAB BTL PO STA (18:09)
[2023-01-30 18:23] VITALS: BP 141/78; RESP 18
== END 2023-01-30 19:27 | disposition home or self-care (01) ==
LOC: EC 13:10
DX: N13.2 Hydronephrosis with renal and ureteral calculous obstruction (principal); I10 Essential (primary) hypertension; Z88.1 Allergy status to other antibiotic agents; Z88.2 Allergy status to sulfonamides; Z88.8 Allergy status to other drugs, medicaments and biological substances; Z79.899 Other long term (current) drug therapy
CPT/HCPCS: 36415; 93005; 80053; 82150; 83605; 83690; 85025; 85610; 85730; 81001; 74018; 76770; 74176; 99285; 96374; 96375 ×3; 96376; 96361 ×2; J2405; J1170; J1885; S0119; C9113

== ENCOUNTER → 2023-02-16 | Outpatient (CLI) | payer OTHER, MEDICARE ==
[2023-02-16 20:05] LABS: African American GFR (CKD) 47.3 (60.0-200.0); Anion Gap 10.1 mmol/L (10.00-18.00); BUN/Creat Ratio 18.76 Ratio (12.00-20.00); Blood Urea Nitrogen 31.9 mg/dL (9.0-27.0); Calcium 9.5 mg/dL (8.7-10.3); Carbon Dioxide 28.9 mmol/L (20.0-27.5); Non-African American GFR(CKD) 40.8 (60.0-200.0); Potassium 4.1 mmol/L (3.5-5.5)
[2023-02-16 21:12] LABS: Appearance,Urine Clear (Clear); Bilirubin,Urine Negative (Negative); Blood,Urine Trace (Negative); Color,Urine Yellow (Yellow); Ketones,Urine Trace mg/dL (Negative); Nitrite,Urine Negative (Negative); PH, Urine 5.5 (5.0-8.0); Specific Gravity,Urine 1.022 (1.001-1.030); Urobilinogen,Urine 0.2 (0.2,1.0)
[2023-02-16 22:59] LABS: Bacteria,Urine None Seen /HPF (None Seen); Uric Acid Crystals,Urine Present /LPF (None Seen)
[2023-02-16 23:06] LABS: HCT 41.4 % (39.6-50.0); MCH 29.3 pg (27.0-32.0); MCHC 33.8 g/dL (32.0-37.0); MCV 86.6 fL (80.0-97.0); Mean Platelet Volume 11.5 fL (9.5-12.2); NRBC Per 100 WBC 0 /100 WBCS (0.0-0.0); Platelet Count 214 X 10*3/uL (140-440); RBC 4.78 X 10*6/uL (4.40-5.60); RDW 12.5 % (11.5-14.5); WBC 6.09 X 10*3/uL (4.50-10.00)
== END | disposition home or self-care (01) ==
LOC: LABPAT 14:02
PROVIDERS: ATTEND Urology
DX: Z01.812 Encounter for preprocedural laboratory examination (principal); N20.0 Calculus of kidney; R31.29 Other microscopic hematuria
CPT/HCPCS: 80048; 81001; 85027; 87086

== ENCOUNTER 2023-02-28 06:49 | Day surgery (SDC) | payer MEDICARE, OTHER ==
--- NOTE | 2023-02-27 19:27 | P.GSHP ---
History of Present Illness H&P Date: 02/27/23 67 yo patient with a history of stones. He recently passed one on the right. He has multiple small left renal stones.. He wants these treated. He comes for left ureterorenoscopy with laser lithotripsy and possible stent. Alternatives have been discussed. - Constitutional Constitutional: Denies chills, Denies fever - EENT Eyes: denies blurred vision, denies pain Ears, nose, mouth and throat: Denies headache, Denies sore throat - Cardiovascular Cardiovascular: Denies chest pain, Denies shortness of breath - Respiratory Respiratory: Denies cough, Denies 7 - Gastrointestinal Gastrointestinal: Denies abdominal pain, Denies diarrhea, Denies nausea, Denies vomiting - Genitourinary (Female) Genitourinary: Denies dysuria, Denies hematuria - Genitourinary (Male) Genitourinary: Denies dysuria, Denies hematuria - Musculoskeletal Musculoskeletal: Denies myalgias - Integumentary Integumentary: Denies pruritus, Denies rash - Neurological Neurological: Denies numbness, Denies weakness - Psychiatric Psychiatric: Denies anxiety, Denies depression - Endocrine Endocrine: Denies fatigue, Denies weight change Past Medical History Past Medical History: Hypertension, Osteoarthritis (OA) Additional Past Medical History / Comment(s): hx kidney stones, ascending aortic aneurysm(Dr Dacosta monitors), hx migraines, recent chemical stress test caused pt to have a rash from injection site up his trunk.was seen in ER, Arthritis in fingers, irregular heart beat recently-following w/Dr Dacosta, will get holter monitor soon History of Any Multi-Drug Resistant Organisms: None Reported Past Surgical History: Heart Catheterization, Hernia Repair, Orthopedic Surgery, Tonsillectomy Additional Past Surgical History / Comment(s): lithotripsy x 5 times; macular pucker surgery rt eye, inguinal hernia, rt hand ganglion cyst, rt foot toe /pinned, left foot surgery,cataract rt eye, nasal surgery, heart cath Past Anesthesia/Blood Transfusion Reactions: Motion Sickness, Postoperative Nausea & Vomiting (PONV) Additional Past Anesthesia/Blood Transfusion Reaction / Comment(s): hx nausea after lithotripsy Smoking Status: Never smoker - Past Family History Mother Family Medical History: Cancer Additional Family Medical History / Comment(s): . Father Additional Family Medical History / Comment(s): rheumatic fever when young. Father at age 86 from old age. Sister(s) Additional Family Medical History / Comment(s): Patient has one sister that from some type of myelodysplastic disorder Daughter(s) Family Medical History: No Reported History Additional Family Medical History / Comment(s): . Medications and Allergies Home Medications Medication Instructions Recorded Confirmed Type Metoprolol Succinate (ER) [Toprol 25 mg PO DAILY 12/10/18 02/26/23 History XL] Chlorthalidone [Hygroton] 25 mg PO DAILY 09/15/22 02/26/23 History Losartan [Cozaar] 25 mg PO HS 09/15/22 02/26/23 History EPINEPHrine (Auto Inject) [Epipen] 0.3 mg IM ONCE PRN #2 each 10/02/22 02/26/23 Rx ALPRAZolam [Xanax] 0.25 mg PO DAILY PRN 01/01/23 02/26/23 History Cyclobenzaprine [Flexeril] 10 mg PO DAILY PRN 01/01/23 02/26/23 History Meclizine [Antivert] 25 mg PO TID PRN 01/01/23 02/26/23 History Allergies Allergy/AdvReac Type Severity Reaction Status Date / Time regadenoson [From Lexiscan] Allergy Rash/Hives Verified 02/26/23 14:37 sulfamethoxazole Allergy Rash/Hives Verified 02/26/23 14:37 [From Bactrim] trimethoprim [From Bactrim] Allergy Rash/Hives Verified 02/26/23 14:37 Surgical - Exam - General well developed, well nourished, no distress - Eyes normal ocular movement, no icteric - ENT no hearing loss, no congestion - Neck no masses, trachea midline - Respiratory normal respiratory effort, clear to auscultation - Abdomen Abdomen: soft, non tender, no guarding, no rigid, no rebound - Integumentary no rash, no abnormal pigmentation - Neurologic no disoriented, no combative - Psychiatric oriented to time, oriented to person, oriented to place, speech is normal, memory intact Results - Imaging Abdominal x-ray: report reviewed, image reviewed CT scan - abdomen: report reviewed, image reviewed CT scan - pelvis: report reviewed, image reviewed Assessment and Plan Assessment: Impression: left renal stones.HTN Plan Left ureteroscopy with laser lithotripsy and possible stent
--- NOTE | 2023-02-28 07:22 | XR ---
EXAMINATION TYPE: XR KUB DATE OF EXAM: 02/28/2023 INDICATION: Patient age:Male; 67 years old; Reason for study: N20.0 left renal stone; COMPARISON: CT abdomen and pelvis 01/30/2023, KUB radiograph 01/30/2023. TECHNIQUE: 2 frontal views of the abdomen were obtained. FINDINGS: The bowel gas pattern is nonspecific without dilated loops of small or large bowel. There i s no evidence for organomegaly or pneumoperitoneum. The osseous structures are intact. Left inferior pole renal calculus measuring up to 1.[address] Fecal material and gas are de monstrated throughout the colon and rectum. IMPRESSION: Left inferior pole 1.1 cm renal calculus.
[2023-02-28] MEDS ORDERED: DEXAMETHASONE SOD PHOSPHATE 4 MG/ML 1 ML VIAL IV ONE (07:36)
[2023-02-28] MEDS ORDERED: MIDAZOLAM 2 MG/2 ML VIAL IV PRN (07:36)
[2023-02-28] MEDS ORDERED: ONDANSETRON 4 MG/2 ML VIAL IVP ONE (07:36)
[2023-02-28] MEDS: LACTATED RINGERS 1,000 ML IV SCH ×2 (07:38→08:50)
[2023-02-28] MEDS ORDERED: LIDOCAINE 2% INJ 20 MG/ML (2 ML VIAL) ONE (08:47)
[2023-02-28] MEDS ORDERED: KETOROLAC 15 MG/ML 1 ML VIAL ONE (08:47)
[2023-02-28] MEDS ORDERED: ePHEDrine 50 MG/ML 1 ML VIAL ONE (08:47)
[2023-02-28] MEDS ORDERED: ROCURONIUM 10 MG/ML (5 ML VIAL) IV ONE (08:47)
[2023-02-28] MEDS ORDERED: fentaNYL (PF) 50 MCG/ML 2 ML AMP ONE (08:47)
[2023-02-28] MEDS ORDERED: SUCCINYLCHOLINE CHLORIDE 200 MG/10 ML VIAL IV ONE (08:47)
[2023-02-28] MEDS ORDERED: PROPOFOL 10 MG/ML 20 ML VIAL IV ONE (08:47)
[2023-02-28] MEDS ORDERED: MIDAZOLAM 2 MG/2 ML VIAL ONE (08:47)
[2023-02-28] MEDS ORDERED: LACTATED RINGERS 1,000 ML IV ONE (09:40)
--- NOTE | 2023-02-28 10:08 | P.OP ---
Date of Procedure: 02/28/23 Preoperative Diagnosis: Left renal stones Postoperative Diagnosis: Same Procedure(s) Performed: Cystoscopy, left ureteroscopy with laser lithotripsy, stone basketing, placement of [id number] stent Anesthesia: JARONA Surgeon: Epi Chase Estimated Blood Loss (ml): 0 Pathology: other (Stone) Condition: stable Disposition: PACU Indications for Procedure: Patient is 67. He has active urolithiasis. He recently passed a right ureteral stone. He has left renal stones. We discussed percutaneous versus laser lithotripsy through the ureter. He comes for the latter. Description of Procedure: Patient brought to the operative suite. Given general anesthesia. Placed on the operating table in a supine position. Given a general anesthetic. Placed in lithotomy position with a sterile prep and drape. Cystoscopy Foroblique lens and 21-Belarusian sheath identifies a normal anterior urethra. The prostatic urethra is minimally obstructing. The bladder self unremarkable. Both ureteral orifices are normal. Through the left ureteral orifice and with 35 wires passed up into the kidney. The cystoscope was removed. Over the wires passed [id number] reentry sheath up to the proximal left ureter. Through the access sheath a flexible ureteroscope passed up into the left kidney. I go through each calyx. I can see stones behind the renal papilla. In the lower pole calyx there are several tones between 3 and 10 mm. With [id number] laser probe the stones are dusted into very small fragments. The majority of this is flushed out. I basket some of the larger fragments for stone analysis. Through the access sheath into 35 wire is passed up into the left kidney. The access sheath is removed. The wires backloaded onto the cystoscope. Over the wires passed a 6 x 26 double-J catheter that coils in the left renal pelvis and in the bladder the bladder is drained the patient is awakened and returned recovery room in will be discharged home upon her covered. His condition is good. Blood loss is minimal.
--- NOTE | 2023-02-28 10:17 | FL ---
Intraoperative/procedural fluoroscopic services were provided for left ureteral stent placement. Tota l fluoroscopy time is 18 seconds with a total of 3 submitted images to PACS. Total DAP 2.8833 Gycm2. Please see the operative note for further details.
[2023-02-28 10:21] VITALS: TEMP 97
[2023-02-28 11:17] VITALS: BP 160/86; PULSE 64; RESP 18
[2023-02-28] MEDS ORDERED: HYDROcodone/APAP 5-325MG 1 EACH TAB ONE (11:24)
[2023-02-28] MEDS ORDERED: HYDROcodone/APAP 5-325MG 1 EACH TAB PO ONE (11:30)
[2023-03-01] MEDS ORDERED: HYDROmorphone 0.5 MG/0.5 ML SYRINGE IVP PRN (07:00)
== END 2023-02-28 12:12 | disposition home or self-care (01) ==
LOC: OR 06:49
PROVIDERS: ATTEND Urology
DX: N20.0 Calculus of kidney (principal); I10 Essential (primary) hypertension; K91.0 Vomiting following gastrointestinal surgery; M19.90 Unspecified osteoarthritis, unspecified site; Z95.5 Presence of coronary angioplasty implant and graft; Z98.890 Other specified postprocedural states; Z90.89 Acquired absence of other organs; Z98.41 Cataract extraction status, right eye; Z80.8 Family history of malignant neoplasm of other organs or systems; Z79.899 Other long term (current) drug therapy; Z88.2 Allergy status to sulfonamides; Z88.1 Allergy status to other antibiotic agents; Z88.8 Allergy status to other drugs, medicaments and biological substances
CPT/HCPCS: 52356; 82365; 74018; C1769; J2250; J0330; J1100; J0690; J2405; J3010; J1885; J2704; J2001

== ENCOUNTER 2023-09-04 08:35 | Day surgery (SDC) | payer MEDICARE, OTHER ==
[2023-08-30 10:41] VITALS: BMI 27.2
[2023-09-04] MEDS: SODIUM CHLORIDE 0.9% 1,000 ML IV SCH (08:55)
[2023-09-04] MEDS ORDERED: LIDOCAINE 1% INJ 10MG/ML (20 ML MDV) ONE ×2 (10:54→12:04)
[2023-09-04] MEDS ORDERED: fentaNYL (PF) 50 MCG/ML 2 ML AMP ONE (11:05)
[2023-09-04] MEDS ORDERED: diphenhydrAMINE 50 MG/ML 1 ML VIAL ONE (11:05)
[2023-09-04] MEDS ORDERED: PROPOFOL 10 MG/ML 20 ML VIAL IV ONE (11:05)
[2023-09-04] MEDS ORDERED: ONDANSETRON 4 MG/2 ML VIAL ONE (11:05)
[2023-09-04] MEDS ORDERED: DEXAMETHASONE SOD PHOSPHATE 4 MG/ML 1 ML VIAL ONE (11:05)
[2023-09-04] MEDS ORDERED: MIDAZOLAM 2 MG/2 ML VIAL ONE (11:05)
[2023-09-04] MEDS ORDERED: HEPARIN SODIUM,PORCINE 10,000 UNIT/ML 1 ML VIAL ONE (11:05)
[2023-09-04] MEDS ORDERED: LIDOCAINE 2% URO-JET JELLY 5 ML KIT ONE (11:18)
[2023-09-04 11:47] LABS: ALT 18 U/L (4-49); AST 24 U/L (17-59); African American GFR (CKD) 79 (>60 ml/min/1.73 sqM); Albumin 4.6 g/dL (3.5-5.0); Alkaline Phosphatase 60 U/L (38-126); Anion Gap 9 mmol/L; Blood Urea Nitrogen 31 mg/dL (9-20); Calcium 9.4 mg/dL (8.4-10.2); Carbon Dioxide 32 mmol/L (22-30); Chloride 99 mmol/L (98-107); Glucose 101 mg/dL (74-99); Non-African American GFR(CKD) 68 (>60 ml/min/1.73 sqM); Potassium 3.6 mmol/L (3.5-5.1); Sodium 140 mmol/L (137-145); Total Bilirubin 1.2 mg/dL (0.2-1.3); Total Protein 7.4 g/dL (6.3-8.2)
[2023-09-04] MEDS ORDERED: LIDOCAINE 1% INJ 10MG/ML (20 ML MDV) SQ ONE ×3 (11:57→13:29)
[2023-09-04] MEDS ORDERED: HEPARIN SOD,PORK IN 0.45% NACL 25,000 UNIT in 0.45% NACL 1 250ML.BAG IV ONE (12:05)
[2023-09-04] MEDS ORDERED: IOPAMIDOL-370 100ML BTL INJ ONE ×2 (12:05)
[2023-09-04] MEDS ORDERED: HEPARIN SODIUM (1,000 UNIT/ML) 1,000 UNIT in SODIUM CHLORIDE 0.9% 1,000 ML IRRIGATION ONE (14:56)
[2023-09-04] MEDS ORDERED: ACETAMINOPHEN TAB 325 MG TAB PO PRN (17:09)
[2023-09-04] MEDS ORDERED: ACETAMINOPHEN IV (For NPO) 1,000 MG in EMPTY BAG 1 BAG IVPB ONE (17:09)
[2023-09-04] MEDS ORDERED: ALPRAZolam 0.25 MG TAB PO PRN (17:12)
--- NOTE | 2023-09-04 17:26 | P.HPCAR ---
History of Present Illness This is Dr. 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 There are at least 3 different PVC morphology noted his PVC burden ranges from 20--36 percent He denies any fever chills cough expectoration line he did have a dizzy spell while coming out of a hot tub but did not pass out. His blood pressure is low at that time He continues to have palpitations ROS: No fever chills or rigors, no cough, phlegm or expectoration, no nausea, vomiting or diarrhea, no hematuria, dysuria, no musculoskeletal complaints, no strokes or seizures, no skin lesions. EXAMINATION: Afebrile 97% degrees Fahrenheit pulse rate in the 60s Irregular rhythm, premature beats on clinical exam Rita lungs no rhonchi no crackles Normal neck exam No JVD No lower extremity edema Soft abdomen REVIEW OF LABS, ECG & MEDICAL DATA Sodium 140, potassium 3.6, BUN 31 creatinine 1.1 AST 24 and ALT 18 9 TSH 1.6 Physical Exam Vitals: Vital Signs Temp Pulse Resp BP Pulse Ox 09/04/23 09:02 97.7 F 68 16 185/93 100 Intake and Output 09/04/23 09/04/23 09/04/23 06:59 14:59 22:59 Intake Total 1348 Output Total 500 Balance 1348 -500 Intake: IV 1348 Output: Urine 500 Other: Weight 85.6 kg Past Medical History Past Medical History: Hypertension Additional Past Medical History / Comment(s): hx kidney stones, ascending aortic aneurysm(Dr Dacosta monitors), hx migraines, stress test results - questionable. recent chemical stress test caused pt to have a rash from injection site up his trunk.was seen in ER. Arthritis in fingers History of Any Multi-Drug Resistant Organisms: None Reported Past Surgical History: Heart Catheterization, Hernia Repair, Orthopedic Surgery, Tonsillectomy Additional Past Surgical History / Comment(s): lithotripsy x 6 times; macular pucker surgery rt eye, inguinal hernia, rt hand ganglion cyst, rt foot toe /pinned, left foot surgery,cataract rt eye, nasal surgery, Past Anesthesia/Blood Transfusion Reactions: Motion Sickness, Postoperative Nausea & Vomiting (PONV) Additional Past Anesthesia/Blood Transfusion Reaction / Comment(s): hx nausea after lithotripsy Smoking Status: Never smoker - Past Family History Mother Family Medical History: Cancer Additional Family Medical History / Comment(s): . Father Additional Family Medical History / Comment(s): rheumatic fever when young. Father at age 86 from old age. Sister(s) Additional Family Medical History / Comment(s): Patient has one sister that from some type of myelodysplastic disorder Daughter(s) Family Medical History: No Reported History Additional Family Medical History / Comment(s): . Physical Examination Vital Signs Temp Pulse Resp BP Pulse Ox 09/04/23 09:02 97.7 F 68 16 185/93 100 Intake and Output 09/04/23 09/04/23 09/04/23 06:59 14:59 22:59 Intake Total 1348 Output Total 500 Balance 1348 -500 Intake: IV 1348 Output: Urine 500 Other: Weight 85.6 kg Results 09/04/23 11:14 Cardiac Enzymes 09/04/23 Range/Units 11:14 AST 24 (17-59) U/L Comprehensive Metabolic Panel 09/04/23 Range/Units 11:14 Sodium 140 (137-145) mmol/L Potassium 3.6 (3.5-5.1) mmol/L Chloride 99 (98-107) mmol/L Carbon Dioxide 32 H (22-30) mmol/L BUN 31 H (9-20) mg/dL Creatinine 1.11 (0.66-1.25) mg/dL Glucose 101 H (74-99) mg/dL Calcium 9.4 (8.4-10.2) mg/dL AST 24 (17-59) U/L ALT 18 (4-49) U/L Alkaline Phosphatase 60 (38-126) U/L Total Protein 7.4 (6.3-8.2) g/dL Albumin 4.6 (3.5-5.0) g/dL Current Medications Generic Name Dose Route Start Last Admin Trade Name Freq PRN Reason Stop Dose Admin Acetaminophen 650 mg 09/04/23 17:09 Acetaminophen Tab 325 Mg Tab PO Q6HR PRN Mild Pain (Scale 1 to 3) Alprazolam 0.25 mg 09/04/23 17:12 Alprazolam 0.25 Mg Tab PO DAILY PRN Anxiety Aspirin 325 mg 09/04/23 17:30 Aspirin 325 Mg Tab PO DAILY LEANNE Sodium Chloride 1,000 mls @ 20 mls/hr 09/04/23 05:59 09/04/23 08:55 Saline 0.9% IV 10/04/23 06:00 700 mls .Q24H LEANNE Administration Losartan Potassium 25 mg 09/04/23 21:00 Losartan 25 Mg Tab PO HS LEANNE Sodium Chloride 12 ml 09/04/23 17:09 Sodium Chloride 0.9% Flush 10 Ml Syringe IV Q12HR PRN Line Flush Intake and Output 09/04/23 09/04/23 09/04/23 06:59 14:59 22:59 Intake Total 1348 Output Total 500 Balance 1348 -500 Intake: IV 1348 Output: Urine 500 Other: Weight 85.6 kg Patient Weight 09/05/23 06:59 Weight 85.6 kg 09/04/23 11:14
--- NOTE | 2023-09-04 18:18 | P.EPPROC ---
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 No true posterior lateral or lateral coronary vein Mapping of the left ventricle Successful ablation of PVC 1: R/S morphology in lead 1, predominantly negative in the inferior leads and an atypical right bundle branch block pattern in V1 Successful ablation of PVC 2: rS morphology in lead 1, upright in the inferior leads, right bundle branch block like pattern PVC 3 had features of epicardial focus with delta waves like configuration in the inferior leads as well as the precordial leads. This PVC was not mapped Details Patient was brought to the EP lab in a fasting state. Written informed consent was obtained prior to the procedure. Mild conscious sedation provided It is noted that the patient had frequent PVCs of at least 3 different morphologies With deeper sedation he was experiencing less PVCs therefore sedation level was lightened to facilitate mapping The daughter feels the left upper extremity was performed and a patent left axillary and subclavian venous system was noted A 9-Bruneian venous sheath was placed in the left axillary vein A coronary sinus catheter was placed in the coronary sinus Along coronary sinus sheath was placed Coronary sinus venogram was performed. 2 large anterolateral veins were noted and a large tortuous middle cardiac vein noted No posterior lateral vein and no true lateral vein noted Epicardial mapping of the sunny lateral vein performed for PVC 2 Mapping of the middle cardiac vein performed for PVC 1 For both PVCs the activation was not early in either vein Coronary sinus catheter was then placed in the mean body for diagnostic EP study 8-Bruneian sheaths were placed in the left femoral vein, 2 sheaths The right femoral artery was accessed and an 8-Bruneian sheath was placed. Later a long sheath was used to provide support in the dilated aortic root, to facilitate entry across the aortic valve, into the left ventricle A Pentaray catheter was placed in the left ventricle Mapping of PVC 1 and subsequently mapping of PVC to was performed PVC 1 was mapped to the inferior wall Excellent unipolar signals, very early were noted Pace mapping and activation mapping was performed and was concordant Excellent. Pap smear obtained RF ablation was applied up to 40 W of power was used Successful ablation and near complete elevation of the PVCs was noted PVC 2 was mapped to the high lateral wall excellent unipolar signals during activation mapping were noted The pacemaker also corresponded to this site With mechanical pressure the PVCs would disappear RF ablation to 40 W was performed During ablation ventricular tachycardia of the same morphology as the PVC 2 was noted, with gradual prolongation of the cycle length and then termination However intermittently the patient still have PVCs of this morphology and repeat mapping was performed and RF ablation applied Even though the surface ECG morphology did not suggest a day focus, mapping and ablation suggested a deeper focus However a significant reduction in the PVC burden was noted The third PVC had a high MDI and was consistent with an epicardial focus and was not mapped This is a long procedure lasting greater than 5-1/2 hours involving mapping of the coronary veins sequentially followed by mapping of the left ventricle Crossing the aortic valve was difficult on account of the aortic root dilation and for support a long sheath had to be used A Pentaray catheter was first used for mapping This is followed by the RF ablation catheter used for mapping
[2023-09-04] MEDS: ASPIRIN 325 MG TAB PO SCH (18:31)
[2023-09-04 19:40] LABS: African American GFR (CKD) >90 (>60 ml/min/1.73 sqM); Anion Gap 11 mmol/L; Blood Urea Nitrogen 28 mg/dL (9-20); Calcium 8.9 mg/dL (8.4-10.2); Carbon Dioxide 25 mmol/L (22-30); Chloride 102 mmol/L (98-107); Glucose 178 mg/dL (74-99); Magnesium 1.7 mg/dL (1.6-2.3); Non-African American GFR(CKD) 78 (>60 ml/min/1.73 sqM); Potassium 3.7 mmol/L (3.5-5.1); Sodium 138 mmol/L (137-145)
[2023-09-04] MEDS ORDERED: HYDROcodone/APAP 5-325MG 1 EACH TAB PO PRN (20:17)
[2023-09-04] MEDS ORDERED: MAGNESIUM SULFATE-D5W PMX 1 GM in DEXTROSE/WATER 1 100ML.BAG IVPB ONE (20:18)
[2023-09-04] MEDS: LOSARTAN 25 MG TAB PO SCH (21:12)
[2023-09-05] MEDS: SODIUM CHLORIDE 0.9% 1,000 ML IV SCH (06:58)
[2023-09-05] MEDS: ASPIRIN 325 MG TAB PO SCH (08:59)
[2023-09-05 09:40] LABS: Basophils % (A) 0 %; Eosinophils # (A) 0.1 k/uL (0-0.7); Eosinophils % (A) 0 %; HCT 39.4 % (39.0-53.0); HGB 13.5 gm/dL (13.0-17.5); Lymphocytes # (A) 1.3 k/uL (1.0-4.8); Lymphocytes % (A) 11 %; MCH 29.8 pg (25.0-35.0); MCHC 34.2 g/dL (31.0-37.0); MCV 87.2 fL (80.0-100.0); Mean Platelet Volume 8.9; Monocytes # (A) 0.5 k/uL (0-1.0); Monocytes % (A) 4 %; Neutrophils # (A) 9.5 k/uL (1.3-7.7); Neutrophils % (A) 83 %; Platelet Count 183 k/uL (150-450); RBC 4.52 m/uL (4.30-5.90); RDW 12.6 % (11.5-15.5); WBC 11.4 k/uL (3.8-10.6)
[2023-09-05 10:05] LABS: African American GFR (CKD) 80 (>60 ml/min/1.73 sqM); Anion Gap 10 mmol/L; Blood Urea Nitrogen 31 mg/dL (9-20); Calcium 8.6 mg/dL (8.4-10.2); Carbon Dioxide 25 mmol/L (22-30); Chloride 103 mmol/L (98-107); Glucose 158 mg/dL (74-99); Non-African American GFR(CKD) 69 (>60 ml/min/1.73 sqM); Potassium 3.3 mmol/L (3.5-5.1); Sodium 138 mmol/L (137-145)
[2023-09-05] MEDS: FLECAINIDE 50 MG TAB PO SCH ×2 (10:18→20:10)
[2023-09-05] MEDS: DOCUSATE 100 MG CAP PO PRN ×2 (11:11→20:10)
--- NOTE | 2023-09-05 12:44 | P.PN ---
Subjective HISTORY OF PRESENT ILLNESS: Patient is status post PVC ablation with Dr. Harrison. Patient examined this morning at the bedside. Patient denies chest pain or pressure. He denies shortness of breath. Telemetry reveals sinus mechanism. Patient is having continued PVCs and episodes of bigeminy. PHYSICAL EXAM: VITAL SIGNS: Reviewed. GENERAL: Well-developed in no acute distress. NECK: Supple. No JVD or thyromegaly LUNGS: Respirations even and unlabored. Lungs essentially clear to auscultation bilaterally. HEART: Regular rate and rhythm. S1 and S2 heard. EXTREMITIES: Normal range of motion. No clubbing or cyanosis. Peripheral pulses intact. No lower extremity edema ASSESSMENT: Status post PVC ablation Frequent PVCs overall PVC burden between 22-36% Mild cardiomyopathy ejection fraction 45% Multiple PVCs morphologies Normal coronary arteries PLAN: Continue aspirin 325 mg daily for one month Flecainide 50 mg twice a day Obtain EKG now and again in a.m. Continue telemetry monitoring Continue to monitor patient for an additional 24 hours Anticipate discharge home tomorrow Nurse practitioner note has been reviewed by physician. Signing provider agrees with the documented findings, assessment, and plan of care. Objective - Vital Signs Vital signs: Vital Signs Temp 98.0 F 09/05/23 07:45 Pulse 67 09/05/23 08:00 Resp 17 09/05/23 08:00 BP 113/67 09/05/23 07:45 Pulse Ox 96 09/05/23 07:45 FiO2 Intake & Output 09/04/23 09/05/23 09/05/23 18:59 06:59 18:59 Intake Total 1348 Output Total 500 Balance 848 Weight 85.6 kg 85.6 kg Intake: IV 1348 Output: Urine 500 Other: Voiding Method Toilet Toilet # Voids 1 1 - Labs CBC & Chem 7: 09/05/23 09:24 09/05/23 09:20 Labs: Abnormal Lab Results - Last 24 Hours (Table) 09/04/23 09/05/23 09/05/23 Range/Units 18:45 09:20 09:24 WBC 11.4 H (3.8-10.6) k/uL Neutrophils # 9.5 H (1.3-7.7) k/uL Potassium 3.3 L (3.5-5.1) mmol/L BUN 28 H 31 H (9-20) mg/dL Glucose 178 H 158 H (74-99) mg/dL
[2023-09-05] MEDS ORDERED: Potassium Replacement Protocol 1 EACH MISC MISCELLANE PRN (15:34)
[2023-09-05] MEDS: POTASSIUM CHLORIDE ER 20 MEQ TAB.ER PO SCH ×2 (16:55→18:05)
[2023-09-05] MEDS: LOSARTAN 25 MG TAB PO SCH (20:10)
[2023-09-06 04:59] VITALS: RESP 17
[2023-09-06] MEDS: SODIUM CHLORIDE 0.9% 1,000 ML IV SCH (05:58)
[2023-09-06] MEDS ORDERED: CHLORTHALIDONE 25 MG TAB PO SCH (09:00)
[2023-09-06] MEDS: FLECAINIDE 50 MG TAB PO SCH (09:08)
[2023-09-06] MEDS: ASPIRIN 325 MG TAB PO SCH (09:08)
--- NOTE | 2023-09-06 10:22 | P.DS ---
Providers Attending physician: Ethan Harrison Primary care physician: [facility] Hospital Course: This is a 68-year-old male who underwent PVC ablation with Dr. Harrison. Post- ablation, patient continued to have PVCs and episodes of bigeminy. He was started on flecainide with significant decrease in PVC burden. The patient is without complaints of chest pain or pressure. Denies shortness of breath. His metoprolol has been discontinued. Blood pressure is slightly on the higher side with a systolic in the [id number]. The patient was deemed stable for discharge home today from a cardiac standpoint. He is to follow up outpatient with Dr. Dacosta. The patient will undergo cardiac MRI in 4-6 weeks and also an outpatient Holter monitor. The patient was instructed that if he continues to have elevated blood pressures, his losartan may be increased in the outpatient setting Discharge diagnosis Status post PVC ablation Frequent PVCs overall PVC burden between 22-36% Mild cardiomyopathy ejection fraction 45% Multiple PVCs morphologies Normal coronary arteries Update Patient had very frequent PVCs of multiple different morphologies He underwent successful ablation of 2 PVCs in the left ventricle 1 along the inferior wall and the other in the superior lateral wall He had at least 1-2 more different morphologies but they appear to be epicardial in nature The coronary veins were also mapped Subsequently I started him on flecainide 50 mrem twice daily which is tolerated well There is significant suppression of PVCs His beta blockers were discontinued He will follow-up with Dr. Suh Outpatient 2 week Holter monitor and a cardiac MRI in the future Continue flecainide low-dose for now Nurse practitioner note has been reviewed by physician. Signing provider agrees with the documented findings, assessment, and plan of care. Plan - Discharge Summary Discharge Rx Participant: No New Discharge Prescriptions: New Aspirin EC [Ecotrin] 325 mg PO DAILY #30 tab Flecainide [Tambocor] 50 mg PO Q12HR #180 tab Continue ALPRAZolam [Xanax] 0.25 mg PO DAILY PRN PRN Reason: Anxiety Chlorthalidone [Hygroton] 25 mg PO DAILY Losartan [Cozaar] 25 mg PO HS EPINEPHrine (Auto Inject) [Epipen] 0.3 mg IM ONCE PRN #2 each PRN Reason: Anaphylaxis Meclizine [Antivert] 25 mg PO TID PRN PRN Reason: Vertigo Cyclobenzaprine [Flexeril] 10 mg PO DAILY PRN PRN Reason: Muscle Spasm Discontinued Metoprolol Succinate (ER) [Toprol XL] 25 mg PO DAILY Discharge Medication List Chlorthalidone [Hygroton] 25 mg PO DAILY 09/15/22 [History] Losartan [Cozaar] 25 mg PO HS 09/15/22 [History] EPINEPHrine (Auto Inject) [Epipen] 0.3 mg IM ONCE PRN #2 each 10/02/22 [Rx] ALPRAZolam [Xanax] 0.25 mg PO DAILY PRN 01/01/23 [History] Cyclobenzaprine [Flexeril] 10 mg PO DAILY PRN 01/01/23 [History] Meclizine [Antivert] 25 mg PO TID PRN 01/01/23 [History] Aspirin EC [Ecotrin] 325 mg PO DAILY #30 tab 09/04/23 [Rx] Flecainide [Tambocor] 50 mg PO Q12HR #180 tab 09/06/23 [Rx] Follow up Appointment(s)/Referral(s): Bubba Dacosta MD [STAFF PHYSICIAN] - 1 Week (September 19 3:00) Patient Instructions/Handouts: Cardiac Ablation (DC) Activity/Diet/Wound Care/Special Instructions: Post EP study - Ablation instructions 1. Keep access sites dry for 2 days. 2. No heavy lifting or straining for 2 days. 3. Avoid bending the hips repeatedly for 2 days. 4. You may go up and down stairs slowly Call if the following is noted 1. Bleeding, increasing swelling or pain at the access sites. 2. Increasing chest discomfort, especially upon taking a deep breath. 3. Increasing shortness of breath, at rest or with exertion. 4. Undue cough / phlegm 5. Difficulty or pain while swallowing. 6. Pain or change in color in the extremities. 7. Fever, chills, rigors. 8. Increasing headache or neurologic symptoms. 9. Dizziness, fainting, palpitations Hold metoprolol Continue all other medications Aspirin 325 mg by mouth daily one month Discharge Disposition: HOME WITH HOME HEALTH SERVICES
[2023-09-06 11:20] VITALS: BP 155/85; PULSE 58; TEMP 98.4
== END 2023-09-06 12:11 | disposition home health service (06) ==
LOC: CATHEP 08:35 → 3SCARD 16:45 → CATHEP 09-06 12:11
PROVIDERS: ATTEND Internal Medicine Clinical Cardiac Electrophysiology
DX: I49.3 Ventricular premature depolarization (principal); I47.20 Ventricular tachycardia, unspecified; I42.9 Cardiomyopathy, unspecified; I10 Essential (primary) hypertension; I25.10 Atherosclerotic heart disease of native coronary artery without angina pectoris; Z79.82 Long term (current) use of aspirin; Z79.899 Other long term (current) drug therapy; Z98.890 Other specified postprocedural states
CPT/HCPCS: 93662; 93654; 86900; 86901; 80053; 80048 ×2; 84443; 83735 ×2; 85025; 86850; C1760 ×2; C1769 ×4; C1894; C1892; C1730 ×2; C1887; C1759; C1893; C1900; C1732; J2001; J1644 ×2; J3475; J0131; Q9967

== ENCOUNTER 2023-09-13 22:24 | Emergency (ER) | payer OTHER ==
[2023-09-13 22:46] VITALS: TEMP 98.4
[2023-09-13] MEDS ORDERED: ASPIRIN 81 MG PO STA (22:57)
[2023-09-13 23:21] LABS: Basophils % (A) 1 %; Eosinophils # (A) 0.6 k/uL (0-0.7); Eosinophils % (A) 8 %; HCT 42.5 % (39.0-53.0); Lymphocytes # (A) 1.9 k/uL (1.0-4.8); Lymphocytes % (A) 25 %; MCH 30.4 pg (25.0-35.0); MCHC 35.3 g/dL (31.0-37.0); Mean Platelet Volume 8.5; Monocytes # (A) 0.4 k/uL (0-1.0); Monocytes % (A) 6 %; Neutrophils # (A) 4.4 k/uL (1.3-7.7); Neutrophils % (A) 59 %; Platelet Count 223 k/uL (150-450); RBC 4.94 m/uL (4.30-5.90); RDW 12.1 % (11.5-15.5); WBC 7.5 k/uL (3.8-10.6)
[2023-09-13 23:31] LABS: ALT 16 U/L (4-49); AST 19 U/L (17-59); African American GFR (CKD) 74 (>60 ml/min/1.73 sqM); Albumin 4.5 g/dL (3.5-5.0); Alkaline Phosphatase 62 U/L (38-126); Anion Gap 11 mmol/L; Blood Urea Nitrogen 41 mg/dL (9-20); Calcium 9.4 mg/dL (8.4-10.2); Carbon Dioxide 24 mmol/L (22-30); Chloride 105 mmol/L (98-107); Glucose 101 mg/dL (74-99); Magnesium 2.1 mg/dL (1.6-2.3); Non-African American GFR(CKD) 64 (>60 ml/min/1.73 sqM); Potassium 3.7 mmol/L (3.5-5.1); Sodium 140 mmol/L (137-145); Total Bilirubin 0.5 mg/dL (0.2-1.3); Total Protein 7.1 g/dL (6.3-8.2)
[2023-09-13 23:39] LABS: INR 0.9 (<1.2); Partial Thromboplastin Time 25.2 sec (22.0-30.0); Prothrombin Time 10.5 sec (10.0-12.5)
--- NOTE | 2023-09-14 00:30 | XR ---
EXAM: XR Chest, 2 Views CLINICAL HISTORY: Chest Pain TECHNIQUE: Frontal and lateral views of the chest. COMPARISON: December 10, 2018 FINDINGS: Lungs: Unremarkable. No infiltration, atelectasis or mass density. Pleural space: Unremarkable. No pneumothorax. No pleural fluid. Heart: Unremarkable. No cardiomegaly. Mediastinum: Tortuous thoracic aorta. Bones/joints: Unremarkable. No acute abnormalities. IMPRESSION: No acute findings in the chest.
--- NOTE | 2023-09-14 00:31 | ED ---
Chest Pain HPI - General Chief Complaint: Chest Pain Stated Complaint: Chest pain Time Seen by Provider: 09/13/23 22:49 Source: patient Mode of arrival: wheelchair Limitations: no limitations - History of Present Illness Initial Comments: 68-year-old male presenting with chief complaint of chest pain. Patient reports that he had intermittent sharp chest pain a few hours prior to arrival. States that this pain would last for about 5-10 seconds and then resolved completely. Pain was intermittent for several episodes which prompted him to come to the ER for further evaluation. No alleviating or aggravating factors. No shortness of breath. No palpitations. No numbness, tingling, weakness. Patient reports that earlier in the day he stood up from a seated position too quickly and felt a bit dizzy, no current dizziness. No pain currently. No lower extremity swelling. No recent long travel. Patient had an ablation done for frequent PVCs on 09/04. - Related Data Home Medications Medication Instructions Recorded Confirmed Chlorthalidone [Hygroton] 25 mg PO DAILY 09/15/22 09/04/23 Losartan [Cozaar] 25 mg PO HS 09/15/22 09/04/23 ALPRAZolam [Xanax] 0.25 mg PO DAILY PRN 01/01/23 09/04/23 Cyclobenzaprine [Flexeril] 10 mg PO DAILY PRN 01/01/23 09/04/23 Meclizine [Antivert] 25 mg PO TID PRN 01/01/23 09/04/23 Previous Rx's Medication Instructions Recorded EPINEPHrine (Auto Inject) [Epipen] 0.3 mg IM ONCE PRN #2 each 10/02/22 Aspirin EC [Ecotrin] 325 mg PO DAILY #30 tab 09/04/23 Flecainide [Tambocor] 50 mg PO Q12HR #180 tab 09/06/23 Allergies Allergy/AdvReac Type Severity Reaction Status Date / Time regadenoson [From Lexiscan] Allergy Rash/Hives Verified 09/13/23 22:31 sulfamethoxazole Allergy Rash/Hives Verified 09/13/23 22:31 [From Bactrim] trimethoprim [From Bactrim] Allergy Rash/Hives Verified 09/13/23 22:31 Review of Systems ROS Statement: Those systems with pertinent positive or pertinent negative responses have been documented in the HPI. ROS Other: All systems not noted in ROS Statement are negative. EKG Findings - EKG Comments: EKG Findings:: sinus rhythm with frequent ventricular premature complexes and ventricular rate 64. LA interval 207. QRS 101. QT 406. QTC 415. Left axis deviation. Past Medical History Past Medical History: Hypertension Additional Past Medical History / Comment(s): hx kidney stones, ascending aortic aneurysm(Dr Olesya winchester), hx migraines, stress test results - questionable. recent chemical stress test caused pt to have a rash from injection site up his trunk.was seen in ER. Arthritis in fingers. PVC ablation History of Any Multi-Drug Resistant Organisms: None Reported Past Surgical History: Heart Catheterization, Hernia Repair, Orthopedic Surgery, Tonsillectomy Additional Past Surgical History / Comment(s): lithotripsy x 6 times; macular pucker surgery rt eye, inguinal hernia, rt hand ganglion cyst, rt foot toe /pinned, left foot surgery,cataract rt eye, nasal surgery, Past Anesthesia/Blood Transfusion Reactions: Motion Sickness, Postoperative Nausea & Vomiting (PONV) Additional Past Anesthesia/Blood Transfusion Reaction / Comment(s): hx nausea after lithotripsy Past Psychological History: No Psychological Hx Reported Smoking Status: Never smoker Past Alcohol Use History: None Reported Past Drug Use History: None Reported - Past Family History Mother Family Medical History: Cancer Additional Family Medical History / Comment(s): . Father Additional Family Medical History / Comment(s): rheumatic fever when young. Father at age 86 from old age. Sister(s) Additional Family Medical History / Comment(s): Patient has one sister that from some type of myelodysplastic disorder Daughter(s) Family Medical History: No Reported History Additional Family Medical History / Comment(s): . General Exam Limitations: no limitations General appearance: alert, in no apparent distress Head exam: Present: atraumatic, normocephalic, normal inspection Eye exam: Present: normal appearance, EOMI Neck exam: Present: normal inspection, full ROM Respiratory exam: Present: normal lung sounds bilaterally. Absent: respiratory distress, wheezes, rales, rhonchi, stridor Cardiovascular Exam: Present: regular rate, normal rhythm, normal heart sounds. Absent: systolic murmur, diastolic murmur, rubs, gallop, clicks Extremities exam: Absent: pedal edema Neurological exam: Present: alert, oriented X3 Psychiatric exam: Present: normal affect, normal mood Skin exam: Present: warm, dry, intact, normal color. Absent: rash Course Vital Signs 09/13/23 09/13/23 09/14/23 22:31 23:32 00:53 Temperature 98.4 F Pulse Rate 44 L 62 82 Respiratory 18 16 18 Rate Blood Pressure 140/75 139/88 136/80 O2 Sat by Pulse 98 98 98 Oximetry Chest Pain MDM - MDM Was pt. sent in by a medical professional or institution (, PA, THERMOGRAPH OPERATOR, urgent care, hospital, or longterm...) When possible be specific @ -[No] Did you speak to anyone other than the patient for history (EMS, parent, family, police, friend...)? What history was obtained from this source @ -[No] Did you review nursing and triage notes (agree or disagree)? Why? @ -[I reviewed and agree with nursing and triage notes] Were old charts reviewed (outside hosp., previous admission, EMS record, old EKG, old radiological studies, urgent care reports/EKG's, longterm records)? Report findings @ -Patient's most recent cardiac catheterization back in November of this year was reviewed which showed mild CAD nonobstructive. Differential Diagnosis (chest pain, altered mental status, abdominal pain women, abdominal pain men, vaginal bleeding, weakness, fever, dyspnea, syncope, headache, dizziness, GI bleed, back pain, seizure, CVA, palpatations, mental health, musculoskeletal)? @ -[facility] Differential Chest Pain: Stable Angina, Unstable Angina, STEMI, NSTEMI Aortic Dissection, Pneumothorax, Musculoskeletal, Esophageal Spasm GERD, Cholecystitis, Pancreatitis, Zoster This is not meant to be an all-inclusive list. EKG interpreted by me (3pts min.). @ -[As above] X-rays interpreted by me (1pt min.). @ -Chest x-ray shows no acute process CT interpreted by me (1pt min.). @ -[None done] U/S interpreted by me (1pt. min.). @ -[None done] What testing was considered but not performed or refused? (CT, X-rays, U/S, labs)? Why? @ -[None] What meds were considered but not given or refused? Why? @ -[None] Did you discuss the management of the patient with other professionals (professionals i.e. , PA, THERMOGRAPH OPERATOR, lab, RT, psych nurse, dialysis social worker, shredded filler machine wrapper layer, teacher, training systems officer, dependency case manager)? Give summary @ -[No] Was smoking cessation discussed for >3mins.? @ -[No] Was critical care preformed (if so, how long)? @ -[No] Were there social determinants of health that impacted care today? How? (Homelessness, low income, unemployed, alcoholism, drug addiction, transportation, low edu. Level, literacy, decrease access to med. care, custodial, rehab)? @ -[No] Was there de-escalation of care discussed even if they declined (Discuss DNR or withdrawal of care, Hospice)? DNR status @ -[No] What co-morbidities impacted this encounter? (DM, HTN, Smoking, COPD, CAD, Cancer, CVA, ARF, Chemo, Hep., AIDS, mental health diagnosis, sleep apnea, morbid obesity)? @ -[None] Was patient admitted / discharged? Hospital course, mention meds given and route, prescriptions, significant lab abnormalities, going to OR and other pertinent info. @ -68-year-old male presenting with chief complaint of chest pain that started today. No pain currently. History and physical examination are conducted. No leukocytosis or anemia. Troponin is mildly elevated at 0.091, of note patient had a cardiac ablation performed on 09/04. Negative chest x-ray. EKG shows no ischemic findings. On reassessment patient is resting comfortably. Patient was educated on today's findings. Shared decision-making is utilized. Given that the patient's chest pain is atypical, he had a recent cardiac catheterization in November which showed mild nonobstructive disease, his recent ablation can account for the mild troponin elevation, patient is requesting to be discharged home. I believe this is reasonable. Patient will follow up closely with his PCP and inking machine tender. Follow-up with PCP. Report back to ER with any new or worsening symptoms. Discussed return parameters and answered all questions. Patient conveyed verbal understanding and agreed to the plan. I discussed this case in detail with my attending Dr. Shah Undiagnosed new problem with uncertain prognosis? @ -[No] Drug Therapy requiring intensive monitoring for toxicity (Heparin, Nitro, Insulin, Cardizem)? @ -[No] Were any procedures done? @ -[No] Diagnosis/symptom? @ -Atypical chest pain Acute, or Chronic, or Acute on Chronic? @ -Acute Uncomplicated (without systemic symptoms) or Complicated (systemic symptoms)? @ -Uncomplicated Side effects of treatment? @ -[No] Exacerbation, Progression, or Severe Exacerbation? @ -[No] Poses a threat to life or bodily function? How? (Chest pain, [place], [place], pneumonia, PE, COPD, DKA, ARF, appy, cholecystitis, CVA, Diverticulitis, Homicidal, Suicidal, threat to staff... and all critical care pts) @ -Low likelihood Disposition Clinical Impression: Atypical chest pain Disposition: HOME SELF-CARE Condition: Good Instructions (If sedation given, give patient instructions): Chest Pain (ED) Additional Instructions: follow-up with PCP and inking machine tender. Report back to ER with any new or worsening symptoms. Is patient prescribed a controlled substance at d/c from ED?: No Referrals: Epi Velazquez MD [Primary Care Provider] - 1-2 days Bubba Dacosta MD [STAFF PHYSICIAN] - 1-2 days Time of Disposition: 00:31
[2023-09-14 01:09] VITALS: BP 136/80; PULSE 82; RESP 18
== END 2023-09-14 00:53 | disposition home or self-care (01) ==
LOC: EC 22:24
DX: R07.89 Other chest pain (principal); R79.89 Other specified abnormal findings of blood chemistry; I10 Essential (primary) hypertension; Z79.899 Other long term (current) drug therapy; Z88.1 Allergy status to other antibiotic agents; Z88.2 Allergy status to sulfonamides; Z88.8 Allergy status to other drugs, medicaments and biological substances
CPT/HCPCS: 36415; 71046; 80053; 83735; 84484; 85025; 85610; 85730; 93005; 99285

== ENCOUNTER → 2023-12-21 | Outpatient (CLI) | payer OTHER ==
--- NOTE | 2023-12-21 17:52 | XR ---
EXAMINATION TYPE: XR KUB DATE OF EXAM: 12/21/2023 COMPARISON: 02/28/2023 INDICATION: Renal calculus left-sided TECHNIQUE: Single view abdomen FINDINGS: There is a normal bowel gas pattern. Psoas margins are normal. No organomegaly is present. There may be a couple of punctate calcifications overlying the mid to inferior pole left kidney IMPRESSION: 1. Couple small left renal calcifications
== END | disposition home or self-care (01) ==
LOC: RADXRMAIN 09:36
PROVIDERS: ATTEND Urology
DX: N20.2 Calculus of kidney with calculus of ureter (principal)
CPT/HCPCS: 74018

== ENCOUNTER 2024-01-24 04:32 | Emergency (ER) | payer OTHER ==
[2024-01-24] MEDS: SODIUM CHLORIDE 0.9% 500 ML 500 ML IV STA (04:59)
[2024-01-24] MEDS: KETOROLAC 15 MG/ML 1 ML VIAL IVP STA (05:00)
[2024-01-24 05:02] VITALS: RESP 18; TEMP 97.4
[2024-01-24] MEDS: ONDANSETRON 4 MG/2 ML VIAL IVP STA (05:31)
[2024-01-24 05:34] LABS: Basophils % (A) 0 %; Eosinophils # (A) 0.1 k/uL (0-0.7); Eosinophils % (A) 1 %; HCT 47.4 % (39.0-53.0); HGB 16.3 gm/dL (13.0-17.5); Lymphocytes % (A) 9 %; MCH 29.7 pg (25.0-35.0); MCHC 34.4 g/dL (31.0-37.0); MCV 86.2 fL (80.0-100.0); Mean Platelet Volume 8.9; Monocytes # (A) 0.6 k/uL (0-1.0); Monocytes % (A) 5 %; Neutrophils # (A) 9.9 k/uL (1.3-7.7); Neutrophils % (A) 84 %; Platelet Count 203 k/uL (150-450); WBC 11.7 k/uL (3.8-10.6)
[2024-01-24 05:36] LABS: ALT 20 U/L (4-49); AST 26 U/L (17-59); African American GFR (CKD) 61 (>60 ml/min/1.73 sqM); Albumin 4.7 g/dL (3.5-5.0); Alkaline Phosphatase 66 U/L (38-126); Anion Gap 12 mmol/L; Blood Urea Nitrogen 27 mg/dL (9-20); Calcium 9.6 mg/dL (8.4-10.2); Carbon Dioxide 24 mmol/L (22-30); Chloride 105 mmol/L (98-107); Glucose 116 mg/dL (74-99); Non-African American GFR(CKD) 53 (>60 ml/min/1.73 sqM); Potassium 3.7 mmol/L (3.5-5.1); Sodium 141 mmol/L (137-145); Total Bilirubin 0.8 mg/dL (0.2-1.3); Total Protein 7.5 g/dL (6.3-8.2)
[2024-01-24 06:00] LABS: Amorphous Sediment,Urine Rare /hpf; Appearance,Urine Clear (Clear); Bilirubin,Urine Negative (Negative); Blood,Urine Small (Negative); Color,Urine Colorless; Glucose,Urine (UA) Negative (Negative); Hyaline Casts,Urine 1 /lpf (0-2); Ketones,Urine Negative (Negative); Leukocyte Esterase,Urine Negative (Negative); Mucus,Urine Rare /hpf; Nitrite,Urine Negative (Negative); PH, Urine 6.5 (5.0-8.0); Protein,Urine Negative (Negative); RBC,Urine 16 /hpf (0-5); Specific Gravity,Urine 1.014 (1.001-1.035); Urobilinogen,Urine <2.0 mg/dL (<2.0); WBC,Urine <1 /hpf (0-5)
--- NOTE | 2024-01-24 06:32 | ED ---
Abdominal Pain HPI - General Chief Complaint: Abdominal Pain Stated Complaint: Abd pain blood in urine Time Seen by Provider: 01/24/24 04:45 Source: patient Mode of arrival: ambulatory Limitations: no limitations - History of Present Illness Initial Comments: Patient is [age]-year-old gentleman who presents the ER today for evaluation of right-sided flank pain and hematuria. Patient reports he had a couple days of hematuria he had a urinalysis in the outpatient facility. No infection. Patient states that today he developed pain in his right side rating to his right flank. Patient states that typically his kidney stones have been on the left but this is slightly different. Patient reports he has passed possibly 100s of stones in his life he said intervention including stents a couple of times. - Related Data Home Medications Medication Instructions Recorded Confirmed Chlorthalidone [Hygroton] 25 mg PO DAILY 09/15/22 09/04/23 Losartan [Cozaar] 25 mg PO HS 09/15/22 09/04/23 ALPRAZolam [Xanax] 0.25 mg PO DAILY PRN 01/01/23 09/04/23 Cyclobenzaprine [Flexeril] 10 mg PO DAILY PRN 01/01/23 09/04/23 Meclizine [Antivert] 25 mg PO TID PRN 01/01/23 09/04/23 Previous Rx's Medication Instructions Recorded EPINEPHrine (Auto Inject) [Epipen] 0.3 mg IM ONCE PRN #2 each 10/02/22 Aspirin EC [Ecotrin] 325 mg PO DAILY #30 tab 09/04/23 Flecainide [Tambocor] 50 mg PO Q12HR #180 tab 09/06/23 HYDROcodone/APAP 5-325MG [Bryson 1 tab PO Q6HR PRN 3 Days #8 tab 01/24/24 5-325] Ondansetron Odt [Zofran Odt] 4 mg PO Q8HR PRN #12 tab 01/24/24 Allergies Allergy/AdvReac Type Severity Reaction Status Date / Time regadenoson [From Lexiscan] Allergy Rash/Hives Verified 01/24/24 04:41 sulfamethoxazole Allergy Rash/Hives Verified 01/24/24 04:41 [From Bactrim] trimethoprim [From Bactrim] Allergy Rash/Hives Verified 01/24/24 04:41 Review of Systems ROS Statement: Those systems with pertinent positive or pertinent negative responses have been documented in the HPI. ROS Other: All systems not noted in ROS Statement are negative. Past Medical History Past Medical History: Hypertension Additional Past Medical History / Comment(s): hx kidney stones, ascending aortic aneurysm(Dr Olesya winchester), hx migraines, stress test results - questionable. recent chemical stress test caused pt to have a rash from injection site up his trunk.was seen in ER. Arthritis in fingers. PVC ablation History of Any Multi-Drug Resistant Organisms: None Reported Past Surgical History: Heart Catheterization, Hernia Repair, Orthopedic Surgery, Tonsillectomy Additional Past Surgical History / Comment(s): lithotripsy x 6 times; macular pucker surgery rt eye, inguinal hernia, rt hand ganglion cyst, rt foot toe /pinned, left foot surgery,cataract rt eye, nasal surgery, Past Anesthesia/Blood Transfusion Reactions: Motion Sickness, Postoperative Nausea & Vomiting (PONV) Additional Past Anesthesia/Blood Transfusion Reaction / Comment(s): hx nausea after lithotripsy Past Psychological History: No Psychological Hx Reported Smoking Status: Never smoker Past Alcohol Use History: Occasional Past Drug Use History: None Reported - Past Family History Mother Family Medical History: Cancer Additional Family Medical History / Comment(s): . Father Additional Family Medical History / Comment(s): rheumatic fever when young. Father at age 86 from old age. Sister(s) Additional Family Medical History / Comment(s): Patient has one sister that from some type of myelodysplastic disorder Daughter(s) Family Medical History: No Reported History Additional Family Medical History / Comment(s): . General Exam - General Exam Comments Initial Comments: Physical Exam GENERAL: Patient is well-developed and well-nourished. Patient is nontoxic and well-hydrated and is in no distress. HENT: Normocephalic, Atraumatic. EYES: PERRL, EOMI PULMONARY: Unlabored respirations. CARDIOVASCULAR: RRR Warm and well perfused extremities ABDOMEN: Non-distended SKIN: No rashes or bruising : Deferred NEUROLOGIC: Alert and oriented Normal speech Normal gait MUSCULOSKELETAL: Moving all extremities with no apparent injury PSYCHIATRIC: No SI/HI Limitations: no limitations Course Vital Signs 01/24/24 01/24/24 01/24/24 04:40 05:32 06:46 Temperature 97.4 F L Pulse Rate 53 L 62 62 Respiratory 18 18 18 Rate Blood Pressure 147/94 162/94 133/91 O2 Sat by Pulse 97 97 97 Oximetry 01/24/24 07:37 Temperature 97.4 F L Pulse Rate 53 L Respiratory 18 Rate Blood Pressure 147/56 O2 Sat by Pulse 98 Oximetry Medical Decision Making - Medical Decision Making Was pt. sent in by a medical professional or institution (, DOROTHEA, RATING SPECIALIST, urgent care, hospital, or prison...) When possible be specific @ -No Did you speak to anyone other than the patient for history (EMS, parent, family, police, friend...)? What history was obtained from this source @ -No Did you review nursing and triage notes (agree or disagree)? Why? @ -I reviewed and agree with nursing and triage notes Were old charts reviewed (outside hosp., previous admission, EMS record, old EKG, old radiological studies, urgent care reports/EKG's, prison records)? Report findings @ -Previous CT scans and urology consult notes were reviewed Differential Diagnosis (chest pain, altered mental status, abdominal pain women, abdominal pain men, vaginal bleeding, weakness, fever, dyspnea, syncope, headache, dizziness, GI bleed, back pain, seizure, CVA, palpatations, mental h ealth)? @ -Not applicable EKG interpreted by me (3pts min.). @ -As above X-rays interpreted by me (1pt min.). @ -None done CT interpreted by me (1pt min.). @ -Multiple kidney stones, mild hydro, no large stones U/S interpreted by me (1pt. min.). @ -None done What testing was considered but not performed or refused? (CT, X-rays, U/S, labs)? Why? @ -None What meds were considered but not given or refused? Why? @ -None Did you discuss the management of the patient with other professionals ( professionals i.e. DOROTHEA Anthony, RATING SPECIALIST, lab, RT, psych nurse, manager social responsibility, joss house keeper, teacher, juvenile probation officer, major case detective)? Give summary @ -No Was smoking cessation discussed for >3mins.? @ -No Was critical care preformed (if so, how long)? @ -No Were there social determinants of health that impacted care today? How? (Homelessness, low income, unemployed, alcoholism, drug addiction, transportation, low edu. Level, literacy, decrease access to med. care, longterm, rehab)? @ -No Was there de-escalation of care discussed even if they declined (Discuss DNR or withdrawal of care, Hospice)? DNR status @ -No What co-morbidities impacted this encounter? (DM, HTN, Smoking, COPD, CAD, Cancer, CVA, ARF, Chemo, Hep., AIDS, mental health diagnosis, sleep apnea, morbid obesity)? @ -None Was patient admitted / discharged? Hospital course, mention meds given and route, prescriptions, significant lab abnormalities, going to OR and other pertinent info. @ -Discharged Patient was seen and evaluated, history is obtained from the patient. Labs and imaging were obtained. Patient multiple stones but his pain was managed and is comfortable plan for discharge home with supportive care. Patient to be discha rged with Zofran and Bryson. Patient has Flomax at home. Undiagnosed new problem with uncertain prognosis? @ -No Drug Therapy requiring intensive monitoring for toxicity (Heparin, Nitro, Insulin, Cardizem)? @ -No Were any procedures done? @ -No Diagnosis/symptom? @ -Kidney stones Acute, or Chronic, or Acute on Chronic? @ -Default Uncomplicated (without systemic symptoms) or Complicated (systemic symptoms)? @ -Default Side effects of treatment? @ -No Exacerbation, Progression, or Severe Exacerbation? @ -No Poses a threat to life or bodily function? How? (Chest pain, [place], [place], pneumonia, PE, COPD, DKA, ARF, appy, cholecystitis, CVA, Diverticulitis, Homicidal, Suicidal, threat to staff... and all critical care pts) @ -No - Lab Data Result diagrams: 01/24/24 04:59 01/24/24 04:59 Lab Results 01/24/24 01/24/24 01/24/24 Range/Units 04:59 04:59 04:59 WBC 11.7 H (3.8-10.6) k/uL RBC 5.50 (4.30-5.90) m/uL Hgb 16.3 (13.0-17.5) gm/dL Hct 47.4 (39.0-53.0) % MCV 86.2 (80.0-100.0) fL MCH 29.7 (25.0-35.0) pg MCHC 34.4 (31.0-37.0) g/dL RDW 13.0 (11.5-15.5) % Plt Count 203 (150-450) k/uL MPV 8.9 Neutrophils % 84 % Lymphocytes % 9 % Monocytes % 5 % Eosinophils % 1 % Basophils % 0 % Neutrophils # 9.9 H (1.3-7.7) k/uL Lymphocytes # 1.0 (1.0-4.8) k/uL Monocytes # 0.6 (0-1.0) k/uL Eosinophils # 0.1 (0-0.7) k/uL Basophils # 0.0 (0-0.2) k/uL Sodium 141 (137-145) mmol/L Potassium 3.7 (3.5-5.1) mmol/L Chloride 105 (98-107) mmol/L Carbon Dioxide 24 (22-30) mmol/L Anion Gap 12 mmol/L BUN 27 H (9-20) mg/dL Creatinine 1.37 H (0.66-1.25) mg/dL Est GFR (CKD-EPI)AfAm 61 (>60 ml/min/1.73 sqM) Est GFR (CKD-EPI)NonAf 53 (>60 ml/min/1.73 sqM) Glucose 116 H (74-99) mg/dL Calcium 9.6 (8.4-10.2) mg/dL Total Bilirubin 0.8 (0.2-1.3) mg/dL AST 26 (17-59) U/L ALT 20 (4-49) U/L Alkaline Phosphatase 66 (38-126) U/L Total Protein 7.5 (6.3-8.2) g/dL Albumin 4.7 (3.5-5.0) g/dL Urine Color Colorless Urine Appearance Clear (Clear) Urine pH 6.5 (5.0-8.0) Ur Specific [place] 1.014 (1.001-1.035) Urine Protein Negative (Negative) Urine Glucose (UA) Negative (Negative) Urine Ketones Negative (Negative) Urine Blood Small H (Negative) Urine Nitrite Negative (Negative) Urine Bilirubin Negative (Negative) Urine Urobilinogen <2.0 (<2.0) mg/dL Ur Leukocyte Esterase Negative (Negative) Urine RBC 16 H (0-5) /hpf Urine WBC <1 (0-5) /hpf Amorphous Sediment Rare H (None) /hpf Hyaline Casts 1 (0-2) /lpf Urine Mucus Rare H (None) /hpf Disposition Clinical Impression: Kidney stones Disposition: HOME SELF-CARE Condition: Stable Prescriptions: HYDROcodone/APAP 5-325MG [Bryson 5-325] 1 tab PO Q6HR PRN 3 Days #8 tab PRN Reason: Pain Ondansetron Odt [Zofran Odt] 4 mg PO Q8HR PRN #12 tab PRN Reason: Nausea Is patient prescribed a controlled substance at d/c from ED?: Yes Referrals: Epi Chase MD [STAFF PHYSICIAN] - 1-2 days
[2024-01-24] MEDS: MORPHINE SULFATE 4 MG/ML SYRINGE IVP STA (06:49)
--- NOTE | 2024-01-24 07:39 | CT ---
EXAMINATION TYPE: CT abdomen pelvis wo con DATE OF EXAM: 01/24/2024 COMPARISON: 01/30/2023 HISTORY: hematuria, history of stones CT DLP: 639.4 mGycm Examination of the solid and hollow viscera is limited given the lack of contrast. FINDINGS: LUNG BASES: No evidence for nodule. No evidence for infiltrate. LIVER/GB: The gallbladder is unremarkable. No space-occupying hepatic lesion. PANCREAS: No pancreatic mass identified. No inflammatory process seen. SPLEEN: No evidence for splenomegaly. No intrasplenic lesions seen. ADRENALS: No adrenal nodules identified. No evidence for thickening. KIDNEYS: There is a 3 mm distal right ureteral calculus noted approximately 2.5 cm from the right UVJ resulting in [id number] right-sided hydronephrosis. There is right renal edema and perinephric stranding. Hypoattenuating lesions are seen bilaterally compatible with cysts. Innumerable nonobstru cting calculi upper and lower pole left kidney greater than 10 in total number and measuring up to 7 mm. BOWEL: Appendix not clearly visualized. No evidence of bowel obstruction. No inflammatory process. Lymph nodes: No evidence for adenopathy greater than 1 cm. Abdominal aorta: Atheromatous changes seen. No evidence for aneurysm. Genital organs: No significant abnormality. Other: No significant abnormality. IMPRESSION: There is a 3 mm distal right ureteral calculus noted approximately 2.5 cm from the right UVJ resultin g in [id number] right-sided hydronephrosis. There is right renal edema and perinephric strandin g. Superimposed infection is not excluded.
[2024-01-24 08:16] VITALS: BP 147/56; PULSE 53
== END 2024-01-24 08:27 | disposition home or self-care (01) ==
LOC: EC 04:32
DX: N13.2 Hydronephrosis with renal and ureteral calculous obstruction (principal); Z88.2 Allergy status to sulfonamides; Z88.1 Allergy status to other antibiotic agents; Z88.8 Allergy status to other drugs, medicaments and biological substances
CPT/HCPCS: 36415; 80053; 85025; 81001; 74176; 99285; 96374; 96375 ×2; 96361 ×2; J2270; J2405; J1885

== ENCOUNTER 2024-01-25 19:57 | Emergency (ER) | payer OTHER ==
--- NOTE | 2024-01-25 20:24 | ED ---
Back Pain HPI - General Chief Complaint: Back Pain/Injury Stated Complaint: Abd/Back Pain Time Seen by Provider: 01/25/24 20:07 Source: patient Limitations: no limitations - History of Present Illness Initial Comments: 68-year-old male presenting with chief complaint of right flank pain. Patient was here yesterday and diagnosed with a 3 mm stone about 2.5 cm from the UVJ. Patient had his pain under control at home with Kiel, but states this afternoon he was unable to manage the pain. He was having nausea. He returned for pain control. He is having no fevers, vomiting, dysuria. - Related Data Home Medications Medication Instructions Recorded Confirmed Chlorthalidone [Hygroton] 25 mg PO DAILY 09/15/22 09/04/23 Losartan [Cozaar] 25 mg PO HS 09/15/22 09/04/23 ALPRAZolam [Xanax] 0.25 mg PO DAILY PRN 01/01/23 09/04/23 Cyclobenzaprine [Flexeril] 10 mg PO DAILY PRN 01/01/23 09/04/23 Meclizine [Antivert] 25 mg PO TID PRN 01/01/23 09/04/23 Previous Rx's Medication Instructions Recorded EPINEPHrine (Auto Inject) [Epipen] 0.3 mg IM ONCE PRN #2 each 10/02/22 Aspirin EC [Ecotrin] 325 mg PO DAILY #30 tab 09/04/23 Flecainide [Tambocor] 50 mg PO Q12HR #180 tab 09/06/23 HYDROcodone/APAP 5-325MG [Kiel 1 tab PO Q6HR PRN 3 Days #8 tab 01/24/24 5-325] Ondansetron Odt [Zofran Odt] 4 mg PO Q8HR PRN #12 tab 01/24/24 Ketorolac [Toradol] 10 mg PO Q6HR PRN #12 tab 01/25/24 Allergies Allergy/AdvReac Type Severity Reaction Status Date / Time regadenoson [From Lexiscan] Allergy Rash/Hives Verified 01/25/24 20:06 sulfamethoxazole Allergy Rash/Hives Verified 01/25/24 20:06 [From Bactrim] trimethoprim [From Bactrim] Allergy Rash/Hives Verified 01/25/24 20:06 Review of Systems ROS Statement: Those systems with pertinent positive or pertinent negative responses have been documented in the HPI. ROS Other: All systems not noted in ROS Statement are negative. Past Medical History Past Medical History: Hypertension Additional Past Medical History / Comment(s): hx kidney stones, ascending aortic aneurysm(Dr Dacosta monitors), hx migraines, stress test results - questionable. recent chemical stress test caused pt to have a rash from injection site up his trunk.was seen in ER. Arthritis in fingers. PVC ablation History of Any Multi-Drug Resistant Organisms: None Reported Past Surgical History: Heart Catheterization, Hernia Repair, Orthopedic Surgery, Tonsillectomy Additional Past Surgical History / Comment(s): lithotripsy x 6 times; macular pucker surgery rt eye, inguinal hernia, rt hand ganglion cyst, rt foot toe /pinned, left foot surgery,cataract rt eye, nasal surgery, Past Anesthesia/Blood Transfusion Reactions: Motion Sickness, Postoperative Nausea & Vomiting (PONV) Additional Past Anesthesia/Blood Transfusion Reaction / Comment(s): hx nausea after lithotripsy Past Psychological History: No Psychological Hx Reported Smoking Status: Never smoker Past Alcohol Use History: Occasional Past Drug Use History: None Reported - Past Family History Mother Family Medical History: Cancer Additional Family Medical History / Comment(s): . Father Additional Family Medical History / Comment(s): rheumatic fever when young. Father at age 86 from old age. Sister(s) Additional Family Medical History / Comment(s): Patient has one sister that from some type of myelodysplastic disorder Daughter(s) Family Medical History: No Reported History Additional Family Medical History / Comment(s): . General Exam Limitations: no limitations General appearance: alert, in no apparent distress Head exam: Present: atraumatic, normocephalic Eye exam: Present: normal appearance, EOMI Neck exam: Present: normal inspection Respiratory exam: Absent: respiratory distress Cardiovascular Exam: Present: regular rate Neurological exam: Present: alert, oriented X3 Psychiatric exam: Present: normal affect, normal mood Skin exam: Present: warm, dry Course Vital Signs 01/25/24 20:05 Temperature 98 F Pulse Rate 65 Respiratory 18 Rate Blood Pressure 166/126 O2 Sat by Pulse 97 Oximetry Medical Decision Making - Medical Decision Making Was pt. sent in by a medical professional or institution (, PA, ARTS EDUCATION TEACHER, urgent care, hospital, or halfway...) When possible be specific @ -No Did you speak to anyone other than the patient for history (EMS, parent, family, police, friend...)? What history was obtained from this source @ -No Did you review nursing and triage notes (agree or disagree)? Why? @ -I reviewed and agree with nursing and triage notes Were old charts reviewed (outside hosp., previous admission, EMS record, old EKG, old radiological studies, urgent care reports/EKG's, halfway records)? Report findings @ -Patient's visit from yesterday was reviewed including CT which showed 3 mm stone just proximal to the UVJ Differential Diagnosis (chest pain, altered mental status, abdominal pain women, abdominal pain men, vaginal bleeding, weakness, fever, dyspnea, syncope, headache, dizziness, GI bleed, back pain, seizure, CVA, palpatations, mental health, musculoskeletal)? @ - [facility] Differential Back Pain: Strain, zoster, cauda equina syndrome, epidural abscess, vertebral osteomyelitis, discitis, fracture, subluxation, disc herniation, DJD, spinal stenosis, dissection, AAA, pancreatitis, peptic ulcer disease, pyelonephritis, kidney stone this is not meant to be an all-inclusive list. EKG interpreted by me (3pts min.). @ -As above X-rays interpreted by me (1pt min.). @ -None done CT interpreted by me (1pt min.). @ -None done U/S interpreted by me (1pt. min.). @ -None done What testing was considered but not performed or refused? (CT, X-rays, U/S, labs)? Why? @ -None What meds were considered but not given or refused? Why? @ -None Did you discuss the management of the patient with other professionals (professionals i.e. , PA, ARTS EDUCATION TEACHER, lab, RT, psych nurse, social science research assistant, bodywork therapist, teacher, plant protection officer, leather case finisher)? Give summary @ -No Was smoking cessation discussed for >3mins.? @ -No Was critical care preformed (if so, how long)? @ -No Were there social determinants of health that impacted care today? How? (Homelessness, low income, unemployed, alcoholism, drug addiction, transportation, low edu. Level, literacy, decrease access to med. care, correction, rehab)? @ -No Was there de-escalation of care discussed even if they declined (Discuss DNR or withdrawal of care, Hospice)? DNR status @ -No What co-morbidities impacted this encounter? (DM, HTN, Smoking, COPD, CAD, Cancer, CVA, ARF, Chemo, Hep., AIDS, mental health diagnosis, sleep apnea, morbid obesity)? @ -None Was patient admitted / discharged? Hospital course, mention meds given and route, prescriptions, significant lab abnormalities, going to OR and other pertinent info. @ -68-year-old male presenting with chief complaint of right flank pain. He was here yesterday and diagnosed with a 3 mm kidney stone. No red flag features. History and physical exam are conducted. Urine is positive for small blood with 6 RBCs. Patient is given Toradol. On reassessment he reports improvement in his pain. He will follow-up with his urologist Dr. Chase at his scheduled appointment on Sunday. He is provided with prescription for Toradol at home. Discharged. Follow-up with PCP. Report back to ER with any new or worsening symptoms. Discussed return parameters and answered all questions. Patient conveyed verbal understanding and agreed to the plan. I discussed this case in detail with my attending Dr. Shah Undiagnosed new problem with uncertain prognosis? @ -No Drug Therapy requiring intensive monitoring for toxicity (Heparin, Nitro, Insulin, Cardizem)? @ -No Were any procedures done? @ -No Diagnosis/symptom? @ -Kidney stone Acute, or Chronic, or Acute on Chronic? @ -Acute Uncomplicated (without systemic symptoms) or Complicated (systemic symptoms)? @ -Uncomplicated Side effects of treatment? @ -No Exacerbation, Progression, or Severe Exacerbation? @ -No Poses a threat to life or bodily function? How? (Chest pain, [place], [place], pneumonia, PE, COPD, DKA, ARF, appy, cholecystitis, CVA, Diverticulitis, Homicidal, Suicidal, threat to staff... and all critical care pts) @ -Low likelihood - Lab Data Lab Results 01/25/24 Range/Units 20:25 Urine Color Colorless Urine Appearance Clear (Clear) Urine pH 5.5 (5.0-8.0) Ur Specific Dillon 1.018 (1.001-1.035) Urine Protein Negative (Negative) Urine Glucose (UA) Negative (Negative) Urine Ketones 1+ H (Negative) Urine Blood Small H (Negative) Urine Nitrite Negative (Negative) Urine Bilirubin Negative (Negative) Urine Urobilinogen <2.0 (<2.0) mg/dL Ur Leukocyte Esterase Negative (Negative) Urine RBC 6 H (0-5) /hpf Urine WBC 1 (0-5) /hpf Urine Mucus Rare H (None) /hpf Disposition Clinical Impression: Kidney stone Disposition: HOME SELF-CARE Condition: Good Instructions (If sedation given, give patient instructions): Kidney Stones (ED) Additional Instructions: Follow-up with PCP and urologist. Report back to ER with any new or worsening symptoms. Take medication as prescribed. Do not take Toradol with ibuprofen or naproxen. Prescriptions: Ketorolac [Toradol] 10 mg PO Q6HR PRN #12 tab PRN Reason: Pain Is patient prescribed a controlled substance at d/c from ED?: No Referrals: Epi Velazquez MD [Primary Care Provider] - 1-2 days Eip Chase MD [STAFF PHYSICIAN] - 01/28/24 Time of Disposition: 20:59
[2024-01-25 20:25] VITALS: RESP 18; TEMP 98
[2024-01-25] MEDS: ONDANSETRON 4 MG/2 ML VIAL IVP STA (20:44)
[2024-01-25] MEDS: KETOROLAC 15 MG/ML 1 ML VIAL IVP STA (20:46)
[2024-01-25 20:47] LABS: Appearance,Urine Clear (Clear); Bilirubin,Urine Negative (Negative); Blood,Urine Small (Negative); Color,Urine Colorless; Glucose,Urine (UA) Negative (Negative); Ketones,Urine 1+ (Negative); Leukocyte Esterase,Urine Negative (Negative); Mucus,Urine Rare /hpf; Nitrite,Urine Negative (Negative); PH, Urine 5.5 (5.0-8.0); Protein,Urine Negative (Negative); RBC,Urine 6 /hpf (0-5); Specific Gravity,Urine 1.018 (1.001-1.035); Urobilinogen,Urine <2.0 mg/dL (<2.0); WBC,Urine 1 /hpf (0-5)
[2024-01-25 21:41] VITALS: BP 149/97; PULSE 69
== END 2024-01-25 21:37 | disposition home or self-care (01) ==
LOC: EC 19:57 → SUPCPDRO 19:57 → EC 21:37
DX: N20.0 Calculus of kidney (principal); Z88.2 Allergy status to sulfonamides; Z88.1 Allergy status to other antibiotic agents; Z88.8 Allergy status to other drugs, medicaments and biological substances
CPT/HCPCS: 81001; 99284; 96374; 96375; J2405; J1885

== ENCOUNTER 2024-05-16 09:40 | Day surgery (SDC) | payer OTHER ==
[2024-05-14 10:13] VITALS: BMI 27.2
[~2024-05-16 09:40] MED LIST changes: +LIDOCAINE 1% (10MG/ML) FOR IV START INTRADERMA PRN; -Pre Op ABX Message 1 EACH MISC MISCELLANE ONE
[2024-05-16 10:05] VITALS: TEMP 97.4
[2024-05-16] MEDS: LACTATED RINGERS 1,000 ML IV SCH (10:06)
[2024-05-16] MEDS: IV FLUID CONTINUATION 1,000 ML IV ONE (10:07)
[2024-05-16] MEDS ORDERED: PROPOFOL 10 MG/ML 20 ML VIAL IV ONE (10:38)
--- NOTE | 2024-05-16 11:06 | P.PCN ---
Date of Procedure: 05/16/24 Procedure(s) Performed: BRIEF HISTORY: Patient is a 69-year-old pleasant white male scheduled for an elective colonoscopy as a part of evaluation of prior history of colon polyps. His last colonoscopy was done in [facility]. PROCEDURE PERFORMED: Colonoscopy with biopsy. PREOPERATIVE DIAGNOSIS: History of colon polyps. IV sedation per Anesthesia. PROCEDURE: After informed consent was obtained, the patient, was brought into the endoscopy unit. IV sedation was administered by Anesthesia under continuous monitoring. Digital rectal examination was normal. Initially the Olympus CF-160 flexible video colonoscope was then inserted in the rectum, gradually advanced into the cecum without any difficulty. Careful examination was performed as the scope was gradually being withdrawn. Ileocecal valve and the appendiceal orifice were visualized and appeared normal. Prep was excellent. Mucosa of the cecum, ascending colon, transverse colon, descending colon, appeared normal. The sigmoid colon there was a 4 mm polyp that was removed by cold biopsy. Rest of the sigmoid colon, and rectum appeared normal. Retroflexion was performed in the rectum and no lesions were seen. The patient tolerated the procedure well. IMPRESSION: 4 mm sigmoid colon polyp status post cold biopsy Rest of the colon appeared normal RECOMMENDATIONS: Findings of this examination were discussed with the patient as well as his family. He was advised to follow-up with the biopsy results. If the biopsy reveals adenoma he can have repeat colonoscopy in 5 years..
[2024-05-16 11:37] VITALS: BP 134/61; PULSE 56; RESP 18
== END 2024-05-16 12:14 | disposition home or self-care (01) ==
LOC: ORWHC2ENDO 09:40
PROVIDERS: ATTEND Internal Medicine Gastroenterology
DX: Z12.11 Encounter for screening for malignant neoplasm of colon (principal); D12.5 Benign neoplasm of sigmoid colon; I10 Essential (primary) hypertension; I49.3 Ventricular premature depolarization; Z86.010 Personal history of colon polyps; Z79.899 Other long term (current) drug therapy; Z98.890 Other specified postprocedural states; Z88.1 Allergy status to other antibiotic agents; Z79.82 Long term (current) use of aspirin
CPT/HCPCS: 88305; 45380; J2704

== ENCOUNTER 2024-07-03 19:02 | Observation (INO) | payer OTHER ==
--- NOTE | 2024-07-03 19:12 | ED ---
Chest Pain HPI - General Source: patient Mode of arrival: ambulatory Limitations: no limitations <Jazmin Reid - Last Filed: 07/03/24 19:11> <Casa Dias - Last Filed: 07/03/24 20:59> - General Chief Complaint: Chest Pain Stated Complaint: Chest Pain Time Seen by Provider: 07/03/24 19:12 - History of Present Illness Initial Comments: 69-year-old male presenting with chief complaint of chest pain. Substernal in location. On radiation to the left arm. Started this morning. No shortness of breath. No lower extremity swelling. Took aspirin 325 mg earlier today (Jazmin Reid) Dictation was produced using [employer] dictation software. please excuse any grammatical, word or spelling errors. Chief Complaint: 69-year-old male presents to the emergency department with chest pain History of Present Illness: Patient 69-year-old male with past medical history of PVCs. He sees Dr. Suh for ascending aortic aneurysm and Dr. Corbett for PVCs and ablations. Patient states that since today he has been having some left anterior substernal chest pressure. States that he also has some tingling in the left hand. States that there is no associated diaphoresis or nausea. States that he had a cath in the past with no signs of obstruction. Patient states that pain is dull and mild. Does not have a history of coronary artery stents. Patient also concerned that he is having low heart rates. He was checking his heart rate at home found to be in the 30s according to a blood pressure cuff The ROS documented in this emergency department record has been reviewed and confirmed by me. Those systems with pertinent positive or negative responses have been documented in the HPI. All other systems are other negative and/or noncontributory. (Casa Dias) - Related Data Home Medications Medication Instructions Recorded Confirmed Chlorthalidone [Hygroton] 25 mg PO DAILY 09/15/22 05/16/24 Losartan [Cozaar] 25 mg PO DAILY 09/15/22 05/16/24 Sodium Bicarbonate Tab 650 mg PO TID 07/03/24 07/03/24 Allergies Allergy/AdvReac Type Severity Reaction Status Date / Time regadenoson [From Lexiscan] Allergy Rash/Hives Verified 05/14/24 10:04 sulfamethoxazole Allergy Rash/Hives Verified 05/14/24 10:04 [From Bactrim] trimethoprim [From Bactrim] Allergy Rash/Hives Verified 05/14/24 10:04 Review of Systems ROS Other: All systems not noted in ROS Statement are negative. <Jazmin Reid - Last Filed: 07/03/24 19:11> ROS Other: All systems not noted in ROS Statement are negative. <Casa Dias - Last Filed: 07/03/24 20:59> ROS Statement: Those systems with pertinent positive or pertinent negative responses have been documented in the HPI. Past Medical History Past Medical History: Chest Pain / Angina, Hypertension Additional Past Medical History / Comment(s): hx kidney stones, ascending aortic aneurysm(Dr Olesya winche[place]), hx migraines, stress test results - questionable. recent chemical stress test caused pt to have a rash from injection site up his trunk.was seen in ER. Arthritis in fingers. PVC ablation History of Any Multi-Drug Resistant Organisms: None Reported Past Surgical History: Cardiac Ablation, Heart Catheterization, Hernia Repair, Orthopedic Surgery, Tonsillectomy Additional Past Surgical History / Comment(s): lithotripsy x 6 times; macular pucker surgery rt eye, inguinal hernia, rt hand ganglion cyst, rt foot toe /pinned, left foot surgery,cataract rt eye, nasal surgery, COLONOSCOPY Past Anesthesia/Blood Transfusion Reactions: Motion Sickness, Postoperative Nausea & Vomiting (PONV) Additional Past Anesthesia/Blood Transfusion Reaction / Comment(s): hx nausea after lithotripsy Past Psychological History: No Psychological Hx Reported Smoking Status: Never smoker - Past Family History Mother Family Medical History: Cancer Additional Family Medical History / Comment(s): . Father Additional Family Medical History / Comment(s): rheumatic fever when young. Father at age 86 from old age. Sister(s) Additional Family Medical History / Comment(s): Patient has one sister that from some type of myelodysplastic disorder Daughter(s) Family Medical History: No Reported History Additional Family Medical History / Comment(s): . <Jazmin Reid - Last Filed: 07/03/24 19:11> General Exam Limitations: no limitations <Jazmin Reid - Last Filed: 07/03/24 19:11> <Casa Dias - Last Filed: 07/03/24 20:59> - General Exam Comments Initial Comments: Visual Physical Exam Vital signs reviewed General: Well-appearing, nontoxic, no acute distress. Head: Normocephalic, atraumatic Eyes: PERRLA, EOMI ENT: Airway patent Chest: Nonlabored breathing Skin: No visual rash, normal skin tone Neuro: Alert and oriented 3 Musculoskeletal: No gross abnormalities (Jazmin Reid) PHYSICAL EXAM: General Impression: Alert and oriented x3, not in acute distress HEENT: Normocephalic atraumatic, extra-ocular movements intact, pupils equal and reactive to light bilaterally, mucous membranes moist. Cardiovascular: Heart regular rate and rhythm Chest: Able to complete full sentences, no retractions, no tachypnea Abdomen: abdomen soft, non-tender, non-distended, no organomegaly Musculoskeletal: Pulses present and equal in all extremities, no peripheral edema Motor: no focal deficits noted Neurological: CN II-XII grossly intact, no focal motor or sensory deficits noted Skin: Intact with no visualized rashes Psych: Normal affect and mood (Casa Dias) Course Vital Signs 07/03/24 19:05 Temperature 97.6 F Pulse Rate 65 Respiratory 20 Rate Blood Pressure 152/84 O2 Sat by Pulse 99 Oximetry Chest Pain MDM <Jazmin Reid - Last Filed: 07/03/24 19:11> <Casa Dias - Last Filed: 07/03/24 20:59> - MDM I performed the quick note portion of this visit, electronically signed Jazmin Reid PA-C (Jazmin Reid) Was pt. sent in by a medical professional or institution (DOROTHEA Anthony, UI APPLICATION DEVELOPER, urgent c are, hospital, or prison...) When possible be specific @ -[No] Did you speak to anyone other than the patient for history (EMS, parent, family, police, friend...)? What history was obtained from this source @ -[No] Did you review nursing and triage notes (agree or disagree)? Why? @ -[I reviewed and agree with nursing and triage notes] Were old charts reviewed (outside hosp., previous admission, EMS record, old EKG, old radiological studies, urgent care reports/EKG's, prison records)? Report findings @ -Cardiology consultation note from January 05, 2023 was reviewed showing that patient was admitted for abnormal EKG. According to the note he had a cardiac cath on November 2022 that showed mild CAD Differential Diagnosis (chest pain, altered mental status, abdominal pain women, abdominal pain men, vaginal bleeding, musculoskeletal, weakness, fever, dyspnea, syncope, headache, dizziness, GI bleed, back pain, seizure, CVA, palpatations, mental health)? @ -Differential Chest Pain: Stable Angina, Unstable Angina, STEMI, NSTEMI Aortic Dissection, Pneumothorax, Musculoskeletal, Esophageal Spasm GERD, Cholecystitis, Pancreatitis, Zoster, this is not meant to be an all-inclusive list. EKG interpreted by me (3pts min.). @ -My EKG interpretation: Ventricular rate 73, sinus rhythm,. 173, QRS 108, QTc 430. Multiple PVCs. No LA prolongation, no QTC prolongation, no ST or T- wave changes noted. EKG compared to compared to EKG from September 13, 2023 showing no changes. Overall, this EKG is unremarkable X-rays interpreted by me (1pt min.). @ -Chest x-ray shows no acute processes CT interpreted by me (1pt min.). @ -[None done] U/S interpreted by me (1pt. min.). @ -[None done] What testing was considered but not performed or refused? (CT, X-rays, U/S, labs)? Why? @ -[None] What meds were considered but not given or refused? Why? @ -[None] Was smoking cessation discussed for >3mins.? @ -[No] Were there social determinants of health that impacted care today? How? (Homelessness, low income, unemployed, alcoholism, drug addiction, transportation, low edu. Level, literacy, decrease access to med. care, alf, rehab)? @ -[No] Was there de-escalation of care discussed even if they declined (Discuss DNR or withdrawal of care, Hospice)? DNR status @ -[No] What co-morbidities impacted this encounter? (DM, HTN, Smoking, COPD, CAD, Cancer, CVA, ARF, Chemo, Hep., AIDS, mental health diagnosis, sleep apnea, morbid obesity)? @ -History of coronary artery disease Was patient admitted / discharged? Hospital course, mention meds given and route, prescriptions, significant lab abnormalities, going to OR and other pertinent info. @ -69-year-old male with atypical chest pain typical features. Vital signs upon arrival are within acceptable limits. Patient well-appearing no acute distress. Patient complains of symptoms concerning for acute coronary syndrome. EKG does not show any signs of ischemia or infarction. Laboratory evaluation obtained. Labs are within acceptable limits. Troponin is negative. Given patient's risk factors he will be admitted consultation to cardiology. Case discussed with hospitalist for admission Did you discuss the management of the patient with other professionals (professionals i.e. , PA, UI APPLICATION DEVELOPER, lab, RT, psych nurse, aids social worker, home care assistant, teacher, parole board member, protective services case worker)? Give summary @ -See above Was critical care preformed (if so, how long)? @ -[No] Undiagnosed new problem with uncertain prognosis? @ -[No] Drug Therapy requiring intensive monitoring for toxicity (Heparin, Nitro, Insulin, Cardizem)? @ -[No] Were any procedures done? @ -[No] Diagnosis/symptom? Acute, or Chronic, or Acute on Chronic? Uncomplicated (without systemic symptoms) or Complicated (systemic symptoms)? @ -Chest pain Side effects of treatment? @ -[No] Exacerbation, Progression, or Severe Exacerbation? @ -[No] Poses a threat to life or bodily function? How? (Chest pain, [place], [place], pneumonia, PE, COPD, DKA, ARF, appy, cholecystitis, CVA, Diverticulitis, Homicidal, Suicidal, threat to staff... and all critical care pts) @ -Yes (Casa Dias) Disposition <Jazmin Reid - Last Filed: 07/03/24 19:11> Decision Time: 20:59 <Casa Dias - Last Filed: 07/03/24 20:59> Clinical Impression: Chest pain Disposition: ADMITTED IP TO THIS [facility] Condition: Fair Referrals: Epi Velazquez MD [Primary Care Provider] - 1-2 days
[2024-07-03 19:21] LABS: Basophils # (A) 0.1 k/uL (0-0.2); Basophils % (A) 1 %; Eosinophils # (A) 0.4 k/uL (0-0.7); Eosinophils % (A) 7 %; HCT 41.8 % (39.0-53.0); HGB 14.3 gm/dL (13.0-17.5); Lymphocytes # (A) 1.8 k/uL (1.0-4.8); Lymphocytes % (A) 30 %; MCHC 34.3 g/dL (31.0-37.0); MCV 87.5 fL (80.0-100.0); Monocytes # (A) 0.3 k/uL (0-1.0); Monocytes % (A) 5 %; Neutrophils # (A) 3.5 k/uL (1.3-7.7); Neutrophils % (A) 56 %; Platelet Count 210 k/uL (150-450); RBC 4.77 m/uL (4.30-5.90); RDW 12.5 % (11.5-15.5); WBC 6.2 k/uL (3.8-10.6)
[2024-07-03 19:32] LABS: ALT 15 U/L (4-49); AST 20 U/L (17-59); African American GFR (CKD) 74 (>60 ml/min/1.73 sqM); Albumin 4.4 g/dL (3.5-5.0); Alkaline Phosphatase 51 U/L (38-126); Anion Gap 7 mmol/L; Blood Urea Nitrogen 38 mg/dL (9-20); Calcium 9.9 mg/dL (8.4-10.2); Carbon Dioxide 31 mmol/L (22-30); Chloride 101 mmol/L (98-107); Glucose 92 mg/dL (74-99); Magnesium 2.1 mg/dL (1.6-2.3); Non-African American GFR(CKD) 64 (>60 ml/min/1.73 sqM); Potassium 3.5 mmol/L (3.5-5.1); Sodium 139 mmol/L (137-145); Total Bilirubin 0.5 mg/dL (0.2-1.3); Total Protein 6.7 g/dL (6.3-8.2)
[2024-07-03 19:34] LABS: INR 0.9 (<1.2); Prothrombin Time 10.5 sec (10.0-12.5)
--- NOTE | 2024-07-03 19:51 | XR ---
EXAMINATION TYPE: XR chest 2V DATE OF EXAM: 07/03/2024 COMPARISON: 09/13/2023 HISTORY: Shortness of breath TECHNIQUE: Frontal and lateral views of the chest are obtained. FINDINGS: Scattered senescent parenchymal changes noted. Hyperinflation compatible with COPD. No evidence for infiltrate. No evidence for atelectasis. Heart size is stable. Mediastinal structures are stable and grossly unremarkable. No evidence for hilar prominence. Degenerative changes dorsal spine. IMPRESSION: 1. No evidence for acute pulmonary disease.
[2024-07-03] MEDS ORDERED: NITROGLYCERIN SL TABS 0.4 MG TAB SUBLINGUAL PRN (20:51)
[2024-07-03] MEDS: ASPIRIN 81 MG PO STA (21:02)
[2024-07-03 23:15] VITALS: RESP 16
[2024-07-03] MEDS: ALPRAZolam 0.5 MG TAB PO STA (23:23)
[2024-07-04 08:50] LABS: Chol/HDL Ratio 3.97 Ratio
[2024-07-04] MEDS: SODIUM BICARBONATE TAB 650 MG TAB PO SCH (08:53)
[2024-07-04] MEDS: LOSARTAN 25 MG TAB PO SCH (08:53)
[2024-07-04] MEDS: CHLORTHALIDONE 25 MG TAB PO SCH (08:53)
[2024-07-04] MEDS ORDERED: ASPIRIN 325 MG TAB PO SCH (09:00)
--- NOTE | 2024-07-04 09:42 | P.CRDCN ---
History of Present Illness History of present illness: HISTORY OF PRESENT ILLNESS: This is a 69-year-old male with a past medical history significant for mild cardiomyopathy, normal coronary arteries, frequent PVCs, PVC ablation, and aortic regurgitation. Patient follows in the office with Dr. Dacosta. We have been asked to see the patient in consultation for chest pain. Patient examined at the bedside by Dr. Mccord. Patient presented to the hospital with a chief complaint of chest discomfort and some palpitations. The pain was in the middle of his chest. He denied any radiation of the pain. Patient denies any chest pain or pressure at the time of examination. Vital signs are stable. DIAGNOSTICS: - EKG reveals sinus mechanism with incomplete right bundle branch block. Frequent PVCs. - Chest xray negative for acute process - Laboratory data: Troponin negative x 3 - Current home cardiac medications include chlorthalidone 25 mg daily and losartan 25 mg daily - Most recent echocardiogram obtained in January 2024 revealed ejection fraction 45%, moderate pulmonary hypertension, moderate to severe AR, moderate MR, moderate TR, dilated ascending aorta at 4.5 cm - Cardiac catheterization history: November 2022 per cardiology office records revealing normal coronary arteries REVIEW OF SYSTEMS: At the time of my exam: CONSTITUTIONAL: Denies fever or chills. HEENT: Denies blurred vision, vision changes, or eye pain. Denies hemoptysis CARDIOVASCULAR: Denies chest pain. Denies orthopnea. Denies PND. Denies palpitations RESPIRATORY: Denies shortness of breath. GASTROINTESTINAL: Denies abdominal pain. Denies nausea or vomiting. HEMATOLOGIC: Denies bleeding disorders. GENITOURINARY: Denies any blood in urine. SKIN: Denies pruitis. Denies rash. PHYSICAL EXAM: VITAL SIGNS: Reviewed. GENERAL: Well-developed in no acute distress. HEENT: Head is normocephalic. Pupils are equal, round. Sclerae anicteric. Mucous membranes of the mouth are moist. Neck supple. No JVD or thyromegaly LUNGS: Respirations even and unlabored. Lungs essentially clear to auscultation bilaterally. HEART: Regular rate and rhythm. S1 and S2 heard. Diastolic murmur noted. ABDOMEN: Soft. Nondistended. Nontender. EXTREMITIES: Normal range of motion. No clubbing or cyanosis. Peripheral pulses intact. No lower extremity edema NEUROLOGIC: Awake and alert. Oriented x 3. ASSESSMENT: Chest pain, troponin negative x 3 Palpitations Frequent PVCs Normal coronary arteries per cardiac catheterization in 11/2022, report not available Mild nonischemic cardiomyopathy, 45% History of PVC ablation Valvular heart disease including moderate to severe AR, moderate MR, moderate TR PLAN: An acute coronary event has been ruled out Resume home cardiac medications Obtain 2D echo to assess cardiac structure and function Patient may be discharged home this evening from a cardiac standpoint and follow-up in the office with Dr. Dacosta Nurse practitioner note has been reviewed by physician. Signing provider agrees with the documented findings, assessment, and plan of care documented by OFFSHORE DIVER as a scribe. Past Medical History Past Medical History: Chest Pain / Angina, Hypertension Additional Past Medical History / Comment(s): hx kidney stones, ascending aortic aneurysm(Dr Dacosta monitors), hx migraines, stress test results - questionable. chemical stress test caused pt to have a rash/reaction from injection site up his trunk. Arthritis in fingers. PVC ablation History of Any Multi-Drug Resistant Organisms: None Reported Past Surgical History: Cardiac Ablation, Heart Catheterization, Hernia Repair, Orthopedic Surgery, Tonsillectomy Additional Past Surgical History / Comment(s): lithotripsy x 6 times; macular pucker surgery rt eye, inguinal hernia, rt hand ganglion cyst, rt foot toe /pinned, left foot surgery,cataract rt eye, nasal surgery, COLONOSCOPY Past Anesthesia/Blood Transfusion Reactions: Motion Sickness, Postoperative Nausea & Vomiting (PONV) Additional Past Anesthesia/Blood Transfusion Reaction / Comment(s): hx nausea after lithotripsy Past Psychological History: No Psychological Hx Reported Smoking Status: Never smoker Past Alcohol Use History: Occasional Additional Past Alcohol Use History / Comment(s): . Past Drug Use History: None Reported Additional Drug Use History / Comment(s): denies - Past Family History Mother Family Medical History: Cancer Additional Family Medical History / Comment(s): . Father Additional Family Medical History / Comment(s): rheumatic fever when young. Father at age 86 from old age. Sister(s) Additional Family Medical History / Comment(s): Patient has one sister that from some type of myelodysplastic disorder Daughter(s) Family Medical History: No Reported History Additional Family Medical History / Comment(s): . Medications and Allergies Home Medications Medication Instructions Recorded Confirmed Type Chlorthalidone [Hygroton] 25 mg PO DAILY 09/15/22 07/03/24 History Losartan [Cozaar] 25 mg PO DAILY 09/15/22 07/03/24 History Sodium Bicarbonate Tab 650 mg PO TID 07/03/24 07/03/24 History Allergies Allergy/AdvReac Type Severity Reaction Status Date / Time regadenoson [From Lexiscan] Allergy Rash/Hives Verified 05/14/24 10:04 sulfamethoxazole Allergy Rash/Hives Verified 05/14/24 10:04 [From Bactrim] trimethoprim [From Bactrim] Allergy Rash/Hives Verified 05/14/24 10:04 Physical Exam Vitals: Vital Signs Temp Pulse Pulse Resp BP BP Pulse Ox 07/04/24 01:21 16 07/04/24 00:45 97.7 F 63 16 154/91 100 07/03/24 23:14 53 L 16 151/90 97 07/03/24 19:05 97.6 F 65 20 152/84 99 Intake and Output 07/03/24 07/04/24 07/04/24 22:59 06:59 14:59 Intake Total 0 Balance 0 Intake: Oral 0 Other: Voiding Method Toilet # Voids 2 Weight 86.183 kg 86.183 kg Results 07/03/24 19:08 07/03/24 19:08 Cardiac Enzymes 07/03/24 07/03/24 07/03/24 Range/Units 19:08 19:08 21:48 AST 20 (17-59) U/L Troponin I <0.012 <0.012 (0.000-0.034) ng/mL 07/04/24 Range/Units 02:06 AST (17-59) U/L Troponin I <0.012 (0.000-0.034) ng/mL Coagulation 07/03/24 Range/Units 19:08 PT 10.5 (10.0-12.5) sec APTT 25.0 (22.0-30.0) sec Lipids 07/04/24 Range/Units 02:06 Triglycerides 106.00 (0.00-149.00) mg/dL Cholesterol 174.00 (0.00-200.00) mg/dL HDL Cholesterol 43.80 (40.00-60.00) mg/dL Cholesterol/HDL Ratio 3.97 Ratio CBC 07/03/24 Range/Units 19:08 WBC 6.2 (3.8-10.6) k/uL RBC 4.77 (4.30-5.90) m/uL Hgb 14.3 (13.0-17.5) gm/dL Hct 41.8 (39.0-53.0) % Plt Count 210 (150-450) k/uL Comprehensive Metabolic Panel 07/03/24 Range/Units 19:08 Sodium 139 (137-145) mmol/L Potassium 3.5 (3.5-5.1) mmol/L Chloride 101 (98-107) mmol/L Carbon Dioxide 31 H (22-30) mmol/L BUN 38 H (9-20) mg/dL Creatinine 1.16 (0.66-1.25) mg/dL Glucose 92 (74-99) mg/dL Calcium 9.9 (8.4-10.2) mg/dL AST 20 (17-59) U/L ALT 15 (4-49) U/L Alkaline Phosphatase 51 (38-126) U/L Total Protein 6.7 (6.3-8.2) g/dL Albumin 4.4 (3.5-5.0) g/dL Current Medications Generic Name Dose Route Start Last Admin Trade Name Freq PRN Reason Stop Dose Admin Chlorthalidone 25 mg 07/04/24 09:00 07/04/24 08:53 Chlorthalidone 25 Mg Tab PO 25 mg DAILY LEANNE Administration Losartan Potassium 25 mg 07/04/24 09:00 07/04/24 08:53 Losartan 25 Mg Tab PO 25 mg DAILY LEANNE Administration Nitroglycerin 0.4 mg 07/03/24 20:51 Nitroglycerin Sl Tabs 0.4 Mg Tab SUBLINGUAL Q5M PRN Chest Pain Sodium Bicarbonate 650 mg 07/04/24 09:00 07/04/24 08:53 Sodium Bicarbonate Tab 650 Mg Tab PO 650 mg TID LEANNE Administration Intake and Output 07/03/24 07/04/24 07/04/24 22:59 06:59 14:59 Intake Total 0 Balance 0 Intake: Oral 0 Other: Voiding Method Toilet # Voids 2 Weight 86.183 kg 86.183 kg 07/03/24 19:08 07/03/24 19:08
[2024-07-04 10:12] VITALS: BP 135/84; PULSE 51; TEMP 97.6
--- NOTE | 2024-07-04 12:26 | P.HPIM ---
History of Present Illness H&P Date: 07/04/24 This is a 69-year-old male with medical history significant for ascending aortic aneurysm, hypertension, multiple kidney stones and leaky valve x 2. Comes to the hospital after having episode of dull left-sided chest discomfort starting yesterday morning was coming and going. Patient did not have any associated shortness of breath, no dizziness or lightheadedness no diaphoresis. He was having some palpitations coming and going as well. He came in to be evaluated. His chest xray was negative for acute findings. Initial EKG reveals sinus rhythm with PACs and an incomplete right bundle branch block. Per patient he has known PVCs he underwent an ablation in the past with Dr. Willett states that it failed he is scheduled to undergo a cardiac MRI and repeat cardiac ablation in September [address] Willett. His blood work is essentially unremarkable BUN of 38 and a creatinine of 1.16 his magnesium level is 2.1 potassium of 3.5. His cardiac enzymes are negative x 3. His lipid panel reveals a triglyceride level of 106, cholesterol 174, LDL of 109, HDL of 43.8. He was resumed on all o f his home medications. At this time he is free of chest pain. He is admitted to the hospital under internal medicine with a consult placed to cardiology services. REVIEW OF SYSTEMS: CONSTITUTIONAL: No fever, no malaise, no fatigue. HEENT: No recent visual problems or hearing problems. Denied any sore throat. CARDIOVASCULAR: No chest pain, orthopnea, PND, no palpitations, no syncope. PULMONARY: No shortness of breath, no cough, no hemoptysis. GASTROINTESTINAL: No diarrhea, no nausea, no vomiting, no abdominal pain. NEUROLOGICAL: No headaches, no weakness, no numbness. HEMATOLOGICAL: Denies any bleeding or petechiae. GENITOURINARY: Denies any burning micturition, frequency, or urgency. MUSCULOSKELETAL/RHEUMATOLOGICAL: Denies any joint pain, swelling, or any muscle pain. ENDOCRINE: Denies any polyuria or polydipsia. The rest of the 14-point review of systems is negative. PHYSICAL EXAMINATION: GENERAL: The patient is alert and oriented x3, not in any acute distress. Well d eveloped, well nourished. HEENT: Pupils are round and equally reacting to light. EOMI. No scleral icterus. No conjunctival pallor. Normocephalic, atraumatic. No pharyngeal erythema. No thyromegaly. CARDIOVASCULAR: S1 and S2 present. No murmurs, rubs, or gallops. PULMONARY: Chest is clear to auscultation, no wheezing or crackles. ABDOMEN: Soft, nontender, nondistended, normoactive bowel sounds. No palpable organomegaly. MUSCULOSKELETAL: No joint swelling or deformity. EXTREMITIES: No cyanosis, clubbing, or pedal edema. NEUROLOGICAL: Gross neurological examination did not reveal any focal deficits. SKIN: No rashes. Assessment Chest pain, atypical, rule out ACS Hx of ascending aortic aneurysm being watched by Cardiology Frequent PVCs and palpitations with history of PVC ablation in 2022 Valvular heart disease/ Aortic regurgitation Hx hypertension Hx of multiple kidney stones maintained on oral sodium bicarbonate follows with urology GI prophylaxis Plan Pending 2D echocardiogram Cardiology consultation Resume all same home medications Give potassium 40 meq x1 dose. Patient should be able to DC home today once echocardiogram is complete The impression and plan of care has been dictated by Andreina Decker, Nurse Practitioner as directed. Dr. Cirilo MD I have performed a history and physical examination and medical decision making of this patient, discussed the same with the dictator, and agree with the dictators assessment and plan as written, documented as a scribe. Based on total visit time, I have performed more than 50% of this visit. Past Medical History Past Medical History: Chest Pain / Angina, Hypertension Additional Past Medical History / Comment(s): hx kidney stones, ascending aortic aneurysm(Dr Dacosta monitors), hx migraines, stress test results - questionable. chemical stress test caused pt to have a rash/reaction from injection site up his trunk. Arthritis in fingers. PVC ablation History of Any Multi-Drug Resistant Organisms: None Reported Past Surgical History: Cardiac Ablation, Heart Catheterization, Hernia Repair, Orthopedic Surgery, Tonsillectomy Additional Past Surgical History / Comment(s): lithotripsy x 6 times; macular pucker surgery rt eye, inguinal hernia, rt hand ganglion cyst, rt foot toe /pinned, left foot surgery,cataract rt eye, nasal surgery, COLONOSCOPY Past Anesthesia/Blood Transfusion Reactions: Motion Sickness, Postoperative Nausea & Vomiting (PONV) Additional Past Anesthesia/Blood Transfusion Reaction / Comment(s): hx nausea after lithotripsy Past Psychological History: No Psychological Hx Reported Smoking Status: Never smoker Past Alcohol Use History: Occasional Additional Past Alcohol Use History / Comment(s): . Past Drug Use History: None Reported Additional Drug Use History / Comment(s): denies - Past Family History Mother Family Medical History: Cancer Additional Family Medical History / Comment(s): . Father Additional Family Medical History / Comment(s): rheumatic fever when young. Father at age 86 from old age. Sister(s) Additional Family Medical History / Comment(s): Patient has one sister that from some type of myelodysplastic disorder Daughter(s) Family Medical History: No Reported History Additional Family Medical History / Comment(s): . Medications and Allergies Home Medications Medication Instructions Recorded Confirmed Type Chlorthalidone [Hygroton] 25 mg PO DAILY 09/15/22 07/03/24 History Losartan [Cozaar] 25 mg PO DAILY 09/15/22 07/03/24 History Sodium Bicarbonate Tab 650 mg PO TID 07/03/24 07/03/24 History Allergies Allergy/AdvReac Type Severity Reaction Status Date / Time regadenoson [From Lexiscan] Allergy Rash/Hives Verified 05/14/24 10:04 sulfamethoxazole Allergy Rash/Hives Verified 05/14/24 10:04 [From Bactrim] trimethoprim [From Bactrim] Allergy Rash/Hives Verified 05/14/24 10:04 Physical Exam Vitals: Vital Signs Temp Pulse Pulse Pulse Resp BP BP 07/04/24 08:00 63 16 07/04/24 07:00 97.6 F 51 L 16 135/84 07/04/24 01:21 16 07/04/24 00:45 97.7 F 63 16 154/91 07/03/24 23:14 53 L 16 151/90 07/03/24 19:05 97.6 F 65 20 152/84 Pulse Ox 07/04/24 08:00 07/04/24 07:00 99 07/04/24 01:21 07/04/24 00:45 100 07/03/24 23:14 97 07/03/24 19:05 99 Intake and Output 07/03/24 07/04/24 07/04/24 22:59 06:59 14:59 Intake Total 0 Balance 0 Intake: Oral 0 Other: Voiding Method Toilet Toilet # Voids 2 Weight 86.183 kg 86.183 kg Results CBC & Chem 7: 07/03/24 19:08 07/03/24 19:08 Labs: Abnormal Lab Results - Last 24 Hours (Table) 07/03/24 Range/Units 19:08 Carbon Dioxide 31 H (22-30) mmol/L BUN 38 H (9-20) mg/dL Thrombosis Risk Factor Assmnt - Choose All That Apply Any of the Below Risk Factors Present?: Yes Each Factor Represents 1 point: Obesity (BMI >25) Other Risk Factors: Yes Each Risk Factor Represents 2 Points: Age 61-74 years Thrombosis Risk Factor Assessment Total Risk Factor Score: 3 Thrombosis Risk Factor Assessment Level: Moderate Risk Assessment and Plan Time with Patient: Less than 30
[2024-07-04] MEDS: POTASSIUM CHLORIDE ER 20 MEQ TAB.ER PO STA (13:34)
--- NOTE | 2024-07-04 14:17 | P.DS ---
Providers Date of admission: 07/03/24 20:53 Attending physician: Lakia Estrada Consults: 07/03/24 20:51 Consult Physician Urgent Consulting Provider: Bubba Dacosta Consult Reason/Comments: chest pain Do you want consulting provider notified?: Yes Primary care physician: Epi Velazquez Hospital Course: Final Diagnosis Chest pain, atypical, ACS has been ruled out could be due to the PVCs Hx of ascending aortic aneurysm being watched by Cardiology Frequent PVCs and palpitations with history of PVC ablation in 2022 Valvular heart disease/ Aortic regurgitation Hx hypertension Hx of multiple kidney stones maintained on oral sodium bicarbonate follows with urology GI prophylaxis Discharge Disposition Patient stable for discharge home. Patient follow-up in the office of Dr. Suh in 1 week to follow-up on the echocardiogram reports. Hospital Course This is a 69-year-old male with medical history significant for ascending aortic aneurysm, hypertension, multiple kidney stones and leaky valve x 2. Comes to the hospital after having episode of dull left-sided chest discomfort starting yesterday morning was coming and going. Patient did not have any associated shortness of breath, no dizziness or lightheadedness no diaphoresis. He was having some palpitations coming and going as well. He came in to be evaluated. His chest xray was negative for acute findings. Initial EKG reveals sinus rhythm with PACs and an incomplete right bundle branch block. Per patient he has known PVCs he underwent an ablation in the past with Dr. Willett states that it failed he is scheduled to undergo a cardiac MRI and repeat cardiac ablation in September [address] Willett. His blood work is essentially unremarkable BUN of 38 and a creatinine of 1.16 his magnesium level is 2.1 potassium of 3.5. His cardiac enzymes are negative x 3. His lipid panel reveals a triglyceride level of 106, cholesterol 174, LDL of 109, HDL of 43.8. He was resumed on all of his home medications. At this time he is free of chest pain. He is admitted to the hospital under internal medicine with a consult placed to cardiology services. Patient had an echocardiogram completed he does not want to wait for the results. He is currently not having any chest pain at this time. Discussed with cardiology and patient may discharge home to follow-up with his primary mower operator Dr. Suh in the office in 1 week. Please see medication reconciliation for a list of current medications. Thank you for allowing us to participate in the care of this patient. The impression and plan of care has been dictated by Andreina Decker, Nurse Practitioner as directed. Dr. Cirilo MD I have performed a history and physical examination and medical decision making of this patient, discussed the same with the dictator, and agree with the dictators assessment and plan as written, documented as a scribe. Based on total visit time, I have performed more than 50% of this visit. Patient Condition at Discharge: Fair Plan - Discharge Summary New Discharge Prescriptions: Continue Sodium Bicarbonate Tab 650 mg PO TID Chlorthalidone [Hygroton] 25 mg PO DAILY Losartan [Cozaar] 25 mg PO DAILY Discharge Medication List Chlorthalidone [Hygroton] 25 mg PO DAILY 09/15/22 [History] Losartan [Cozaar] 25 mg PO DAILY 09/15/22 [History] Sodium Bicarbonate Tab 650 mg PO TID 07/03/24 [History] Follow up Appointment(s)/Referral(s): Bubba Dacosta MD [STAFF PHYSICIAN] - 1 Week (please call for an appointment and f/u for echo results from 07/04/23) Epi Velazquez MD [Primary Care Provider] - 1-2 days Patient Instructions/Handouts: Chest Pain (GEN) Activity/Diet/Wound Care/Special Instructions: Patient needs echocardiogram before discharge. Discharge Disposition: HOME SELF-CARE
--- NOTE | 2024-07-04 15:58 | CA ---
Transthoracic Echo Report Name: Epi Goldman Age: 69 Gender: M : 1955 Exam Date: 07/04/2024 10:52 Exam Location: [facility] Ht (in): 70 Wt (lb): 190 Ordering Physician: Soradia Mosqueda Attending/Referring Phys: [id number], Jaylin Research Technician Procedure CPT: Indications: CP Cardiac Hx: Technical Quality: Good Contrast 1: Definity Total Dose (mL): 2 Contrast 2: Total Dose (mL): MEASUREMENTS (Male / Female) Normal Values 2D ECHO LV Diastolic Diameter PLAX 6.3 cm 4.2 - 5.9 / 3.9 - 5.3 cm LV Systolic Diameter PLAX 5.1 cm IVS Diastolic Thickness 1.1 cm 0.6 - 1.0 / 0.6 - 0.9 cm LVPW Diastolic Thickness 1.2 cm 0.6 - 1.0 / 0.6 - 0.9 cm LV Relative Wall Thickness 0.4 LVOT Diameter 2.6 cm LV Diastolic Volume MOD BP 237.9 cm??? 67 - 155 / 56 - 104 cm??? LV Systolic Volume MOD BP 147.3 cm??? 22 - 58 / 19 - 49 cm??? LV Ejection Fraction MOD BP 38.1 % >= 55 % LV Cardiac Index MOD BP 2572.5 cm???/min???m??? LV Diastolic Volume MOD 4C 230.7 cm??? LV Systolic Volume MOD 4C 146.7 cm??? LV Ejection Fraction MOD 4C 36.4 % LV Cardiac Index MOD 4C 2385.4 cm???/min???m??? LV Diastolic Length 4C 9.9 cm LV Systolic Length 4C 9.4 cm LV Diastolic Volume MOD 2C 243.4 cm??? LV Systolic Volume MOD 2C 148.1 cm??? LV Ejection Fraction MOD 2C 39.2 % LV Cardiac Index MOD 2C 2706.8 cm???/min???m??? LV Diastolic Length 2C 9.7 cm LV Systolic Length 2C 9.2 cm LA Volume 127.2 cm??? 18 - 58 / 22 - 52 cm??? LA Volume Index 61.2 cm???/m??? 16 - 28 cm???/m??? Ascending Aorta Diameter 4.5 cm DOPPLER AV Peak Velocity 154.7 cm/s AV Peak Gradient 9.6 mmHg AV Mean Velocity 106.5 cm/s AV Mean Gradient 5.1 mmHg AV Velocity Time Integral 34.0 cm LVOT Peak Velocity 81.0 cm/s LVOT Peak Gradient 2.6 mmHg LVOT Velocity Time Integral 19.1 cm LVOT Stroke Volume 105.2 cm??? LVOT Stroke Volume Index 51.5 ml/m??? LVOT Cardiac Index 2986.9 cm???/min???m??? AV Area Cont Eq vti 3.1 cm??? AV Area Cont Eq pk 2.9 cm??? MV Area PHT 3.0 cm??? Mitral E Point Velocity 43.3 cm/s Mitral A Point Velocity 62.7 cm/s Mitral E to A Ratio 0.7 MV Deceleration Time 253.2 ms TR Peak Velocity 276.5 cm/s TR Peak Gradient 30.6 mmHg Right Atrial Pressure 5.0 mmHg Pulmonary Artery Systolic Pressu 35.6 mmHg Right Ventricular Systolic Press 35.6 mmHg PV Peak Velocity 72.5 cm/s PV Peak Gradient 2.1 mmHg FINDINGS Left Ventricle Left ventricular ejection fraction is estimated at40 %. Mildly increased septal wall thickness. Mildly increased left ventricular diastolic diameter. Severely increased left ventricular diastolic volume. Severely increased left ventricular systolic volume. Moderately decreased left ventricular ejection fraction. Right Ventricle Mild right ventricular dilatation with normal function. Borderline elevated right ventricular systolic pressure. Right Atrium Mild right atrial dilatation. Left Atrium Severely increased left atrial volume. Mildly increased left atrial area. Mitral Valve Structurally normal mitral valve. No evidence for mitral valve prolapse. No mitral stenosis. [id number] mitral regurgitation. Aortic Valve Trileaflet aortic valve. No aortic stenosis. [id number] aortic regurgitation. Tricuspid Valve Structurally normal tricuspid valve. No tricuspid stenosis. Mild tricuspid regurgitation. Pulmonic Valve Structurally normal pulmonic valve. No pulmonic stenosis. Trace pulmonic regurgitation. Pericardium No pericardial effusion. Aorta Moderately dilated aortic annulus. Moderately dilated ascending aorta. CONCLUSIONS Moderate LV systolic dysfunction Mild to moderate mitral regurgitation Mild to moderate tricuspid regurgitation suboptimal study secondary to frequent ventricular ectopy We could be underestimating the LV function Previewed by: Dr. Fabiano Mccord MD (Electronically Signed) Final Date: 04 July 2024 15:56
== END 2024-07-04 14:18 | disposition home or self-care (01) ==
LOC: EC 19:02 → 6NMEDSUR 20:53
PROVIDERS: ADMIT Hospitalist; ATTEND Hospitalist
DX: R07.89 Other chest pain (principal); I49.3 Ventricular premature depolarization; I08.3 Combined rheumatic disorders of mitral, aortic and tricuspid valves; I42.8 Other cardiomyopathies; I45.10 Unspecified right bundle-branch block; I10 Essential (primary) hypertension; I71.21 Aneurysm of the ascending aorta, without rupture; I49.1 Atrial premature depolarization; I25.10 Atherosclerotic heart disease of native coronary artery without angina pectoris; E66.9 Obesity, unspecified; Z68.27 Body mass index [BMI] 27.0-27.9, adult; Z79.899 Other long term (current) drug therapy; Z88.1 Allergy status to other antibiotic agents; Z88.2 Allergy status to sulfonamides; Z87.442 Personal history of urinary calculi
CPT/HCPCS: 36415; 71046; 80053; 80061; 83735; 84484; 85025; 85610; 85730; 93005; 93306; 99285

== ENCOUNTER → 2024-09-15 | Outpatient (CLI) | payer OTHER ==
--- NOTE | 2024-09-15 13:52 | CT ---
EXAMINATION TYPE: CT abdomen pelvis wo con CT DLP: 456.1 mGycm, Automated exposure control for dose reduction was used. DATE OF EXAM: 09/15/2024 1:14 PM COMPARISON: CT abdomen pelvis 01/24/2024, 01/30/2023 CLINICAL INDICATION:Male, 69 years old with history of N20.1 CALCULUS OF THE URETER; flank pain on le ft side. hx of kidney stones. TECHNIQUE: Standard CT of the abdomen and pelvis without IV or oral contrast. Lack of IV or oral co ntrast limits evaluation of solid and hollow organ viscera. Coronal and sagittal reformats were perfo rmed. FINDINGS: LOWER CHEST: Visualized lung bases are clear. Mild cardiomegaly. ABDOMEN LIVER: Unremarkable noncontrast appearance GALLBLADDER AND BILE DUCTS: Unremarkable noncontrast appearance PANCREAS: Unremarkable noncontrast appearance SPLEEN: Unremarkable noncontrast appearance ADRENAL GLANDS: Unremarkable noncontrast appearance. KIDNEYS AND URETERS: No evidence of hydronephrosis. Resolution of previously seen right hydronephros is. Bilateral renal cysts redemonstrated with largest from the inferior pole of the right kidney denisse uring 5.0 cm the largest emanating from the midportion of the left kidney measuring up to 7.6 cm. Non obstructive right lower pole 4 mm calculus. Multiple nonobstructive left renal calculi predominantly within the upper pole measuring up to 6 mm. At least 10 calculi identified. No ureteral calculus. Pas isael of previously demonstrated right ureteral calculus. Resolution of previously demonstrated right perinephric fat stranding. PELVIS BLADDER: Underdistended, limiting evaluation. No calculi. REPRODUCTIVE: Unremarkable. ABDOMEN & PELVIS STOMACH AND BOWEL: Stomach and duodenum are unremarkabledistal colonic diverticulosis without evidenc e for acute diverticulitis. No focal bowel wall thickening or surrounding inflammatory changes. No ev idence of bowel obstruction. PERITONEUM: No evidence of pneumoperitoneum or free fluid. VASCULATURE: Minimal atherosclerotic calcifications are present throughout the abdominal aorta and it s branches. No evidence of aortic aneurysm. Few pelvic phleboliths. MUSCULOSKELETAL: No acute osseous abnormalities. Mild retrolisthesis of L4 on L5 without evidence of pars defects. LYMPH NODES: No gross evidence for lymphadenopathy. SOFT TISSUE/ABDOMINAL WALL: Unremarkable IMPRESSION: 1. No evidence of obstructive uropathy. Resolution of previously demonstrated right-sided hydronephr osis. The previously demonstrated right distal ureter calculus has passed. 2. Nonobstructive bilateral renal calculi. 3. Redemonstration of multiple bilateral renal cysts. [facility], , 09/15/2024 1:50 PM
== END | disposition home or self-care (01) ==
LOC: RADCTMAIN 11:42
PROVIDERS: ATTEND Urology
DX: N13.2 Hydronephrosis with renal and ureteral calculous obstruction (principal); N28.1 Cyst of kidney, acquired
CPT/HCPCS: 74176

== ENCOUNTER 2024-09-22 08:26 | Day surgery (SDC) | payer OTHER ==
[2024-09-16 12:59] VITALS: BMI 27.9
[2024-09-22] MEDS: IV FLUID CONTINUATION 1,000 ML IV ONE (09:03)
[2024-09-22] MEDS: SODIUM CHLORIDE 0.9% 1,000 ML IV SCH (09:04)
[2024-09-22 09:32] LABS: Basophils # (A) 0.1 k/uL (0-0.2); Basophils % (A) 1 %; Eosinophils # (A) 0.4 k/uL (0-0.7); Eosinophils % (A) 7 %; HCT 45.9 % (39.0-53.0); HGB 15.3 gm/dL (13.0-17.5); Lymphocytes # (A) 1.6 k/uL (1.0-4.8); Lymphocytes % (A) 24 %; MCH 29.6 pg (25.0-35.0); MCHC 33.4 g/dL (31.0-37.0); MCV 88.4 fL (80.0-100.0); Mean Platelet Volume 8.4; Monocytes # (A) 0.3 k/uL (0-1.0); Monocytes % (A) 5 %; Neutrophils % (A) 62 %; Platelet Count 210 k/uL (150-450); RBC 5.19 m/uL (4.30-5.90); RDW 12.5 % (11.5-15.5); WBC 6.5 k/uL (3.8-10.6)
[2024-09-22 09:54] LABS: ALT 22 U/L (4-49); AST 23 U/L (17-59); African American GFR (CKD) 74 (>60 ml/min/1.73 sqM); Albumin 4.8 g/dL (3.5-5.0); Alkaline Phosphatase 69 U/L (38-126); Anion Gap 7 mmol/L; Blood Urea Nitrogen 32 mg/dL (9-20); Calcium 9.4 mg/dL (8.4-10.2); Carbon Dioxide 32 mmol/L (22-30); Chloride 102 mmol/L (98-107); Glucose 90 mg/dL (74-99); Non-African American GFR(CKD) 64 (>60 ml/min/1.73 sqM); Potassium 3.5 mmol/L (3.5-5.1); Sodium 141 mmol/L (137-145); Total Bilirubin 1.1 mg/dL (0.2-1.3); Total Protein 7.5 g/dL (6.3-8.2)
[2024-09-22] MEDS ORDERED: MIDAZOLAM 2 MG/2 ML VIAL ONE (10:19)
[2024-09-22] MEDS ORDERED: ISOPROTERENOL 250 MCG/1.25 ML SYR IV ONE (10:19)
[2024-09-22] MEDS ORDERED: fentaNYL (PF) 50 MCG/ML 2 ML AMP ONE (10:19)
[2024-09-22] MEDS ORDERED: HEPARIN SODIUM,PORCINE 10,000 UNIT/ML 1 ML VIAL ONE (10:19)
[2024-09-22] MEDS ORDERED: WATER FOR INJECTION, STERILE 10 ML VIAL IV ONE (10:19)
[2024-09-22] MEDS: HEPARIN SODIUM,PORCINE 10,000 UNIT in SODIUM CHLORIDE 0.9% 1,000 ML IRRIGATION ONE (10:45)
[2024-09-22] MEDS: LIDOCAINE 1% INJ 10MG/ML (20 ML MDV) SQ ONE (11:06)
[2024-09-22] MEDS: HEPARIN SODIUM (1,000 UNIT/ML) 1,000 UNIT in SODIUM CHLORIDE 0.9% 1,000 ML IRRIGATION ONE (14:13)
[2024-09-22] MEDS: HEPARIN SOD,PORK IN 0.45% NACL 25,000 UNIT in 0.45% NACL 1 250ML.BAG IV ONE (14:22)
[2024-09-22] MEDS ORDERED: ACETAMINOPHEN TAB 325 MG TAB PO PRN (15:20)
--- NOTE | 2024-09-22 15:50 | P.HPCAR ---
History of Present Illness This is Dr. 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 Previously we had mapped the epicardial coronary veins and the PVCs were thought to be endocardial in the base of the inferior wall of the LV and the base of the anterolateral wall of the LV HPI Patient continues to have frequent PVCs. He has a mild cardiomyopathy with a mildly dilated LV. The cardiac MRI reveals successful delivery of RF lesions in the anterior/lateral base of the LV as well as the inferior base The patient continues to have frequent PVCs and intermittent dizzy spells. He is also had nonsustained VT on the monitor ROS: No fever chills or rigors, no cough, phlegm or expectoration, no nausea, vomiting or diarrhea, no hematuria, dysuria, no musculoskeletal complaints, no strokes or seizures, no skin lesions. EXAMINATION: Afebrile, pulse rate 50, blood pressure 166/88 mmHg Heart sounds S1-S2 normal irregular on account of PVCs Abdomen is soft Lungs are clear no rhonchi no crackles REVIEW OF LABS, ECG & MEDICAL DATA White count 6.5 thousand, hematocrit 46 and platelet count 210,000 Sodium 141 potassium 3.5 Creatinine 1.2 LFTs normal Physical Exam Vitals: Vital Signs Temp Pulse Resp BP Pulse Ox 09/22/24 09:20 98.2 F 50 L 16 166/88 97 Intake and Output 09/21/24 09/22/24 09/22/24 22:59 06:59 14:59 Intake Total 50 Balance 50 Intake: IV 50 Other: Weight 85.8 kg Past Medical History Past Medical History: Atrial Fibrillation, Hypertension Additional Past Medical History / Comment(s): hx kidney stones, ascending aortic aneurysm(Dr Olesya [place]), hx migraines, Arthritis in fingers. PVC ablation History of Any Multi-Drug Resistant Organisms: None Reported Past Surgical History: Cardiac Ablation, Heart Catheterization, Hernia Repair, Orthopedic Surgery, Tonsillectomy Additional Past Surgical History / Comment(s): lithotripsy x 6 times; macular pucker surgery rt eye, inguinal hernia, rt hand ganglion cyst, rt foot toe /pinned, left foot surgery,cataract rt eye, nasal surgery, COLONOSCOPY Past Anesthesia/Blood Transfusion Reactions: Motion Sickness, Postoperative Nausea & Vomiting (PONV) Additional Past Anesthesia/Blood Transfusion Reaction / Comment(s): hx nausea after lithotripsy Smoking Status: Never smoker - Past Family History Mother Family Medical History: Cancer Additional Family Medical History / Comment(s): . Father Additional Family Medical History / Comment(s): rheumatic fever when young. Father at age 86 from old age. Sister(s) Additional Family Medical History / Comment(s): Patient has one sister that from some type of myelodysplastic disorder Daughter(s) Family Medical History: No Reported History Additional Family Medical History / Comment(s): . Physical Examination Vital Signs Temp Pulse Resp BP Pulse Ox 09/22/24 09:20 98.2 F 50 L 16 166/88 97 Intake and Output 09/21/24 09/22/24 09/22/24 22:59 06:59 14:59 Intake Total 50 Balance 50 Intake: IV 50 Other: Weight 85.8 kg Results 09/22/24 09:14 09/22/24 09:10 Cardiac Enzymes 09/22/24 Range/Units 09:10 AST 23 (17-59) U/L CBC 09/22/24 Range/Units 09:14 WBC 6.5 (3.8-10.6) k/uL RBC 5.19 (4.30-5.90) m/uL Hgb 15.3 (13.0-17.5) gm/dL Hct 45.9 (39.0-53.0) % Plt Count 210 (150-450) k/uL Comprehensive Metabolic Panel 09/22/24 Range/Units 09:10 Sodium 141 (137-145) mmol/L Potassium 3.5 (3.5-5.1) mmol/L Chloride 102 (98-107) mmol/L Carbon Dioxide 32 H (22-30) mmol/L BUN 32 H (9-20) mg/dL Creatinine 1.16 (0.66-1.25) mg/dL Glucose 90 (74-99) mg/dL Calcium 9.4 (8.4-10.2) mg/dL AST 23 (17-59) U/L ALT 22 (4-49) U/L Alkaline Phosphatase 69 (38-126) U/L Total Protein 7.5 (6.3-8.2) g/dL Albumin 4.8 (3.5-5.0) g/dL Current Medications Generic Name Dose Route Start Last Admin Trade Name Freq PRN Reason Stop Dose Admin Sodium Chloride 1,000 mls @ 20 mls/hr 09/17/24 11:45 09/22/24 09:04 Saline 0.9% IV 10/17/24 11:44 20 mls/hr .Q24H LEANNE Administration Intake and Output 09/21/24 09/22/24 09/22/24 22:59 06:59 14:59 Intake Total 50 Balance 50 Intake: IV 50 Other: Weight 85.8 kg Patient Weight 09/23/24 06:59 Weight 85.8 kg 09/22/24 09:14 09/22/24 09:10
[2024-09-22] MEDS: ACETAMINOPHEN IV (For NPO) 1,000 MG in EMPTY BAG 1 BAG IVPB ONE (17:34)
[2024-09-22] MEDS: SODIUM BICARBONATE TAB 650 MG TAB PO SCH (18:20)
[2024-09-22] MEDS: ALPRAZolam 0.25 MG TAB PO STA (22:19)
[2024-09-23 07:28] VITALS: BP 159/87; PULSE 53; RESP 17; TEMP 98.3
[2024-09-23] MEDS: CHLORTHALIDONE 25 MG TAB PO SCH (08:15)
[2024-09-23] MEDS: LOSARTAN 25 MG TAB PO SCH (08:15)
--- NOTE | 2024-09-23 10:08 | P.DS ---
Providers Attending physician: Ethan Harrison Primary care physician: [facility] Course: Patient is doing well. No chest discomfort dizziness lightheadedness Minor oozing from the left groin but this is resolved. No hematoma no swelling no tenderness No pleuritic chest discomfort no dizziness lightheadedness no arrhythmias EKG was normal this morning Heart sounds are normal breath sounds are clear no rhonchi no crackles No rub no gallop Blood pressure 137/81 mmHg pulse rate 53 beats a minute Impression Frequent PVCs associated with mild cardiomyopathy Multiple different PVCs with different morphologies/foci 1 predominant focus on the superior base of the left ventricle chest pain of the mitral annulus, high density mapping identified the focus Successful RF ablation of this focus which was inducing both PVCs as well as nonsustained VT Mildly prolonged MT interval at baseline Plan Discharge home on nadolol 20 mg p.o. daily to suppress other frequent PVCs. These PVCs were not amenable to mapping on account of multiple and differing morphologies/foci without any consistency Follow-up with Dr. Dacosta Assessment: Post EP study Instructions 1. Keep access sites dry for 2 days 2. No heavy lifting or straining for 2 days 3. Avoid bending the hips repeatedly for 2 days 4. You may go up and down stairs slowly Call if the following is noted !. Bleeding, increasing swelling or pain at the access sites 2. Increasing chest discomfort, especially upon taking a deep breath 3. Increasing shortness of breath, at rest or with exertion 4. Undue cough/phlegm 5.Difficulty or pain while swallowing 6. Pain or change in color in the extremities 7. Fever, chills, rigors 8. Increasing headache or neurologic symptoms 9. Dizziness, fainting, palpitations Plan - Discharge Summary Discharge Rx Participant: No New Discharge Prescriptions: New nadoloL 20 mg PO DAILY #90 tablet No Action Sodium Bicarbonate Tab 650 mg PO TID Chlorthalidone [Hygroton] 25 mg PO DAILY Losartan [Cozaar] 25 mg PO DAILY Discharge Medication List Chlorthalidone [Hygroton] 25 mg PO DAILY 09/15/22 [History] Losartan [Cozaar] 25 mg PO DAILY 09/15/22 [History] Sodium Bicarbonate Tab 650 mg PO TID 07/03/24 [History] nadoloL 20 mg PO DAILY #90 tablet 09/22/24 [Rx] Follow up Appointment(s)/Referral(s): Bubba Dacosta MD [STAFF PHYSICIAN] - 10/07/24 3:15 pm Patient Instructions/Handouts: Cardiac Ablation (DC) Activity/Diet/Wound Care/Special Instructions: Post EP study - Ablation instructions 1. Keep access sites dry for 2 days. 2. No heavy lifting or straining for 2 days. 3. Avoid bending the hips repeatedly for 2 days. 4. You may go up and down stairs slowly 5. If you have had an ablation for atrial fibrillation or atrial flutter and are on a blood thinner, do not stop the blood thinner even temporarily for 3 months post ablation Call if the following is noted 1. Bleeding, increasing swelling or pain at the access sites. 2. Increasing chest discomfort, especially upon taking a deep breath. 3. Increasing shortness of breath, at rest or with exertion. 4. Undue cough / phlegm 5. Difficulty or pain while swallowing. 6. Pain or change in color in the extremities. 7. Fever, chills, rigors. 8. Increasing headache or neurologic symptoms. 9. Dizziness, fainting, palpitations Nadolol 20 mg p.o. daily, new medication Discharge Disposition: HOME SELF-CARE
[2024-09-23] MEDS: ASPIRIN 81 MG PO STA (10:21)
--- NOTE | 2024-09-30 17:40 | P.EPPROC ---
- EP Procedure Note Electrophysiology Procedure Note: Diagnosis Frequent PVCs, mild nonischemic cardiomyopathy with normal coronary arteries High PVC burden and nonsustained VT Final diagnosis Most frequent PVC focus from the base of the left ventricle anteriorly close to the mitral annulus Successful high density mapping with the octrel catheter followed by successful ablation of the PVC focus/nonsustained VT focus Diagnosis EP study revealed multiple different foci of PVCs, too numerous to be mapped and ablated On Isopril there was an increase in PVC burden but of varying and multiple different morphologies, unsuitable for mapping Mildly prolonged WY interval at baseline, hypertension, enlarged aortic root, mild cardiomyopathy on cardiac MRI 2 lesions of delayed enhancement, subendocardial related to previous ablations Plan Start nadolol 20 mg p.o. daily Details Patient is brought to the EP lab in a fasting state. Written informed consent was obtained prior to the procedure. Mild conscious sedation was provided Venous access obtained in the right left femoral veins Diagnostic catheters were positioned in the atria coronary sinus right ventricle and left ventricle and left atria. IV heparin given through the procedure Patient is experiencing PVCs of multiple different morphologies but one of the PVCs originating from the superior based of the LV was the most frequent consistent 1 Sinus cycle length 998 ms, WY interval 228 ms, QRS 190 ms and QT 378 ms AH 121 ms and HV interval 58 ms Intracardiac echo was performed. Thickened pericardium noted. Near normal LV and RV size and function noted. Falls chordae noted in the left ventricle. No intracardiac mass, no left atrial appendage thrombus noted. 3D anatomic mapping performed with intracardiac echo to define the left ventricle, papillary muscles, mitral valve. Left and right transseptal catheterization was performed. We planned a trans-mitral approach to the left ventricle. A coronary sinus catheter was placed in the coronary sinus for mapping. This catheter was placed as far distally as possible to cotton picker operator far field ventricular signals RA pressure 7/0/3 mmHg LA pressure 14/2/7 mmHg 3D electroanatomic mapping was performed with activation mapping of this PVC with an RS pattern in lead I, upright in the inferior leads and a right bundle branch block like morphology and upright in all precordial leads. High density mapping was performed and this was localized to the superior mitral annulus area just beyond the mitral valve. RF ablation was then performed at the site. 40 W of power was used. Good contact force. This PVC was completely eliminated. During PVC ablation runs of nonsustained VT, asthma seen during the event mo faye, was also noted and this was successfully ablated. Pacing was performed from the LV Following that in the baseline state we saw frequent PVCs but of completely differing morphologies. The ablated PVC was not noted any further Isopril was then started high dose and then at 2 mics. The patient had increased PVCs ventricular couplets triplets and nonsustained VT but of differing morphologies, not suitable for mapping. Isopril was stopped and full EP study was performed with burst stimulation in the right ventricle as well as double extrastimuli from 2 sites. Sustained VT or sustained VF could not be induced. All catheters were removed. Closure devices were placed. Hemostasis was assured
== END 2024-09-23 11:11 | disposition home or self-care (01) ==
LOC: CATHEP 08:26 → 6NMEDSUR 14:18 → CATHEP 09-23 11:11
PROVIDERS: ATTEND Internal Medicine Clinical Cardiac Electrophysiology
DX: I49.3 Ventricular premature depolarization (principal); I48.91 Unspecified atrial fibrillation; I10 Essential (primary) hypertension; I42.8 Other cardiomyopathies; I45.10 Unspecified right bundle-branch block; I47.20 Ventricular tachycardia, unspecified; J45.909 Unspecified asthma, uncomplicated; Z90.89 Acquired absence of other organs; Z87.442 Personal history of urinary calculi; Z98.890 Other specified postprocedural states; Z79.899 Other long term (current) drug therapy
CPT/HCPCS: 93462; 93623; 93662; 93654; 86900; 86901; 80053; 85025; 86850; J2250; J1644 ×3; J2003; J3010; J0131

== ENCOUNTER 2024-09-25 06:09 | Emergency (ER) | payer OTHER ==
[2024-09-25 06:13] VITALS: RESP 18
--- NOTE | 2024-09-25 06:30 | ED ---
Abdominal Pain HPI - General Chief Complaint: Abdominal Pain Stated Complaint: Rt ABD Pain Time Seen by Provider: 09/25/24 06:16 Source: patient, RN notes reviewed Mode of arrival: ambulatory Limitations: no limitations - History of Present Illness Initial Comments: 69-year-old male presents emergency department with chief complaint of sudden onset of right-sided flank pain. Patient states he has a large history of kidney stones he stated that he had a CT little over a week ago. Patient states pain is quite severe waxes and wanes and is causing some nausea. He did take a [place] earlier which seemed to help some but the pain intensified. No fevers or chills no prior abdominal surgeries states his difficulty urinating feels like a stone. Patient denies any chest pain or shortness of breath. - Related Data Home Medications Medication Instructions Recorded Confirmed Chlorthalidone [Hygroton] 25 mg PO DAILY 09/15/22 09/16/24 Losartan [Cozaar] 25 mg PO DAILY 09/15/22 09/16/24 Sodium Bicarbonate Tab 650 mg PO TID 07/03/24 09/16/24 Previous Rx's Medication Instructions Recorded nadoloL 20 mg PO DAILY #90 tablet 09/22/24 Aspirin EC [Ecotrin Low Dose] 81 mg PO DAILY #30 tab 09/23/24 HYDROcodone/APAP 7.5-325MG [[place] 1 tab PO Q6HR PRN 3 Days #12 tab 09/25/24 7.5-325] Ondansetron Odt [Zofran Odt] 4 mg PO Q8HR PRN #10 tab 09/25/24 Allergies Allergy/AdvReac Type Severity Reaction Status Date / Time regadenoson [From Lexiscan] Allergy Rash/Hives Verified 09/25/24 06:13 sulfamethoxazole Allergy Rash/Hives Verified 09/25/24 06:13 [From Bactrim] trimethoprim [From Bactrim] Allergy Rash/Hives Verified 09/25/24 06:13 Review of Systems ROS Statement: Those systems with pertinent positive or pertinent negative responses have been documented in the HPI. ROS Other: All systems not noted in ROS Statement are negative. Past Medical History Past Medical History: Atrial Fibrillation, Hypertension Additional Past Medical History / Comment(s): hx kidney stones, ascending aortic aneurysm(Dr Dacosta monitors), hx migraines, Arthritis in fingers. PVC ablation History of Any Multi-Drug Resistant Organisms: None Reported Past Surgical History: Ablation, Cardiac Ablation, Heart Catheterization, Hernia Repair, Orthopedic Surgery, Tonsillectomy Additional Past Surgical History / Comment(s): lithotripsy x 6 times; macular pucker surgery rt eye, inguinal hernia, rt hand ganglion cyst, rt foot toe /pinned, left foot surgery,cataract rt eye, nasal surgery, COLONOSCOPY Past Anesthesia/Blood Transfusion Reactions: Motion Sickness, Postoperative Nausea & Vomiting (PONV) Additional Past Anesthesia/Blood Transfusion Reaction / Comment(s): hx nausea after lithotripsy Past Psychological History: No Psychological Hx Reported Smoking Status: Never smoker Past Alcohol Use History: Occasional Past Drug Use History: None Reported - Past Family History Mother Family Medical History: Cancer Additional Family Medical History / Comment(s): . Father Additional Family Medical History / Comment(s): rheumatic fever when young. Father at age 86 from old age. Sister(s) Additional Family Medical History / Comment(s): Patient has one sister that from some type of myelodysplastic disorder Daughter(s) Family Medical History: No Reported History Additional Family Medical History / Comment(s): . General Exam Limitations: no limitations General appearance: alert, in no apparent distress Head exam: Present: atraumatic, normocephalic, normal inspection Neck exam: Present: normal inspection, full ROM. Absent: tenderness, meningismus, lymphadenopathy Respiratory exam: Present: normal lung sounds bilaterally. Absent: respiratory distress, wheezes, rales, rhonchi, stridor Cardiovascular Exam: Present: regular rate, normal rhythm, normal heart sounds. Absent: systolic murmur, diastolic murmur, rubs, gallop, clicks GI/Abdominal exam: Present: soft, normal bowel sounds. Absent: distended, tenderness, guarding, rebound, rigid Back exam: Present: CVA tenderness (R). Absent: CVA tenderness (L) Neurological exam: Present: alert, oriented X3, CN II-XII intact Skin exam: Present: warm, dry, intact, normal color. Absent: rash Course Vital Signs 09/25/24 09/25/24 09/25/24 06:12 08:18 10:19 Temperature 97.3 F L 98.0 F Pulse Rate 75 73 77 Respiratory 18 18 18 Rate Blood Pressure 167/75 157/92 121/81 O2 Sat by Pulse 98 97 96 Oximetry Medical Decision Making - Medical Decision Making Was pt. sent in by a medical professional or institution (, DOROTHEA, HUNTING SALES ASSOCIATE, urgent c are, hospital, or intermediate...) When possible be specific @ -No Did you speak to anyone other than the patient for history (EMS, parent, family, police, friend...)? What history was obtained from this source @ -No Did you review nursing and triage notes (agree or disagree)? Why? @ -I reviewed and agree with nursing and triage notes Were old charts reviewed (outside hosp., previous admission, EMS record, old EKG, old radiological studies, urgent care reports/EKG's, intermediate records)? Report findings @ -No old charts were reviewed Differential Diagnosis (chest pain, altered mental status, abdominal pain women, abdominal pain men, vaginal bleeding, weakness, fever, dyspnea, syncope, h eadache, dizziness, GI bleed, back pain, seizure, CVA, palpatations, mental health, musculoskeletal)? @ -Differential Abdominal Pain Men: Appendicitis, cholecystitis, diverticulosis, ischemic bowel, pancreatitis, hepatitis, UTI, gastroenteritis, AAA, incarcerated hernia, bowel obstruction, constipation, inflammatory bowel, hepatitis, peptic ulcer disease, splenic infarction, perforated viscus, testicular torsion, this is not meant to be an all-inclusive list EKG interpreted by me (3pts min.). @ -As above X-rays interpreted by me (1pt min.). @ -None done CT interpreted by me (1pt min.). @ -CT abdomen pelvis showing 2 mm distal ureteral calculus, there is concern for pyelo-sinus backflow U/S interpreted by me (1pt. min.). @ -None done What testing was considered but not performed or refused? (CT, X-rays, U/S, labs)? Why? @ -None What meds were considered but not given or refused? Why? @ -None Did you discuss the management of the patient with other professionals (professionals i.e. DOROTHEA Anthony, HUNTING SALES ASSOCIATE, lab, RT, psych nurse, social service manager, pound attendant, teacher, hotel security officer, case assembler)? Give summary @ -Discussed case with on-call urologist Dr. Castillo who reviewed CT advised patient to continue his Flomax, follow-up with Dr. Chase tomorrow or Sunday and return for any worsening symptoms. Was smoking cessation discussed for >3mins.? @ -No Was critical care preformed (if so, how long)? @ -No Were there social determinants of health that impacted care today? How? (Homelessness, low income, unemployed, alcoholism, drug addiction, transportation, low edu. Level, literacy, decrease access to med. care, usp, rehab)? @ -No Was there de-escalation of care discussed even if they declined (Discuss DNR or withdrawal of care, Hospice)? DNR status @ -No What co-morbidities impacted this encounter? (DM, HTN, Smoking, COPD, CAD, Cancer, CVA, ARF, Chemo, Hep., AIDS, mental health diagnosis, sleep apnea, morbid obesity)? @ -None Was patient admitted / discharged? Hospital course, mention meds given and route, prescriptions, significant lab abnormalities, going to OR and other pertinent info. @ -Discharged patient does greater than good at this time he understands following up with urology tomorrow return transfer discussed. He will continue his Flomax in which she has at home. Undiagnosed new problem with uncertain prognosis? @ -No Drug Therapy requiring intensive monitoring for toxicity (Heparin, Nitro, Insulin, Cardizem)? @ -No Were any procedures done? @ -No Diagnosis/symptom? @ -Ureteral calculus Acute, or Chronic, or Acute on Chronic? @ -Acute Uncomplicated (without systemic symptoms) or Complicated (systemic symptoms)? @ -Uncomplicated Side effects of treatment? @ -No Exacerbation, Progression, or Severe Exacerbation? @ -No Poses a threat to life or bodily function? How? (Chest pain, [place], VA, pneumonia, PE, COPD, DKA, ARF, appy, cholecystitis, CVA, Diverticulitis, Homicidal, Suicidal, threat to staff... and all critical care pts) @ -No - Lab Data Result diagrams: 09/25/24 06:26 09/25/24 06:26 Lab Results 09/25/24 09/25/24 09/25/24 Range/Units 06:26 06:26 06:46 WBC 14.8 H (3.8-10.6) k/uL RBC 5.06 (4.30-5.90) m/uL Hgb 15.2 (13.0-17.5) gm/dL Hct 43.8 (39.0-53.0) % MCV 86.6 (80.0-100.0) fL MCH 30.1 (25.0-35.0) pg MCHC 34.8 (31.0-37.0) g/dL RDW 12.3 (11.5-15.5) % Plt Count 223 (150-450) k/uL MPV 8.2 Neutrophils % 84 % Lymphocytes % 8 % Monocytes % 3 % Eosinophils % 3 % Basophils % 0 % Neutrophils # 12.4 H (1.3-7.7) k/uL Lymphocytes # 1.2 (1.0-4.8) k/uL Monocytes # 0.5 (0-1.0) k/uL Eosinophils # 0.5 (0-0.7) k/uL Basophils # 0.0 (0-0.2) k/uL Sodium 137 (137-145) mmol/L Potassium 3.9 (3.5-5.1) mmol/L Chloride 103 (98-107) mmol/L Carbon Dioxide 27 (22-30) mmol/L Anion Gap 7 mmol/L BUN 33 H (9-20) mg/dL Creatinine 1.33 H (0.66-1.25) mg/dL Est GFR (CKD-EPI)AfAm 63 (>60 ml/min/1.73 sqM) Est GFR (CKD-EPI)NonAf 55 (>60 ml/min/1.73 sqM) Glucose 124 H (74-99) mg/dL Calcium 9.5 (8.4-10.2) mg/dL Total Bilirubin 1.0 (0.2-1.3) mg/dL AST 34 (17-59) U/L ALT 27 (4-49) U/L Alkaline Phosphatase 71 (38-126) U/L Total Protein 7.1 (6.3-8.2) g/dL Albumin 4.7 (3.5-5.0) g/dL Amylase 58 (30-110) U/L Lipase 68 (23-300) U/L Urine Color Colorless Urine Appearance Clear (Clear) Urine pH 7.0 (5.0-8.0) Ur Specific [place] 1.009 (1.001-1.035) Urine Protein Negative (Negative) Urine Glucose (UA) Trace H (Negative) Urine Ketones 1+ H (Negative) Urine Blood Trace H (Negative) Urine Nitrite Negative (Negative) Urine Bilirubin Negative (Negative) Urine Urobilinogen <2.0 (<2.0) mg/dL Ur Leukocyte Esterase Negative (Negative) Urine RBC 3 (0-5) /hpf Urine WBC <1 (0-5) /hpf Ur Squamous Epith Cells <1 (0-4) /hpf Hyaline Casts 1 (0-2) /lpf Urine Mucus Rare H (None) /hpf Disposition Clinical Impression: Right ureteral calculus Disposition: HOME SELF-CARE Condition: Stable Instructions (If sedation given, give patient instructions): Kidney Stones (ED) Additional Instructions: Please follow-up with urology tomorrow or Sunday as directed. Please return to the Emergency Department if symptoms worsen or any other concerns. Prescriptions: HYDROcodone/APAP 7.5-325MG [[place] 7.5-325] 1 tab PO Q6HR PRN 3 Days #12 tab PRN Reason: Pain Ondansetron Odt [Zofran Odt] 4 mg PO Q8HR PRN #10 tab PRN Reason: Nausea Is patient prescribed a controlled substance at d/c from ED?: Yes When asked, does pt state using other controlled substances?: No If prescribed controlled substance>3 days was MAPS reviewed?: Prescribed <3 Days If opioid is for acute pain is fill amount 7 days or less?: Yes If Rx opioid, was Start Talking consent form obtained?: Yes Referrals: Zheng Velazquez MD [STAFF PHYSICIAN] - 1-2 days Epi Chase MD [STAFF PHYSICIAN] - 1-2 days Time of Disposition: 10:06
[2024-09-25 06:33] LABS: Basophils % (A) 0 %; Eosinophils # (A) 0.5 k/uL (0-0.7); Eosinophils % (A) 3 %; HCT 43.8 % (39.0-53.0); HGB 15.2 gm/dL (13.0-17.5); Lymphocytes # (A) 1.2 k/uL (1.0-4.8); Lymphocytes % (A) 8 %; MCH 30.1 pg (25.0-35.0); MCHC 34.8 g/dL (31.0-37.0); MCV 86.6 fL (80.0-100.0); Mean Platelet Volume 8.2; Monocytes # (A) 0.5 k/uL (0-1.0); Monocytes % (A) 3 %; Neutrophils # (A) 12.4 k/uL (1.3-7.7); Neutrophils % (A) 84 %; Platelet Count 223 k/uL (150-450); RBC 5.06 m/uL (4.30-5.90); RDW 12.3 % (11.5-15.5); WBC 14.8 k/uL (3.8-10.6)
[2024-09-25] MEDS: SODIUM CHLORIDE 0.9% 1,000 ML IV ONE (06:39)
[2024-09-25] MEDS: SODIUM CHLORIDE 0.9% 500 ML 500 ML IV STA (06:39)
[2024-09-25] MEDS: HYDROmorphone 1 MG/ML 1 ML SYRINGE IVP STA (06:40)
[2024-09-25] MEDS: KETOROLAC 15 MG/ML 1 ML VIAL IVP STA (06:40)
[2024-09-25] MEDS: ONDANSETRON 4 MG/2 ML VIAL IVP STA (06:40)
[2024-09-25 06:44] LABS: ALT 27 U/L (4-49); AST 34 U/L (17-59); African American GFR (CKD) 63 (>60 ml/min/1.73 sqM); Albumin 4.7 g/dL (3.5-5.0); Alkaline Phosphatase 71 U/L (38-126); Amylase 58 U/L (30-110); Anion Gap 7 mmol/L; Blood Urea Nitrogen 33 mg/dL (9-20); Calcium 9.5 mg/dL (8.4-10.2); Carbon Dioxide 27 mmol/L (22-30); Chloride 103 mmol/L (98-107); Glucose 124 mg/dL (74-99); Lipase 68 U/L (23-300); Non-African American GFR(CKD) 55 (>60 ml/min/1.73 sqM); Potassium 3.9 mmol/L (3.5-5.1); Sodium 137 mmol/L (137-145); Total Protein 7.1 g/dL (6.3-8.2)
[2024-09-25 07:03] LABS: Appearance,Urine Clear (Clear); Bilirubin,Urine Negative (Negative); Blood,Urine Trace (Negative); Color,Urine Colorless; Glucose,Urine (UA) Trace (Negative); Hyaline Casts,Urine 1 /lpf (0-2); Ketones,Urine 1+ (Negative); Leukocyte Esterase,Urine Negative (Negative); Mucus,Urine Rare /hpf; Nitrite,Urine Negative (Negative); Protein,Urine Negative (Negative); RBC,Urine 3 /hpf (0-5); Specific Gravity,Urine 1.009 (1.001-1.035); Squamous Epithelial Cell,Urine <1 /hpf (0-4); Urobilinogen,Urine <2.0 mg/dL (<2.0); WBC,Urine <1 /hpf (0-5)
--- NOTE | 2024-09-25 08:14 | CT ---
EXAMINATION TYPE: CT abdomen pelvis w con DATE OF EXAM: 09/25/2024 7:41 AM COMPARISON: 09/15/2024 CLINICAL INDICATION: Male, 69 years old with history of RLQ pain, RLQ PAIN, TECHNIQUE: Contiguous axial scanning of the abdomen and pelvis following administration of 100 ml Iso alan 300 IV contrast. Delayed images through the kidneys and coronal/sagittal reconstructions perform ed. CT DLP: 923.7 mGycm, Automated exposure control for dose reduction was used. FINDINGS: The heart is borderline to mildly enlarged with trace anterior basilar pericardial fluid. Some stranding densities probably atelectasis of the lower lungs. No pleural effusion. Interval development of very mild anasarca changes. Left kidney demonstrates numerous cysts, largest measuring 7.7 cm. Approximately 5 nonobstructive lef t renal stones, largest measuring 7 mm. A number of right renal cysts as well, largest measuring 5.1 cm. There are a couple punctate 1 mm rig ht renal stones. Moderate perinephric edema has developed in the interval. Mild right-sided hydroneph rosis with a 2 mm stone distal right ureter, axial image 77. No excretion of contrast into the collec ting system on the delayed scan. No focal liver lesion or biliary ductal dilatation. Portal venous system is patent. Gallbladder, adrenal glands, spleen, hilar splenule, pancreas within normal limits. No dilated small bowel or free air. Normal appendix. Mild stool burden. No pericolonic inflammatory change. Bladder urine distended. Prostate gland mildly enlarged 4.5 cm wide. Left-sided pelvic phleboliths. T race right pelvic free fluid. No pelvic lymphadenopathy seen. Bones: Mild degenerative disc disease L4-L5. Facet arthropathy lower lumbar spine with trace grade 1 retrolisthesis. IMPRESSION: 1. A punctate 2 mm stone at the distal right ureter causing a fairly moderate obstructive uropathy as there is no excretion of contrast from the right kidney on delayed scan. 2. The presence of moderate perinephric edema on the right probably reactive to the obstruction. Some associated pyelosinus backflow is possible as well. This would explain the trace pelvic free fluid. 3. Additional bilateral nephrolithiasis measuring up to 7 mm. 4. Redemonstrated numerous bilateral renal cysts measuring up to 7.7 cm. [facility], , 09/25/2024 8:12 AM
[2024-09-25] MEDS: METOCLOPRAMIDE 5 MG/ML 2 ML VIAL IVP STA (08:24)
[2024-09-25 10:20] VITALS: BP 121/81; PULSE 77; TEMP 98
== END 2024-09-25 10:20 | disposition home or self-care (01) ==
LOC: EC 06:09
DX: N20.2 Calculus of kidney with calculus of ureter (principal); Z88.2 Allergy status to sulfonamides; Z88.1 Allergy status to other antibiotic agents; Z88.8 Allergy status to other drugs, medicaments and biological substances
CPT/HCPCS: 36415; 80053; 82150; 83690; 85025; 81001; 74177; 99284; 96374; 96375 ×3; 96361; J2765; J2405; J1171; J1885; Q9967

== ENCOUNTER 2024-10-01 00:59 | Emergency (ER) | payer OTHER ==
[2024-10-01 01:08] VITALS: BP 141/94; PULSE 63; RESP 16; TEMP 97.9
--- NOTE | 2024-10-01 01:49 | ED ---
General Adult HPI - General Chief complaint: Urogenital Stated complaint: ABD Pain Time Seen by Provider: 10/01/24 01:22 Source: patient Mode of arrival: ambulatory Limitations: no limitations - History of Present Illness Initial comments: Dictation was produced using [employer] dictation software. please excuse any grammatical, word or spelling errors. Chief Complaint: 69-year-old male with left-sided flank pain History of Present Illness: Patient 69-year-old male presents emergency department left-sided flank pain. Patient has been having flank pain since yesterday. Has known history of nephrolithiasis and follows up with urology. Denies any fever. Does complains of mild nausea. No vomiting. States that the pain is undulating in nature. Denies any hematuria. No fever or constitutional symptoms. Pain is nonradiating The ROS documented in this emergency department record has been reviewed and confirmed by me. Those systems with pertinent positive or negative responses have been documented in the HPI. All other systems are other negative and/or noncontributory. - Related Data Home Medications Medication Instructions Recorded Confirmed Chlorthalidone [Hygroton] 25 mg PO DAILY 09/15/22 09/16/24 Losartan [Cozaar] 25 mg PO DAILY 09/15/22 09/16/24 Sodium Bicarbonate Tab 650 mg PO TID 07/03/24 09/16/24 Previous Rx's Medication Instructions Recorded nadoloL 20 mg PO DAILY #90 tablet 09/22/24 Aspirin EC [Ecotrin Low Dose] 81 mg PO DAILY #30 tab 09/23/24 HYDROcodone/APAP 7.5-325MG [[place] 1 tab PO Q6HR PRN 3 Days #12 tab 09/25/24 7.5-325] Ondansetron Odt [Zofran Odt] 4 mg PO Q8HR PRN #10 tab 09/25/24 Allergies Allergy/AdvReac Type Severity Reaction Status Date / Time regadenoson [From Lexiscan] Allergy Rash/Hives Verified 10/01/24 01:08 sulfamethoxazole Allergy Rash/Hives Verified 10/01/24 01:08 [From Bactrim] trimethoprim [From Bactrim] Allergy Rash/Hives Verified 10/01/24 01:08 Review of Systems ROS Statement: Those systems with pertinent positive or pertinent negative responses have been documented in the HPI. ROS Other: All systems not noted in ROS Statement are negative. Past Medical History Past Medical History: Atrial Fibrillation, Hypertension Additional Past Medical History / Comment(s): hx kidney stones, ascending aortic aneurysm(Dr Olesya winchester), hx migraines, Arthritis in fingers. PVC ablation History of Any Multi-Drug Resistant Organisms: None Reported Past Surgical History: Ablation, Cardiac Ablation, Heart Catheterization, Hernia Repair, Orthopedic Surgery, Tonsillectomy Additional Past Surgical History / Comment(s): lithotripsy x 6 times; macular pucker surgery rt eye, inguinal hernia, rt hand ganglion cyst, rt foot toe /pinned, left foot surgery,cataract rt eye, nasal surgery, COLONOSCOPY Past Anesthesia/Blood Transfusion Reactions: Motion Sickness, Postoperative Nausea & Vomiting (PONV) Additional Past Anesthesia/Blood Transfusion Reaction / Comment(s): hx nausea after lithotripsy Past Psychological History: No Psychological Hx Reported Smoking Status: Never smoker Past Alcohol Use History: Occasional Past Drug Use History: None Reported - Past Family History Mother Family Medical History: Cancer Additional Family Medical History / Comment(s): . Father Additional Family Medical History / Comment(s): rheumatic fever when young. Father at age 86 from old age. Sister(s) Additional Family Medical History / Comment(s): Patient has one sister that from some type of myelodysplastic disorder Daughter(s) Family Medical History: No Reported History Additional Family Medical History / Comment(s): . General Exam - General Exam Comments Initial Comments: PHYSICAL EXAM: General Impression: Alert and oriented x3, mild distress secondary to pain HEENT: Normocephalic atraumatic, extra-ocular movements intact, pupils equal and reactive to light bilaterally, mucous membranes moist. Cardiovascular: Heart regular rate and rhythm Chest: Able to complete full sentences, no retractions, no tachypnea Abdomen: abdomen soft, non-tender, non-distended, no organomegaly Musculoskeletal: Pulses present and equal in all extremities, no peripheral edema Motor: no focal deficits noted Neurological: CN II-XII grossly intact, no focal motor or sensory deficits noted Skin: Intact with no visualized rashes Psych: Normal affect and mood Limitations: no limitations Course Vital Signs 10/01/24 01:05 Temperature 97.9 F Pulse Rate 63 Respiratory 16 Rate Blood Pressure 141/94 O2 Sat by Pulse 97 Oximetry Medical Decision Making - Medical Decision Making Was pt. sent in by a medical professional or institution (, PA, CARRIER OPERATOR, urgent care, hospital, or care home...) When possible be specific @ -No Did you speak to anyone other than the patient for history (EMS, parent, family, police, friend...)? What history was obtained from this source @ -No Did you review nursing and triage notes (agree or disagree)? Why? @ -I reviewed and agree with nursing and triage notes Were old charts reviewed (outside hosp., previous admission, EMS record, old EKG, old radiological studies, urgent care reports/EKG's, care home records)? Report findings @ -No old charts were reviewed Differential Diagnosis (chest pain, altered mental status, abdominal pain women, abdominal pain men, vaginal bleeding, musculoskeletal, weakness, fever, dyspnea, syncope, headache, dizziness, GI bleed, back pain, seizure, CVA, palpatations, mental health)? @ -Differential Abdominal Pain Men: Appendicitis, cholecystitis, diverticulosis, ischemic bowel, pancreatitis, hepatitis, UTI, gastroenteritis, AAA, incarcerated hernia, bowel obstruction, constipation, inflammatory bowel, hepatitis, peptic ulcer disease, splenic infarction, perforated viscus, testicular torsion, this is not meant to be an all-inclusive list EKG interpreted by me (3pts min.). @ -None done X-rays interpreted by me (1pt min.). @ -None done CT interpreted by me (1pt min.). @ -CT shows proximal ureteral left stone with hydronephrosis U/S interpreted by me (1pt. min.). @ -None done What testing was considered but not performed or refused? (CT, X-rays, U/S, labs)? Why? @ -None What meds were considered but not given or refused? Why? @ -None Was smoking cessation discussed for >3mins.? @ -No Were there social determinants of health that impacted care today? How? (Homelessness, low income, unemployed, alcoholism, drug addiction, transportation, low edu. Level, literacy, decrease access to med. care, [place] [facility], rehab)? @ -No Was there de-escalation of care discussed even if they declined (Discuss DNR or withdrawal of care, Hospice)? DNR status @ -No What co-morbidities impacted this encounter? (DM, HTN, Smoking, COPD, CAD, Cancer, CVA, ARF, Chemo, Hep., AIDS, mental health diagnosis, sleep apnea, morbid obesity)? @ -History of kidney stones Was patient admitted / discharged? Hospital course, mention meds given and route, prescriptions, significant lab abnormalities, going to OR and other pertinent info. @ -69-year-old male presents emergency department left-sided flank pain he has extensive kidney stone history. Vital signs upon arrival are within acceptable limits. Patient in mild distress. CT shows proximal 8 mm left ureteral stone. Labs are within acceptable limits. Patient given IV fluids and Toradol. Patient requesting discharge due to significant delays in ER wait times. States that he wants to follow-up with his urologist tomorrow. Patient states he feels well enough to go home after symptomatic treatment. Did you discuss the management of the patient with other professionals (professionals i.e. , PA, CARRIER OPERATOR, lab, RT, psych nurse, social media specialist, dredge boat engineer, teacher, environmental health officer, medical case manager)? Give summary @ -No Was critical care preformed (if so, how long)? @ -No Undiagnosed new problem with uncertain prognosis? @ -No Drug Therapy requiring intensive monitoring for toxicity (Heparin, Nitro, Insulin, Cardizem)? @ -No Were any procedures done? @ -No Diagnosis/symptom? Acute, or Chronic, or Acute on Chronic? Uncomplicated (without systemic symptoms) or Complicated (systemic symptoms)? @ -Symptomatic nephrolithiasis Side effects of treatment? @ -No Exacerbation, Progression, or Severe Exacerbation? @ -No Poses a threat to life or bodily function? How? (Chest pain, [place], [place], pneumonia, PE, COPD, DKA, ARF, appy, cholecystitis, CVA, Diverticulitis, Homicidal, Suicidal, threat to staff... and all critical care pts) @ -No - Lab Data Result diagrams: 10/01/24 01:58 10/01/24 01:58 Lab Results 10/01/24 10/01/24 10/01/24 Range/Units 01:25 01:58 01:58 WBC 11.0 H (3.8-10.6) k/uL RBC 4.60 (4.30-5.90) m/uL Hgb 13.7 (13.0-17.5) gm/dL Hct 40.1 (39.0-53.0) % MCV 87.1 (80.0-100.0) fL MCH 29.7 (25.0-35.0) pg MCHC 34.0 (31.0-37.0) g/dL RDW 12.4 (11.5-15.5) % Plt Count 233 (150-450) k/uL MPV 7.7 Neutrophils % 83 % Lymphocytes % 9 % Monocytes % 4 % Eosinophils % 3 % Basophils % 0 % Neutrophils # 9.1 H (1.3-7.7) k/uL Lymphocytes # 1.0 (1.0-4.8) k/uL Monocytes # 0.4 (0-1.0) k/uL Eosinophils # 0.3 (0-0.7) k/uL Basophils # 0.0 (0-0.2) k/uL Sodium 140 (137-145) mmol/L Potassium 4.2 (3.5-5.1) mmol/L Chloride 107 (98-107) mmol/L Carbon Dioxide 28 (22-30) mmol/L Anion Gap 5 mmol/L BUN 36 H (9-20) mg/dL Creatinine 1.42 H (0.66-1.25) mg/dL Est GFR (CKD-EPI)AfAm 58 (>60 ml/min/1.73 sqM) Est GFR (CKD-EPI)NonAf 50 (>60 ml/min/1.73 sqM) Glucose 122 H (74-99) mg/dL Calcium 9.0 (8.4-10.2) mg/dL Total Bilirubin 0.6 (0.2-1.3) mg/dL AST 21 (17-59) U/L ALT 19 (4-49) U/L Alkaline Phosphatase 61 (38-126) U/L Total Protein 6.7 (6.3-8.2) g/dL Albumin 4.4 (3.5-5.0) g/dL Lipase 563 H (23-300) U/L Urine Color Colorless Urine Appearance Clear (Clear) Urine pH 7.0 (5.0-8.0) Ur Specific [place] 1.017 (1.001-1.035) Urine Protein Negative (Negative) Urine Glucose (UA) Negative (Negative) Urine Ketones Negative (Negative) Urine Blood Trace H (Negative) Urine Nitrite Negative (Negative) Urine Bilirubin Negative (Negative) Urine Urobilinogen <2.0 (<2.0) mg/dL Ur Leukocyte Esterase Negative (Negative) Urine RBC 7 H (0-5) /hpf Urine WBC 1 (0-5) /hpf Ur Squamous Epith Cells <1 (0-4) /hpf Amorphous Sediment Rare H (None) /hpf Hyaline Casts 1 (0-2) /lpf Urine Mucus Rare H (None) /hpf Disposition Clinical Impression: Kidney stone Disposition: HOME SELF-CARE Condition: Fair Instructions (If sedation given, give patient instructions): Kidney Stones (ED) Is patient prescribed a controlled substance at d/c from ED?: No Referrals: Epi Chase MD [STAFF PHYSICIAN] - 1-2 days Time of Disposition: 03:25
--- NOTE | 2024-10-01 01:53 | CT ---
EXAMINATION TYPE: CT abdomen pelvis wo con DATE OF EXAM: 10/01/2024 HISTORY: flank pain recent dx of kidney stones CT DLP: 632.7 mGycm. Automated Exposure Control for Dose Reduction was Utilized. TECHNIQUE: CT scan of the abdomen and pelvis is performed without oral or IV contrast. COMPARISON: CT 6 days earlier FINDINGS: Within the limitations of a non-contrast study, the following observations are made. LUNG BASES: Tiny anterior-inferior pericardial effusion redemonstrated. LIVER/GB: No significant abnormality is appreciated. PANCREAS: No significant abnormality is seen. SPLEEN: No significant abnormality is seen. ADRENALS: No significant abnormality is seen. KIDNEYS: Multiple thin-walled cysts of varying size and shape redemonstrated scattered throughout bot h kidneys. There are bilateral nonobstructing renal calculi redemonstrated. More numerous calculi in the left kidney is redemonstrated. No right-sided hydronephrosis. Now 8 mm calculus proximal left ure ter coronal image 54 causing mild left-sided hydronephrosis. BOWEL: No significant abnormality is seen. GENITAL ORGANS: Mildly enlarged prostate consistent with BPH. LYMPH NODES: No greater than 1cm abdominal or pelvic lymph nodes are appreciated. OSSEOUS STRUCTURES: [id number] disc space narrowing at L4-L5 level is redemonstrated. OTHER: No significant additional abnormality is seen. IMPRESSION: There is now 8 mm calculus in the proximal left ureter causing mild left-sided hydronephr osis. [facility], , 10/01/2024 1:50 AM
[2024-10-01 02:02] LABS: Amorphous Sediment,Urine Rare /hpf; Appearance,Urine Clear (Clear); Bilirubin,Urine Negative (Negative); Blood,Urine Trace (Negative); Color,Urine Colorless; Glucose,Urine (UA) Negative (Negative); Hyaline Casts,Urine 1 /lpf (0-2); Ketones,Urine Negative (Negative); Leukocyte Esterase,Urine Negative (Negative); Mucus,Urine Rare /hpf; Nitrite,Urine Negative (Negative); Protein,Urine Negative (Negative); RBC,Urine 7 /hpf (0-5); Specific Gravity,Urine 1.017 (1.001-1.035); Squamous Epithelial Cell,Urine <1 /hpf (0-4); Urobilinogen,Urine <2.0 mg/dL (<2.0); WBC,Urine 1 /hpf (0-5)
[2024-10-01 02:10] LABS: Basophils % (A) 0 %; Eosinophils # (A) 0.3 k/uL (0-0.7); Eosinophils % (A) 3 %; HCT 40.1 % (39.0-53.0); HGB 13.7 gm/dL (13.0-17.5); Lymphocytes % (A) 9 %; MCH 29.7 pg (25.0-35.0); MCV 87.1 fL (80.0-100.0); Mean Platelet Volume 7.7; Monocytes # (A) 0.4 k/uL (0-1.0); Monocytes % (A) 4 %; Neutrophils # (A) 9.1 k/uL (1.3-7.7); Neutrophils % (A) 83 %; Platelet Count 233 k/uL (150-450); RDW 12.4 % (11.5-15.5)
[2024-10-01] MEDS: KETOROLAC 15 MG/ML 1 ML VIAL IVP STA (02:20)
[2024-10-01] MEDS: SODIUM CHLORIDE 0.9% 1,000 ML IV STA (02:21)
[2024-10-01 02:33] LABS: ALT 19 U/L (4-49); AST 21 U/L (17-59); African American GFR (CKD) 58 (>60 ml/min/1.73 sqM); Albumin 4.4 g/dL (3.5-5.0); Alkaline Phosphatase 61 U/L (38-126); Anion Gap 5 mmol/L; Blood Urea Nitrogen 36 mg/dL (9-20); Carbon Dioxide 28 mmol/L (22-30); Chloride 107 mmol/L (98-107); Glucose 122 mg/dL (74-99); Lipase 563 U/L (23-300); Non-African American GFR(CKD) 50 (>60 ml/min/1.73 sqM); Potassium 4.2 mmol/L (3.5-5.1); Sodium 140 mmol/L (137-145); Total Bilirubin 0.6 mg/dL (0.2-1.3); Total Protein 6.7 g/dL (6.3-8.2)
== END 2024-10-01 03:34 | disposition home or self-care (01) ==
LOC: EC 00:59
DX: N13.2 Hydronephrosis with renal and ureteral calculous obstruction (principal); Z88.1 Allergy status to other antibiotic agents; Z88.2 Allergy status to sulfonamides; Z87.442 Personal history of urinary calculi
CPT/HCPCS: 36415; 80053; 83690; 85025; 81001; 74176; 99284; 96374; 96361; J1885

== ENCOUNTER 2024-10-08 08:00 | Day surgery (SDC) | payer OTHER ==
[2024-10-07 12:31] VITALS: BMI 27.2
--- NOTE | 2024-10-07 16:58 | P.GSHP ---
History of Present Illness H&P Date: 10/07/24 69 yo male w a hx of uric acid stones. He recently passed a 2mm stone but now is having a difficult and painful 8 mm left reteral stone. He comes for left ureteroscopy with laser lithotripsy and possible stent - Constitutional Constitutional: Denies chills, Denies fever - EENT Eyes: denies blurred vision, denies pain Ears, nose, mouth and throat: Denies headache, Denies sore throat - Cardiovascular Cardiovascular: Denies chest pain, Denies shortness of breath - Respiratory Respiratory: Denies cough, Denies 7 - Gastrointestinal Gastrointestinal: Denies abdominal pain, Denies diarrhea, Denies nausea, Denies vomiting - Genitourinary (Female) Genitourinary: Denies dysuria, Denies hematuria - Genitourinary (Male) Genitourinary: Denies dysuria, Denies hematuria - Musculoskeletal Musculoskeletal: Denies myalgias - Integumentary Integumentary: Denies pruritus, Denies rash - Neurological Neurological: Denies numbness, Denies weakness - Psychiatric Psychiatric: Denies anxiety, Denies depression - Endocrine Endocrine: Denies fatigue, Denies weight change Past Medical History Past Medical History: Atrial Fibrillation, Hypertension Additional Past Medical History / Comment(s): current kidney stones, recent cardiac ablation on 09-22-24 for PVCs, recent melanoma removed from lower left back and left leg approx 2 weeks ago, hx kidney stones, ascending aortic aneurysm(Dr Olesya winchester), hx migraines, Arthritis in fingers. PVCs ablation History of Any Multi-Drug Resistant Organisms: None Reported Past Surgical History: Ablation, Cardiac Ablation, Heart Catheterization, Hernia Repair, Orthopedic Surgery, Tonsillectomy Additional Past Surgical History / Comment(s): lithotripsy x 6 times; macular pucker surgery rt eye, inguinal hernia, rt hand ganglion cyst, rt foot toe /pinned, left foot surgery,cataract rt eye, nasal surgery, COLONOSCOPY,mult cardiac ablations-last on 09-22-24. Past Anesthesia/Blood Transfusion Reactions: Motion Sickness, Postoperative Nausea & Vomiting (PONV) Additional Past Anesthesia/Blood Transfusion Reaction / Comment(s): hx nausea after lithotripsy Past Psychological History: No Psychological Hx Reported Smoking Status: Never smoker Past Alcohol Use History: None Reported Past Drug Use History: None Reported - Past Family History Mother Family Medical History: Cancer Additional Family Medical History / Comment(s): . Father Family Medical History: No Reported History Additional Family Medical History / Comment(s): rheumatic fever when young. Father at age 86 from old age. Sister(s) Family Medical History: No Reported History Additional Family Medical History / Comment(s): Patient has one sister that from some type of myelodysplastic disorder Daughter(s) Family Medical History: No Reported History Additional Family Medical History / Comment(s): . Medications and Allergies Home Medications Medication Instructions Recorded Confirmed Type Losartan [Cozaar] 25 mg PO QAM 09/15/22 10/07/24 History Sodium Bicarbonate Tab 650 mg PO TID 07/03/24 10/07/24 History Aspirin EC [Ecotrin Low Dose] 81 mg PO DAILY #30 tab 09/23/24 10/07/24 Rx HYDROcodone/APAP 7.5-325MG [[place] 1 tab PO Q6HR PRN 3 Days #12 tab 09/25/24 10/07/24 Rx 7.5-325] nadoloL 20 mg PO QAM 10/07/24 10/07/24 History Allergies Allergy/AdvReac Type Severity Reaction Status Date / Time regadenoson [From Lexiscan] Allergy Rash/Hives Verified 10/07/24 09:57 sulfamethoxazole Allergy Rash/Hives Verified 10/07/24 09:57 [From Bactrim] trimethoprim [From Bactrim] Allergy Rash/Hives Verified 10/07/24 09:57 Surgical - Exam - General well developed, well nourished, no distress - Eyes normal ocular movement, no icteric - ENT no hearing loss, no congestion - Neck no masses, trachea midline - Respiratory normal respiratory effort, clear to auscultation - Abdomen Abdomen: soft, non tender, no guarding, no rigid, no rebound - Integumentary no rash, no abnormal pigmentation - Neurologic no disoriented, no combative - Psychiatric oriented to time, oriented to person, oriented to place, speech is normal, memory intact Results - Imaging CT scan - abdomen: report reviewed, image reviewed CT scan - pelvis: report reviewed, image reviewed Assessment and Plan Assessment: Impression: uric acid urolithiasis. 8 mm left ureteral stone with obstruction Plan: cysto with left ureteroscopy, laser lithotripsy and possible stent
[~2024-10-08 08:00] MED LIST changes: +HYDROmorphone 0.5 MG/0.5 ML SYRINGE IVP PRN; -LIDOCAINE 1% (10MG/ML) FOR IV START INTRADERMA PRN
[2024-10-08] MEDS: IV FLUID CONTINUATION 1,000 ML IV ONE (08:38)
[2024-10-08] MEDS: LACTATED RINGERS 1,000 ML IV SCH (09:02)
[2024-10-08] MEDS: DEXAMETHASONE SOD PHOSPHATE 4 MG/ML 1 ML VIAL IV ONE (09:04)
[2024-10-08] MEDS: ONDANSETRON 4 MG/2 ML VIAL IVP ONE (09:04)
--- NOTE | 2024-10-08 09:23 | XR ---
EXAMINATION TYPE: XR KUB DATE OF EXAM: 10/08/2024 9:12 AM COMPARISON: CT dated 10/01/2024 CLINICAL INDICATION: Male, 69 years old with history of N20.1 Left Ureteral Stone N20.0 Renal Stone, TECHNIQUE: Single view of the abdomen. FINDINGS: Right renal calculi: None Visualized. Right ureteral calculi: None Visualized. Left renal calculi: None Visualized. Left ureteral calculi: None Visualized. Pelvic calcifications: None Visualized. Bowel gas pattern is unremarkable. No free air. No mass effects. IMPRESSION: 1. Visualized left ureteral calculus on recent CT is not clearly identified on this examination at th is time. [facility], , 10/08/2024 9:21 AM
[2024-10-08] MEDS ORDERED: GLYCOPYRROLATE 0.2 MG/ML 2 ML VIAL ONE (09:39)
[2024-10-08] MEDS ORDERED: NEOSTIGMINE 1 MG/ML 10 ML VIAL ONE (09:39)
[2024-10-08] MEDS ORDERED: ePHEDrine 50 MG/ML 1 ML VIAL ONE (09:39)
[2024-10-08] MEDS ORDERED: SUCCINYLCHOLINE CHLORIDE 200 MG/10 ML VIAL IV ONE (09:39)
[2024-10-08] MEDS ORDERED: fentaNYL (PF) 50 MCG/ML 2 ML AMP ONE (09:39)
[2024-10-08] MEDS ORDERED: ROCURONIUM 10 MG/ML (5 ML VIAL) IV ONE (09:39)
[2024-10-08] MEDS ORDERED: PROPOFOL 10 MG/ML 20 ML VIAL IV ONE (09:39)
[2024-10-08] MEDS ORDERED: LIDOCAINE 1% INJ 10MG/ML (20 ML MDV) ONE (09:39)
[2024-10-08] MEDS ORDERED: MIDAZOLAM 2 MG/2 ML VIAL ONE (09:39)
--- NOTE | 2024-10-08 10:48 | P.OP ---
Date of Procedure: 10/08/24 Preoperative Diagnosis: left ureteral calculus Postoperative Diagnosis: same Procedure(s) Performed: cystoscopy, left ureteroscopy with laser lithotripsy Anesthesia: JAY Surgeon: Epi Chase Estimated Blood Loss (ml): 0 Pathology: other (stone) Condition: stable Disposition: PACU Indications for Procedure: the patient is 69. He has a history of uric acid urolithiasis. He recently passed a tiny stone from the right he now has an 8 mm midureteral stone on the left it is causing colic. He comes for ureteroscopy and laser lithotripsy Description of Procedure: patient brought to the operative suite. Given a general anesthetic. Placed lithotomy position with sterile prep and drape. Cystoscopy with a Foroblique lens and 21-Tongan sheath identifies normal urethra. The prostate is somewhat enlarged. The bladder self trabeculated. Both ureteral orifices are normal. The left ureteral orifice is intubated with an 035 wire passed up to the mid ureter. Meet resistance at the stone but I'm able to advance it by the stone. Over the wire passed [id number] reentry sheath. The inner sheath is removed. I passed the flexible ureteroscope up to the stone. With the 200 laser probe the stone was broken into tiny fragments and flushed out of the ureter. The larger fragments are basketed. At the end of the procedure I passed the scope up into the kidney and see no remaining stones. Pullout ureteroscopy does not identify enough edema to leave the stent and there are no remaining stones. The bladder is drained the patient is awakened and returned recovery in good condition. He tolerated procedure well be discharged home upon recovery and found the office about 10 days
[2024-10-08 10:52] VITALS: TEMP 97
--- NOTE | 2024-10-08 11:16 | FL ---
Fluoroscopy History: CYSTOSCOPY LITHOTRPSY RUPESH DAP 0.49424 FL 1.4 SEC LEFT SIDE CYSTOSCOPY [facility], , 10/08/2024 11:13 AM
[2024-10-08 12:31] VITALS: BP 160/97; PULSE 68; RESP 16
== END 2024-10-08 12:34 | disposition home or self-care (01) ==
LOC: OR 08:00
PROVIDERS: ATTEND Urology
DX: N20.1 Calculus of ureter (principal); I10 Essential (primary) hypertension; I48.91 Unspecified atrial fibrillation; Z85.820 Personal history of malignant melanoma of skin; Z88.1 Allergy status to other antibiotic agents; Z88.2 Allergy status to sulfonamides; Z90.89 Acquired absence of other organs; Z98.890 Other specified postprocedural states; Z79.82 Long term (current) use of aspirin; Z79.899 Other long term (current) drug therapy
CPT/HCPCS: 52356; 82365; 74018; C1769; J2250; J0330; J1100; J2710; J0690; J2405; J2003; J3010; J2704; J1596

== ENCOUNTER 2024-11-24 06:04 | Day surgery (SDC) | payer OTHER ==
[2024-11-24] MEDS ORDERED: LACTATED RINGERS 1,000 ML IV SCH (06:28)
[2024-11-24 06:54] VITALS: TEMP 96.8
[2024-11-24] MEDS: IV FLUID CONTINUATION 500 ML IV ONE ×2 (07:02)
[2024-11-24] MEDS: SODIUM CHLORIDE 0.9% 500 ML 500 ML IV SCH (07:05)
[2024-11-24] MEDS ORDERED: PROPOFOL 10 MG/ML 20 ML VIAL IV ONE (07:27)
[2024-11-24 07:56] LABS: African American GFR (CKD) 82 (>60 ml/min/1.73 sqM); Anion Gap 8 mmol/L; Blood Urea Nitrogen 31 mg/dL (9-20); Calcium 9.4 mg/dL (8.4-10.2); Carbon Dioxide 30 mmol/L (22-30); Chloride 101 mmol/L (98-107); Glucose 93 mg/dL (74-99); Non-African American GFR(CKD) 71 (>60 ml/min/1.73 sqM); Sodium 139 mmol/L (137-145)
[2024-11-24 08:27] LABS: Potassium 4.4 mmol/L (3.5-5.1)
[2024-11-24 08:36] VITALS: RESP 16
--- NOTE | 2024-11-24 08:50 | P.PCN ---
Date of Procedure: 11/24/24 Operative Findings: Cardioversion Report Performing physician Bubba Dacosta M.D. Procedure performed Successful cardioversion of atrial fibrillation to normal sinus mechanism using 200 J at first attempt Indication Symptomatic atrial fibrillation Complication None Level of sedation The procedure was performed under deep sedation using propofol with DEPUTY CORONER in the room Procedure description After obtaining an informed consent the patient was brought to the recovery room. Sedation was introduced using propofol with DEPUTY CORONER in the room. Subsequently the patient cardioverted from atrial fibrillation to normal sinus mechanism using 200 J and first attempt Conclusion Successful cardioversion of atrial fibrillation to normal sinus mechanism using 200 J Postprocedure management Continue the current medical regimen Continue oral anticoagulation Follow-up with the patient
[2024-11-24 08:55] VITALS: BP 153/84; PULSE 53
== END 2024-11-24 09:08 | disposition home or self-care (01) ==
LOC: OR 06:04
PROVIDERS: ATTEND Internal Medicine Interventional Cardiology
DX: I48.0 Paroxysmal atrial fibrillation (principal); I49.3 Ventricular premature depolarization; I10 Essential (primary) hypertension; Z79.01 Long term (current) use of anticoagulants; Z79.899 Other long term (current) drug therapy; Z88.2 Allergy status to sulfonamides; Z88.1 Allergy status to other antibiotic agents
CPT/HCPCS: 92960; 80048; 99152; J2704

== ENCOUNTER → 2025-03-31 | Outpatient (CLI) | payer OTHER ==
--- NOTE | 2025-03-31 14:06 | XR ---
EXAMINATION TYPE: XR KUB DATE OF EXAM: 03/31/2025 COMPARISON: KUB radiograph 10/08/2024, significant pelvis 10/01/2024 HISTORY: N20.0 TECHNIQUE: Single supine KUB image of the abdomen is obtained FINDINGS: Small bowel demonstrates no evidence for dilatation or air fluid levels. Gas and fecal material is seen in non-distended colon. No convincing evidence for pneumoperitoneum. Stable left-sided pelvic phlebolith. Right hemisacrum benign bone island is seen in prior CT. No def initive renal or ureteral calculus. The lung bases are clear. The osseous structures are intact. IMPRESSION: 1. Overall nonobstructive bowel gas pattern. 2. No definitive renal or ureteral calculus. [facility], , 03/31/2025 2:04 PM
== END | disposition home or self-care (01) ==
LOC: RADXRMAIN 13:41
PROVIDERS: ATTEND Urology
DX: N20.0 Calculus of kidney (principal)
CPT/HCPCS: 74018

== ENCOUNTER → 2025-04-27 | Outpatient (CLI) | payer MEDICARE ==
--- NOTE | 2025-04-27 10:50 | CT ---
EXAMINATION TYPE: CT abdomen pelvis wo con DATE OF EXAM: 04/27/2025 10:39 AM COMPARISON: 10/01/2024 CLINICAL INDICATION: Male, 70 years old with history of N20.0 CALCULUS OF KIDNEY; rt flank pain TECHNIQUE: Axial CT abdomen pelvis wo con;Sagittal and coronal reformats were created on a separate workstation. Contrast used: mL of , (none if empty) Oral contrast used: without Oral Contrast (none if empty) CT DLP: 425.9 mGycm, Automated exposure control for dose reduction was used. FINDINGS: LOWER CHEST: Unremarkable ABDOMEN LIVER: Unremarkable GALLBLADDER AND BILE DUCTS: Unremarkable. PANCREAS: Unremarkable. SPLEEN: Unremarkable. ADRENAL GLANDS: Unremarkable. KIDNEYS AND URETERS: No evidence of hydronephrosis or obstructing renal calculus. The ureters are unr emarkable. Multiple simple appearingr renal cysts measuring up to 7.6 cm on the left and 5.5 cm on the right. Nonobstructing left renal calculus measuring up to 5 mm. Nonobstructing right renal 2 mm calculus. PELVIS BLADDER: No evidence for wall thickening or mass given limitations of exam. REPRODUCTIVE: Unremarkable. ABDOMEN & PELVIS STOMACH AND BOWEL: No evidence of bowel obstruction. PERITONEUM/RETROPERITONEUM: No evidence of pneumoperitoneum or free fluid. VASCULATURE: No evidence of aortic aneurysm. MUSCULOSKELETAL: No acute osseous abnormalities LYMPH NODES: No gross evidence for lymphadenopathy. SOFT TISSUE/ABDOMINAL WALL: Unremarkable IMPRESSION: 1. No evidence for acute abdominal process. No evidence for obstructive uropathy or hydronephrosis. 2. Bilateral nonobstructing renal calculi. 3. Bilateral simple appearing renal cyst. No follow-up recommended. 4. Normal appendix. [facility], , 04/27/2025 10:48 AM
== END | disposition home or self-care (01) ==
LOC: RADCTMAIN 10:12
PROVIDERS: ATTEND Urology
DX: N20.0 Calculus of kidney (principal); N28.1 Cyst of kidney, acquired
CPT/HCPCS: 74176